=== PATIENT | female | born 1935 | race Caucasian/White ===

== ENCOUNTER → 2018-01-27 | Outpatient (CLI) | payer OTHER ==
[~2018-01-27] MED LIST: ASPIR 8181 MG PO; CARDIZEM CD240 M1 PO; CENTRUM SILVER1 EAC4 PO; FISH OIL 1,001000 M2 PO; IBUPROFEN 200200 M1 PO; PREVACID30 MG PO; TRAMADOL 50 MG50 MG PO; ZOCOR20 MG PO
== END ==
LOC: RAD 09:39
DX: R05 Cough (principal); D71 Functional disorders of polymorphonuclear neutrophils; I70.0 Atherosclerosis of aorta

== ENCOUNTER 2019-01-06 11:05 | Inpatient (IN) | payer OTHER ==
[~2019-01-06] VITALS: Ht 162.6 cm; Wt 57.0 kg
--- NOTE | ~2019-01-06 | H ---
[facility] [place] [address] HISTORY AND PHYSICAL Name: COTY LUZ Room #: 513-P ADM IN M.R.#: [id number] Admission: 01/06/19 ������������������ Attend Phys: Tremayne Tsang MD Discharge: ������������������ Date of : 34 Report #: [id number] THIS REPORT FOR: //name// CC: Tremayne Luz DATE OF SERVICE: 01/06/2019 POSTADMISSION PHYSICIAN EVALUATION: SUBJECTIVE: This is an 83-year-old white female who was admitted from [facility] with right basal ganglia intracranial hemorrhage, left hemiparesis, dysarthria, hypertension. She had a moderate size right basal ganglia hemorrhage with intraventricular extension of the hemorrhage. She was followed conservatively by Neurosurgery. Please see the full admission note dictation from Dunia Hunter regarding the full history and physical. PAST MEDICAL HISTORY: Please see the full medication listing. SOCIAL HISTORY: Please see the full medication listing. HABITS: Please see the full medication listing. CODE STATUS: Please see the full medication listing. ALLERGIES: Please see the full medication listing. MEDICATIONS: Please see the full medication listing. REVIEW OF SYSTEMS: She complains of some nausea this morning. Had some right hip discomfort. No complaints of chest pain, shortness of breath, abdominal discomfort. PHYSICAL EXAMINATION: VITAL SIGNS: Temperature 97.8, pulse 64, respirations 22, blood pressure is 90/46. NEUROLOGIC: She is alert, pleasant, small statured female. She does have some mild dysarthria with her speech. While I was examining her, she had complaints of nausea. CHEST: Sounded clear to auscultation. CARDIOVASCULAR: Regular rate and rhythm. ABDOMEN: Bowel sounds positive, nontender. GENITOURINARY AND RECTAL: Deferred. EXTREMITIES: She does have some decreased range of motion of the right upper extremity, but appears to have reasonable certified medical records coder, strengths probably grade 3+ to 4-/5, right lower extremity is probably 3+ to 4-/5, left upper extremity [facility] [address] [place] [address] HISTORY AND PHYSICAL Name: COTY LUZ Room #: 51-[facility] [place] [facility].#: [id number] Admission: 01/06/19 ������������������ Attend Phys: Tremayne Tsang MD Discharge: ������������������ Date of : 34 Report #: [id number] revealed decreased tone. She could not move her fingers for any certified medical records coder, but appeared to have at least 2/5 with left elbow flexion and extension. As far as her left lower extremity she was able to extend from the hip, but I could not have actually ____ volitionally move that left leg other than some gross extension. No focal calf swelling. No distal lower extremity edema. She appears to have decreased in distal sensation with her prior diagnosis of peripheral neuropathy. We also has decreased sensation of that left upper and left lower extremity. She has definite decreased sitting balance. HISTORY OF PRESENT ILLNESS: Shortly after my evaluation, I was called back to see her and she had complaints of some diaphoresis and actually had an apparent presyncopal episode with some decreased responsiveness was seen sitting in the wheelchair. We transferred her into the bedside chair tilt, the head back and she became more responsive. Her blood pressure was sitting in the wheelchair was 90/46 with a pulse of 64. Once we got her lying in bed, was 134/63, pulse of 73. I asked for a rapid response to be called. We did transfer her to the bed, she became more alert, was pleasant, appropriate. EKG changes were noted with question of a possible acute CO. I met with Dr. Luz and she has been here to assess the patient as well. The plan is to have her go down to the coronary care unit for further assessment and evaluation. ASSESSMENT: 1. Right basal ganglia intracranial hemorrhage. 2. Left hemiparesis. 3. Near syncopal episode. 4. Dysarthria. 5. Hypertension with goal of systolic blood pressure to be less than 140. 6. Peripheral neuropathy. 7. Gastroesophageal reflux. 8. Glaucoma. 9. Hyperlipidemia. 10. Right hip pain status post fall with negative x-rays for acute process. PLAN: The patient was admitted for acute in-hospital inpatient rehabilitation, but will now be transferred down to the CCU. From a postadmission physician evaluation perspective, there are relevant changes since the preadmission screening as well documented above. We will be following along with the patient as outplacement consultant post-discharge. ��������������������������������������������� ���������������������������������������� By: ��������������������������������������������� 0917 0950 Tremayne Tsang MD /nt
--- NOTE | ~2019-01-06 | D ---
[facility] [place] [address] DISCHARGE SUMMARY Name: COTY LUZ Room #: 202-P ADM IN M.R.#: [id number] Admission: 01/06/19 ������������������ Attend Phys: Tremayne Tsang MD Discharge: ������������������ Date of : 34 Report #: [id number] THIS REPORT FOR: //name// CC: Tremayne Luz DATE OF SERVICE: 01/07/2019 Please see the post-admission physician evaluation dictation. The patient is being discharged to the CCU from the rehab hagen to rule out for an UT and for further evaluation. DISCHARGE DIAGNOSES: From the rehab hagen include the followin. Right basal ganglia intracranial hemorrhage. 2. Left hemiparesis. 3. Presyncopal episode. 4. Dysarthria. 5. Hypertension. 6. Peripheral neuropathy. 7. Gastroesophageal reflux disease. 8. Glaucoma. 9. Hyperlipidemia. 10. Right hip pain status post fall with negative x-rays. Continued care as per Dr. Luz. We will follow, counseled regarding rehab issues from a consult basis. ��������������������������������������������� ���������������������������������������� By: ��������������������������������������������� 0921 1229 Tremayne Tsang MD /nt
[~2019-01-06 11:05] MED LIST changes: +FLUSH IV PUSH; +HOME MEDICATION OPHTHALMIC; +MIRALAX17 GM PO; +Tylenol 325MG Caplet PO
[2019-01-06 11:20] VITALS: BP 139/63
[2019-01-06 11:46] VITALS: BP 139/63
--- NOTE | 2019-01-06 12:10 | NUR ---
PT ARRIVED TO IN [facility]IA [facility]. SHE WAS ASSISTED VIA SANGEETA LIFT TO THE WHEELCHAIR AND LATER STATED TO RN THAT THE TRANSPORTER STILL HAD HER GLASSES, AND THAT SHE HAD FALLEN OUT OF THE WHEELCHCAIR WHILE IN THE TRANSPORT VAN, AND THEY HAD TO CALL 911 FOR ASSIST ON THE WAY HERE TO [facility]. SR. CASAREZ NOTIFIED NM OF THIS IMMEDIATELY, AND WHEN NM CAME TO PT'S ROOM, THE [employer] RECRUITER EVER NIXON WAS AT BEDSIDE, HAD RETURNED PT'S GLASSES, AND EXPLAINED TO PT'S DAUGHTER COTY AND PT'S GRANDSON THAT PT HAD INDEED SLID OUT OF HER WHEELCHAIR WHILE TECH WAS DRIVING, SHE HAD IMMEDIATELY STOPPED, AND CALLED 911, AND THE [facility]RE DEPT ARRIVED AND ASSISTED PT BACK INTO THE TO COMPLETE HER TRIP TO [facility]. THERAPY WAS HELD AND TYLER MIX EXAMINED THE PATIENT AND ORDERED XRAYS FOR BILAT HIPS AND PELVIS. COUTURIERE WAS NOTIFIED. FAMILY AT BEDSIDE.
--- NOTE | 2019-01-06 13:52 | NUR ---
new admit today team meeting, recommendation : xray rt fall in transport slid out of wc on way here. therapy evals and will re team .
--- NOTE | 2019-01-06 14:45 | NUR ---
DR. PENA WAS NOTIFIED OF INCIDENT DURING TRANSPORT FROM [facility], AND ADDED XRAY FOR LT KNEE. ALL XRAY RESULTS WERE REVIEWED IN TEAM CONFERENCE WITH THE INTERDISCIPLINARY TEAM AND IT WAS DEEMED APPROPRIATE TO RESUME FULL THERAPIES, THERE WAS NO REPORT OF FRACTURE. RN SR. CASAREZ NOTIFIED PT AND FAMILY AT THE BEDSIDE THAT WE ARE OK TO RESUME THERAPIES, AND FAMILY STATED THAT THEY HAD NOTIFIED DR. RAMÍREZ OF THE INCIDENT, THEY HAD PREVIOUSLY ASKED SR. CASAREZ TO REFRAIN FROM CALLING HIM RIGHT AWAY. PT WORKED WITH PHYSICAL THERAPY, BUT C/O NAUSEA. ANTIEMETIC ORDERED PER DR. RMAÍREZ, AND RN ASSESSING WITH PT CURRENTLY.
--- NOTE | 2019-01-06 19:35 | NUR ---
RECEIVED REPORT FROM MED AT 1030. PT ARRIVED TO [facility] AT 5N AROUND 1115. PT ADMITED FOR RIGHT BASAL GANLIA ICH, WITH LEFT SIDE HEMPARESIS AND DYSARTHRIA.PT REPORTS SHE HAD ROUGH DRIVE. TRANSPORTATION REPORTED THAT SHE WAS SLIPPED FROM HER WC TWICE AND [employer] HAD TO BE CALLED AND HELP PT GET BACK TO HER WC. NOTIFIED DR. PENA, AND CRISTY ABOUT THE INCIDENT. OBTAINED ORDER FOR XRAY OF BILATERAL HIPS, LEGS AND KNEES. NO FRACTURES AT THIS MOMENT. HAD LITTLE PAIN EARLIER BUT DENIES NOW. XRAY RESULTS WERE NOTIFIED DR. HOLLEY WHO CAME AND REVIEWED ADMISSION MEDS. DR. FRANCOIS ALSO WAS NOTIFIED PER CONSULT. PATIENT A/O X4. HAS POOR EYE SIGHT, LEFT SIDE WEAKNESS BUT COGNITIVE INTACT. VSS ON RA. NO SKIN ISSUES, EXCEPT LACERATION ON RIGHT ANKLE WITH BANDAID, NO NEED OF TREATMENT. WILL CONTINUE TO MONITOR. PATIENT EVALUATED BY PHYSICAL THERAPY. CONSENTS SIGNED. ADMISSION ASSESSMENT COMPLETE. PATIENT ORIENTED TO ROOM AND REHAB UNIT. MED ORDERS FAXED TO PHARMACY. PATIENT REFUSED TO EAT LUNCH, REFUSED DINNER AT FIRST DIDN'T FEEL HUNGRY. ENCOURAGED PT TO EAT AND FED PT. SHE ATE ALL MASHED POTATOES. USED CALL LIGHT APPROPRIATELY. FALL PRECAUTIONS IN PLACE. PT CONT B &B, HAD MODERATE LOOSE STOOL PER BEDPAN. HAS LEFT SIDE WEAKNESS, NOT ABLE TO TURN BY HERSELF, SHE IS ON TURN Q2HR. GAVE REPORT TO NIGHT NURSE TO CONTINUE TO MONITOR. RESTING IN BED AT CHANGE OF SHIFT. FAMILY AT BEDSIDE.
[2019-01-06 19:40] VITALS: BP 119/54
--- NOTE | 2019-01-07 03:14 | NUR ---
TURNING PATIENT Q2H, EXPLAINED TO PATIENT AND OVERNIGHT VISITOR (DAUGHTER) THAT WE REALLY LIKE TO TURN PATIENTS UNTIL THEY ARE A LITTLE MORE MOBILE. URINATING ON BEDPAN, 300 CC VOID WAS ACCIDENTLY DUMPED INSTEAD OF SENT TO LAB FOR UA, WILL TRY TO AVOID DOING THAT AGAIN. INCONTINENT SMEAR AMOUNT BM
[2019-01-07 06:04] LABS: MCH 30.9 pg (26.0-34.0); MCHC 33.4 g/dL (28.0-37.0); MCV 92.5 fL (80.0-100.0); RBC 4.22 mil/uL (4.20-5.00); WBC 13.2 thou/uL (4.0-11.0)
[2019-01-07 06:12] LABS: CALCIUM 9.5 mg/dL (8.5-10.1); CREATININE 0.9 mg/dL (0.6-1.0); POTASSIUM 4.3 mmol/L (3.5-5.1)
[2019-01-07 07:30] VITALS: BP 123/64
[2019-01-07 08:40] VITALS: BP 90/46
[2019-01-07 08:57] VITALS: BP 90/46
--- NOTE | 2019-01-07 09:08 | NUR ---
ASSUME PT CARE AT 0700. NIGHT NURSE SAID PT HAD RESTFUL NIGHT. ATTEMPTED TO UA THIS AM. BUT PT WAS INCONT THIS AM. ASSISTED PT UP TO DINNING ROOM. ST WORKED WITH PT THIS AM. PT ATE 20% BREAKFAST, C/O PAIN ON RIGHT HIP, TYLENOL GIVEN. C/O NAUSEA. PRN ZOFRAN GIVEN AND ASSISTED PT ROOM. PT FELT UNCOMFORTABLE ASSISTED PT TO RECLINER. VSS TAKEN. PT WAS DIAPHOROSIS, CLAMMY. HR 90/46, HR 64 R22, SAT 92% ON RA. RAPID RESPONSE CALLED. DR. KING AND DR. PENA PRESENT. EKG SHOWS ACUTE AZ. VP SECURITIES PRESENT AND PT WILL TRANSFER TO ROOM 202. CALLED CCU AND THEY WILL CALL BACK LATER FOR REPORT. FAMILY AT BEDSIDE. WILL CONTINUE TO MONITOR.
[2019-01-07] MEDS ORDERED: CARDURA4 MG PO ×2 (09:16)
[2019-01-07] MEDS ORDERED: BENAZEPRIL HCL20 MG PO ×2 (09:16)
[2019-01-07] MEDS ORDERED: CALCIUM 500 +1 EAC5 PO ×2 (09:17)
[2019-01-07] MEDS ORDERED: TYLENOL EXTRA500 MG PO ×2 (09:17)
[2019-01-07] MEDS ORDERED: BISACODYL SUPP10 MG RECTAL ×2 (09:17)
[2019-01-07] MEDS ORDERED: COLACE 100 MG100 MG PO ×2 (09:19)
[2019-01-07] MEDS ORDERED: SENNA8.6 MG PO ×2 (09:19)
[2019-01-07] MEDS ORDERED: MILK OF MA2400 MG/11 PO ×2 (09:19)
[2019-01-07] MEDS ORDERED: PROTONIX 20 MG20 M1 PO ×2 (09:20)
[2019-01-07] MEDS ORDERED: ZOFRAN 4 MG ORAL4 MG DISSOLVE ×2 (09:20)
[2019-01-07] MEDS ORDERED: PREDNISONE 5 MG5 M1 PO ×2 (09:22)
[2019-01-07] MEDS ORDERED: HOME MEDICATION SUBQ ×2 (09:22)
[2019-01-07] MEDS ORDERED: HOME MEDICATION OPHTHALMIC ×4 (09:22)
[2019-01-07] MEDS ORDERED: A THRU Z ADVAN1 EAC1 PO ×2 (09:22)
--- NOTE | 2019-01-07 09:30 | NUR ---
RAPID RESPONSE CALLED AT 0842 THIS AM R/T NEAR SYNCOPE WITH HYPOTENSION AT 90/48. EKG CHANGES NOTED, PT WILL BE TRANSFERRED TO FOR CLOSER MONITORING PER DR RAMÍREZ ORDER.
--- NOTE | 2019-01-07 11:01 | H ---
[facility] [place] [address] HISTORY AND PHYSICAL Name: DESIREEWAIKim Chirinos Room #: 202-P ADM IN M.R.#: [id number] Admission: 01/06/19 ������������������ Attend Phys: Tremayne Tsang MD Discharge: ������������������ Date of : 34 Report #: [id number] THIS REPORT FOR: //name// CC: Tremayne Myrick MD DATE OF SERVICE: 01/06/2019 CHIEF COMPLAINT: Stroke. HISTORY OF PRESENT ILLNESS: The patient is an 83-year-old [place] female who suffered an acute stroke involving the right basal ganglia. It was a hemorrhagic stroke with blood noted in the ventricles on initial and subsequent CT scans. The second scan was CTA and aneurysm was not seen. No malignancy or evidence of tumor or midline shift was seen either. Her main deficit is marked left-sided loss of strength in the face, upper and lower extremities. She maintained excellent mental function throughout her stay at the [facility]. There was no trauma associated with the incident. She apparently passed out at the time of the initial bleed and was caught before she fell. Paramedics were called at the scene immediately and the patient was evaluated and admitted through the [facility] Emergency Room. PAST MEDICAL HISTORY: 1. Autoimmune uveitis being treated with Humira under the care of Dr. Royce Myrick. 2. Polymyalgia rheumatica. 3. Hypertension. 4. Hyperlipidemia. 5. She is 14, para 14, LC 14. 6. She has had bilateral cataract surgeries. 7. She has had hysterectomy after failed uterine prolapse. 8. She also has a history of osteoarthritis in multiple sites including the lower back and knees. 9. Gastroesophageal reflux disease history. 10. She has had bilateral carpal tunnel repairs in the last couple of years. ALLERGIES: She has no known drug allergies. MEDICATIONS: At the time of this admission includes doxazosin 1 mg by mouth nightly (new medication), lisinopril 20 mg by mouth daily (new medication), atorvastatin daily, multivitamin daily, calcium with vitamin D supplements, pantoprazole, Simbrinza eyedrops 1 drop in each eye b.i.d. for glaucoma, [address] [address] HISTORY AND PHYSICAL Name: COTY LUZ Room #: 202-P [facility].#: [id number] Admission: 01/06/19 ������������������ Attend Phys: Tremayne Tsang MD Discharge: ������������������ Date of : 34 Report #: [id number] prednisolone eyedrops 1% one drop in each eye twice daily for treatment of uveitis. (The patient was until recently treated with diltiazem for her hypertension, but had developed orthostatic hypotension issues and the medication was discontinued with resolution of that problem). FAMILY HISTORY: Her father in his late 60s or early 70s from emphysema and coronary artery disease. He was a smoker. Her mother approximately the same age from leukemia. Her sister of complications of a diffuse meningioma approximately 25 years ago. She has one additional sister who is alive and well. SOCIAL HISTORY: She is 3 years ago, mother of 14 children. She has no vices as regards to tobacco or alcohol or illicit substances. She is Caodaism. REVIEW OF SYSTEMS: During the transfer from [facility] on the date of this admission, she apparently slipped from her wheelchair within the wheelchair van twice. The second time she was unable to be lifted and paramedics had to be called in order to reestablish her in her wheelchair. She currently denies any problems. PHYSICAL EXAMINATION: VITAL SIGNS: Temperature was 36.5 degrees Celsius, pulse 73, respirations 20, blood pressure 139/63 with a pulse oximetry of 96% on arrival. GENERAL: The patient is a pleasant, somewhat tired and nauseous elderly [place] female in no acute distress. HEENT: The extraocular muscles are intact. There is a left facial droop, which is mild to moderate in severity. Her voice is fairly normal. Oropharynx is moist and pink. No lesions, no exudates. No focal head trauma noted during exam. NECK: Without adenopathy or thyromegaly or mass. LUNGS: Clear bilaterally. CARDIAC: Reveals a regular rate and rhythm with a systolic ejection murmur. ABDOMEN: Soft. Bowel sounds are present, no visceromegaly or masses. EXTREMITIES: Show a contusion with joint effusion at the left knee medially and suspicion of developing bruise. Peripheral pulses easily palpated in all 4 distal extremities. NEUROLOGIC: The patient has a diffuse left hemiplegia/hemiparesis. There is a minimal movement in the left upper extremity and even less in the left lower extremity. Her right side is intact. She does have some left-sided neglect. It is less noticeable today than at the time of presentation. MENTAL STATUS: She is alert, fully oriented, no hallucinations or delusions, somewhat of a flat affect because of the facial paralysis. [facility] [address] [place] [address] HISTORY AND PHYSICAL Name: COTY LUZ Room #: 202-P ADM IN M.R.#: [id number] Admission: 01/06/19 ������������������ Attend Phys: Tremayne Tsang MD Discharge: ������������������ Date of : 34 Report #: [id number] LABORATORY DATA: X-rays of the bilateral hips and pelvis and left knee today were unremarkable, mild osteoarthritic changes are noted. ASSESSMENT AND PLAN: 1. Right basal ganglia hemorrhagic stroke - I had an extensive visit with Dr. Mayo at [facility] from the hospitalist Neurology Department. Her initial thought was that the stroke was related to hypertension. Upon hearing about some of her other issues such as the peripheral neuropathy and the uveitis and possible polymyalgia rheumatica, she is inclined to believe that the patient may have an autoimmune condition that contributes to this. Her recommendations included aggressive inpatient rehabilitative therapy as well as followup scan of her brain using magnetic resonance imaging with contrast in about 2 months. She would like to have the patient seen in the Neurology Clinic in followup after discharge. 2. Hypertension - See current medications regimen. 3. Acute intermittent urinary retention since the stroke - she was started on doxazosin at night to see if that would help lower blood pressure and help her with her bladder emptying. She has had postvoid residual scans and straight caths that revealed anywhere from 140 to 500 plus mL of urine in the past several days since the stroke. She did have a urinalysis prior to leaving , which suggested that that was positive for nitrites and as there is a possibility she is developing a urinary tract infection, we will get a repeat urinalysis with culture again here tomorrow. 4. Autoimmune uveitis, currently being treated with Humira. She had her last Humira injection 48 hours ago. We will continue these injections every 2 weeks as per the program Dr. Myrick has set her upon. We will supply these from her home regimen. 5. Suspected polymyalgia rheumatica - I will discuss this possible diagnosis with Dr. Myrick. At the time of the stroke, she was on a prednisone regimen which was tapering that I had established and had intended to speak with Dr. Myrick about prior to her next followup visit with him. I have further concerns that should the peripheral neuropathy and uveitis and polymyalgia all be related, might her stroke have an autoimmune (vasculitis) etiology. We will further discuss with Dr. Myrick. 6. Gastroesophageal reflux disease - continue current proton pump inhibitor therapy. 7. Hyperlipidemia - continue on atorvastatin. 8. Healthcare maintenance - the patient to have a bone density at her next visit with Dr. Myrick. ��������������������������������������������� <ELECTRONICALLY SIGNED> ���������������������������������������� By: Royce Luz MD ��������������������������������������������� 01/07/19 1101 1819 1912 Royce Luz MD /nt
--- NOTE | 2019-01-07 11:27 | 2DMMODE ---
[facility] [email or web address] [address] 2 D/M-MODE ECHOCARDIOGRAM Name: COTY RAMÍREZ Room #: 202-P [facility] IN ..#: [id number] ������������� Admission: 01/06/19 ������������� Attend Phys: Tremayne Tsang, Discharge: ��� ������������� ��� Date of : 34 Date of Service: 01/07/19 1127 �� Report #: [id number] �������� ��������������������������������������������[id number] THIS REPORT FOR: //name// APPROVED REPORT Study performed: 01/07/2019 10:17:26 EXAM: Comprehensive 2D, Doppler, and color-flow Echocardiogram Patient Location: Bedside Room #: 202 Status: routine BSA: 1.60 HR: 71 bpm BP: 90/46 mmHg Rhythm: NSR Other Information Study Quality: Adequate Risk Factors: Cardiac Risk Factors: Hyperlipidemia Indications Aortic Valve Disease Murmur Hypertension/HDD 2D Dimensions RVDd: 27.54 mm LVOT Diam: 18.48 (18-24mm) IVC: 13.00 mm Volumes Left Atrial Volume (Systole) Single Plane 4CH: 51.90 mL Single Plane 2CH: 41.99 mL LA ESV Index: 33.00 mL/m2 Aortic Valve AoV Peak Kirill.: 3.84 m/s AO Peak Gr.: 58.84 mmHg LVOT Max P.80 mmHg AO Mean Gr.: 32.73 mmHg LVOT Mean P.18 mmHg AO V2 Mean: 2.64 m/s LVOT Max V: 1.30 m/s AO V2 VTI: 73.21 cm LVOT Mean V: 0.96 m/s YANET (VTI): 0.99 cm2 LVOT V1 VTI: 26.95 cm YANET Vmax: 0.91 cm2 [facility] [place] [place] [place] [address] 2 D/M-MODE ECHOCARDIOGRAM Name: COTY RAMÍREZ Room #: 202-P [facility] IN [facility].#: [id number] ������������� Admission: 01/06/19 ������������� Attend Phys: Tremayne Tsang, Discharge: ��� ������������� ��� Date of : 34 Date of Service: 01/07/19 1127 �� Report #: [id number] �������� ��������������������������������������������[id number] SV (LVOT): 72.23 mL Mitral Valve E/A Ratio: 0.5 MV Decel. Time: 513.85 ms MV E Max Kirill.: 0.78 m/s MV A Kirill.: 1.43 m/s MV PHT: 149.02 ms IVRT: 133.79 ms Pulmonary Valve PV Peak Kirill.: 0.99 m/s PV Peak Gr.: 3.94 mmHg Pulmonary Vein P Vein S: 0.54 m/s P Vein A: 0.32 m/s P Vein D: 0.32 m/s P Vein A Dur.: 87.7 msec P Vein S/D Ratio: 1.69 Tricuspid Valve TR Peak Kirill.: 2.50 m/s TR Peak Gr.: 24.93 mmHg PA Pressure: 30.00 mmHg Left Ventricle The left ventricle is normal size. There is normal LV segmental wall motion. Mild concentric left ventricular hypertrophy. Left ventricular systolic function is hyperdynamic. LVEF is >70%. Grade I - abnormal relaxation pattern. Right Ventricle The right ventricle is normal size. The right ventricular systolic function is normal. Atria Left atrium is at the upper limits of normal. The right atrium size is normal. Aortic Valve The aortic valve is normal in structure. Aortic valve is calcified. No aortic regurgitation is present. Moderate to severe aortic stenosis. Mitral Valve The mitral valve is normal in structure. Trace mitral regurgitation. No evidence of mitral valve stenosis. [facility] [address] [place] [address] 2 D/M-MODE ECHOCARDIOGRAM Name: DESIREECOTY Room #: 202-P [facility] IN .R.#: [id number] ������������� Admission: 01/06/19 ������������� Attend Phys: Tremayne Tsang, Discharge: ��� ������������� ��� Date of : 34 Date of Service: 01/07/19 1127 �� Report #: [id number] �������� ��������������������������������������������[id number] Tricuspid Valve The tricuspid valve is normal in structure. There is trace tricuspid regurgitation. Estimated PAP 30 mmHg. There is no pulmonary hypertension. Pulmonic Valve The pulmonary valve is normal in structure. There is no pulmonic valvular regurgitation. Great Vessels The aortic root is normal in size. IVC is normal in size and collapses >50% with inspiration. Pericardium There is no pericardial effusion. <Conclusion> The left ventricle is normal size. LVEF is >70%. The left ventricle is normal size. LVEF is >70%. Left atrium is at the upper limits of normal. The aortic valve is normal in structure. Aortic valve is calcified. No aortic regurgitation is present. Moderate to severe aortic stenosis. The mitral valve is normal in structure. Trace mitral regurgitation. The tricuspid valve is normal in structure. There is trace tricuspid regurgitation. Estimated PAP 30 mmHg. There is no pulmonary hypertension. The pulmonary valve is normal in structure. There is no pericardial effusion. ��������������������������������������������� <ELECTRONICALLY SIGNED> ���������������������������������������� By: Bin Santana MD ��������������������������������������������� 01/07/19 1127 1127 112 Bin Santana MD /INF
--- NOTE | 2019-01-07 11:36 | NUR ---
OCCUPATIONAL THERAPY ORDERS RECEIVED AND A CHART REVIEW WAS COMPLETED. PRIOR TO ATTEMPTING EVAL, RAPID RESPONSE WAS CALLED TO PT'S ROOM. OT EVAL WAS NOT COMPLETED PT'S MEDICAL STATUS CHANGED AND SHE WAS TRANSFERED TO ACUTE CARE FLOOR. RECOMMEND OT EVAL ONCE PT IS MEDICALLY STABLE.
--- NOTE | 2019-01-07 12:56 | NUR ---
Nutrition: Received consult upon admission to rehab with no reason stated. Admit with [facility]. Pt transferred off unit for emergent cath following UNIFORM MAKER. Intake at 2 meals so far on unit 20-25%. ST following for swallowing precautions but pt remains on regular diet. Stable weights per hx. RD will followup when pt transfers back to unit for supplement need/food preferences.
--- NOTE | 2019-01-07 16:43 | H ---
[facility] [place] [address] HISTORY AND PHYSICAL Name: COTY LUZ Room #: 513-P [facility] IN M.R.#: [id number] Admission: 01/06/19 ������������������ Attend Phys: Tremayne Tsang MD Discharge: 01/07/19 ������������������ Date of : 34 Report #: [id number] THIS REPORT FOR: //name// CC: Tremayne Luz DATE OF SERVICE: 01/07/2019 ANTICIPATED DATE OF ADMISSION: 01/07/2019. CHIEF COMPLAINT: Presyncopal episode. HISTORY OF PRESENT ILLNESS: The patient is an 83-year-old [place] female who was admitted from [facility] with a recent right basal ganglia hemorrhagic stroke. The hemorrhagic stroke left blood in the ventricle on the right side as well. There was no evidence of hydrocephalus. Followup CTA of the brain revealed the stability of the hemorrhage and did not reveal any significant evidence for vascular anomalies. The morning after her admission to the Rehab Unit at [facility], she was apparently being prepared to get up when she slumped over and was found to have a blood pressure of 90/46 with a pulse in the 60s. The rest of her vital signs were stable and normal. She was afebrile and after being laid back down, her blood pressure came back up to 130 systolic and no overt deficits were noted. EKG done by the rapid response team at the scene showed a normal sinus rhythm with a right bundle branch block, which was not a new finding, and suggestive of acute lateral infarct - the latter finding cannot be made reliably by EKG in the presence of right bundle branch block. Because of the concerns about a possible acute infarct in the presence of recent CAT SWAMPER hemorrhage, it was decided that the patient would be best managed in a Coronary Care Unit and was discharged from the Rehab Unit and readmitted in the CCU today. PAST MEDICAL HISTORY: Includes autoimmune uveitis; suspected polymyalgia rheumatica; hypertension; hyperlipidemia; systolic ejection murmur, not yet fully evaluated; bilateral cataract surgeries; hysterectomy in the past; osteoarthritis, multiple sites; gastroesophageal reflux disease and bilateral carpal tunnel repairs. She had an ischemic colitis incident about 3-4 months ago that was self-limited and completely resolved. She also has glaucoma. ALLERGIES: She has no known drug allergies. [address] [address] HISTORY AND PHYSICAL Name: COTY LUZ Taran Room #: 513-P [facility] IN [place].#: [id number] Admission: 01/06/19 ������������������ Attend Phys: Tremayne Tsang MD Discharge: 01/07/19 ������������������ Date of : 34 Report #: [id number] MEDICATIONS: Her medication list includes Simbrinza eye drops 1 drop each eye twice daily, Pred Forte eye drops 1 drop each eye twice daily and Refresh Tears q.i.d. in each eye p.r.n. dry eyes. She was recently taken off of diltiazem because of dizziness. She was started on lisinopril 20 mg by mouth daily at . She was started on doxazosin 1 mg by mouth nightly as of last night for treatment of hypertension and urine retention that is a new finding since the stroke. Atorvastatin 20 mg daily. Multivitamin daily, calcium with vitamin D daily and pantoprazole 20 mg by mouth daily. SOCIAL HISTORY: She is , mother of 14 children. No vices as regards to smoking, alcohol or recreational drugs. She was born in the country of [place] and has lived in [place] since 1959. Prior to the stroke, she was living in a condo that was part of -[facility] alone and not driving. FAMILY HISTORY: Father of complications of coronary artery disease and emphysema and, I believe, he had a stroke. Her mother of leukemia. She had a sister who of diffuse meningioma. REVIEW OF SYSTEMS: Since the stroke, she has had occasional headaches and nausea and urinary retention issues that were manifested as urinary frequency and nocturia and urgency. She has not had any episodes of chest pain or shortness of breath. PHYSICAL EXAMINATION: VITAL SIGNS: Vital signs from this morning are in the computer and reviewed. GENERAL: The patient is an older [place] female, in no distress at the time of my exam. She is obviously left hemiparetic. HEENT: There is a slight left facial droop. Oropharynx is moist and pink. No lesions, no exudates. Extraocular muscles are intact. SKIN: No longer diaphoretic. NECK: Without adenopathy, thyromegaly, mass or significant bruit. LUNGS: Fairly clear bilaterally. CARDIAC EXAMINATION: Reveals a regular rhythm, with a grade 2/6 systolic ejection murmur. ABDOMEN: Soft. Bowel sounds present. No visceromegaly or masses. EXTREMITIES: No cyanosis or clubbing or peripheral edema. NEUROLOGICAL EXAMINATION: Mental Status: She is fully alert, oriented. No hallucinations, no delusions, able to think abstractly. Reasonably good short and long-term memory on gross exam. She has Babinski sign on the left foot. She has minimal movement in her left upper and left lower extremity. No focal deficits in her right side at all. She is unable to walk at this time. Deep tendon reflexes are not reassessed today. She has sensory deficits in a stocking distribution and glove distribution bilaterally. DIAGNOSTIC DATA: EKG is as described above. Morning labs from the date of this admission show a basic metabolic panel with sodium of 139, potassium 4.3, [facility] [address] [place] [address] HISTORY AND PHYSICAL Name: COTY LUZ Room #: 513-P [facility] IN [facility].#: [id number] Admission: 01/06/19 ������������������ Attend Phys: Tremayne Tsang MD Discharge: 01/07/19 ������������������ Date of : 34 Report #: [id number] chloride of 105, bicarbonate of 27, BUN of 28, creatinine 0.9, the anion gap is 7, the glucose is 108 nonfasting and the calcium is 9.5. The estimated GFR is 60 mL per minute. The CBC without differential shows a white count of 13,200 while on oral steroids (prednisone 50 mg by mouth twice daily), hemoglobin is 13.0, hematocrit 39.0, normal red blood cell indices and platelet count is 280,000. ASSESSMENT AND PLAN: 1. Syncopal episode with the patient to the Coronary Care Unit for further evaluation and treatment. We will rule out myocardial infarction with enzymes as the EKG is not reliable to that purpose. We will get a Cardiology consult. I have discussed the case with Dr. Jen Santos's nurse, and echocardiogram, which was previously ordered has already been done and shows an aortic valve stenosis to a moderate severity. Preliminary measurements appear to be about 0.9 to 1 cm2 in diameter in surface area of the aortic valve. Ejection fraction is excellent, even hyperdynamic. We will await the formal report later. The patient was just started on alpha-toya therapy and is likely to have first dose phenomenon seen with that class of medications. We will stop the alpha toya as well as hold the lisinopril for now. If an alpha toya is needed in the future for her urine retention issues, a more selective one might be chosen, such as Flomax, to help reduce the risk of sudden decrease in blood pressure. 2. 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 Dr. Tsang already reconsulted for managing down here. PT and OT have been ordered. Our goal is to get the patient back up to the Rehab Unit as soon as she is medically cleared from any other significant cardiovascular problems. 3. Uveitis, on Humira. Possible polymyalgia rheumatica versus vasculitis - we will get autoimmune workup. I have discussed the case by phone with her taxation agent and we will discuss those test results with him when they are available. For now, we will continue the steroids and Humira as previously ordered. 4. Gastroesophageal reflux disease. Continue current medication. 5. Hyperlipidemia. We will continue current medication. 6. History of hypertension. We will hold medications for now and make adjustments with a particular interest given to the recommendations by my Cardiology colleagues. ��������������������������������������������� <ELECTRONICALLY SIGNED> ���������������������������������������� By: Royce Luz MD ��������������������������������������������� 01/07/19 1643 1119 1240 Royce Luz MD /nt
--- NOTE | 2019-01-08 08:32 | EKG ---
[place] [address] [facility] [place] [address] ELECTROCARDIOGRAM REPORT Name: COTY LUZ Room #: 513-P [facility] IN ..#: [id number] ������������������ Admission: 01/06/19 ������������������ Attend Phys: Tremayne Tsang MD Discharge: 01/07/19 ������������������ Date of : 34 Report #: [id number] ����������������������������������������������������������������� [id number] THIS REPORT FOR: //name// [facility] Test Date: 2019-01-07 Test Time: 09:02:37 Pat Name: COTY LUZ Department: Room: [facility] Gender: F Branch Director: GR : 1935 Requested By: Royce Luz Order Number: [id number] MD: Bertram Leon Measurements Intervals [place] Rate: 76 P: 55 MD: 131 QRS: -3 QRSD: 143 T: -1 QT: 395 QTc: 445 Interpretive Statements Sinus rhythm Right bundle branch block Compared to ECG 07/09/2018 07:36:28 No significant changes Electronically Signed On 01-08-2019 8:31:57 CDT by Bertram Leon [email or web address] ��������������������������������������������� <ELECTRONICALLY SIGNED> ���������������������������������������� By: Bertram Leon MD, [facility] ��������������������������������������������� 01/08/19 0831 1 1 Bertram Leon MD, [facility] /EPI
--- NOTE | 2019-01-08 15:07 | H ---
[facility] [place] [place] [address] HISTORY AND PHYSICAL Name: DESIREECOTY E Room #: 513-P [facility] IN M.R.#: [id number] Admission: 01/06/19 ������������������ Attend Phys: Tremayne Tsang MD Discharge: 01/07/19 ������������������ Date of : 34 Report #: [id number] THIS REPORT FOR: //name// CC: Tremayne Luz DATE OF SERVICE: 01/06/2019 HISTORY OF PRESENT ILLNESS: This is an 83-year-old female who presented to [facility] with sudden onset of vomiting, dysarthria and left-sided weakness. CT head in the Emergency Department confirmed a moderate sized right basal ganglia hemorrhage with intraventricular extension of hemorrhage that was done on 01/01/2019. She was admitted to the ICU. Neurosurgery was consulted. There was no intervention required. Goal systolic blood pressure was to keep less than 140. She was initially treated with a Cardene drip that improved. She also had complaints of headache that improved. She was evaluated by therapy and due to her dysarthria and left-sided hemiparesis, she has been admitted to [facility] inpatient rehab. During the patient's transfer from to [facility] in the wheelchair van, she slid from the wheelchair onto the floor. She did hit her right hip and her left knee was bent underneath her. Upon arrival to the inpatient rehab unit, bilateral hip and pelvis and knee films were obtained with no acute process noted. Currently, the patient denies headache, dizziness or blurred vision. She denies cough or shortness of air. She denies abdominal pain, nausea or constipation. She denies dysuria or urinary retention. She does have numbness and tingling, especially in the left arm. She is not able to move her left hand or upper extremity. PAST MEDICAL HISTORY: Degenerative joint disease, hypertension, glaucoma, GERD, right bundle branch block, Janette tumor of ovary, polymyalgia, uveitis. SOCIAL HISTORY: The patient lives alone in a house. She has 0 entry stairs, 0 stairs inside. She was independent with ADLs and IADLs. She does have a 4-wheeled walker. She has 14 children, 7 that live in town and are very supportive. Denies previous falls. She does wear glasses. HABITS: Nonsmoker, nondrinker, no illicit drug use. CODE STATUS: Full code. ALLERGIES: No known drug allergies. MEDICATIONS: Multivitamin 1 tablet daily, lisinopril 20 mg daily, Protonix 20 mg daily, doxazosin 1 mg at bedtime, atorvastatin 10 mg at bedtime, prednisone 50 mg twice a day with meals, calcium plus vitamin D one tablet twice a day, Zofran p.r.n., Humira subcutaneous as directed, Tylenol 500 mg q. 6 hours p.r.n. [address] [address] HISTORY AND PHYSICAL Name: COTY LUZ Room #: 513-P [facility] IN M.R.#: [id number] Admission: 01/06/19 ������������������ Attend Phys: Tremayne Tsang MD Discharge: 01/07/19 ������������������ Date of : 34 Report #: [id number] pain, Voltaren gel q.i.d. p.r.n. pain, senna 2 tablets daily p.r.n. constipation, milk of mag 10 mL daily p.r.n., Colace 100 mg b.i.d. p.r.n., bisacodyl 10 mg at bedtime p.r.n. REVIEW OF SYSTEMS: Remainder of her 14-point review of systems is negative except as listed in the HPI. PHYSICAL EXAMINATION: VITAL SIGNS: Blood pressure 139/63, respirations 20, temperature 97.7, pulse 73, O2 sat 96% on room air. GENERAL: She is awake, alert. She is oriented x 3. She is in no acute distress. She is on room air. HEENT: Head is normocephalic. Eyes: EOMs are intact. I did not appreciate significant nystagmus. NECK: No lymphadenopathy. CARDIAC: She does have a positive murmur. S1, S2 intact. LUNGS: Clear to auscultation bilaterally, no crackles, no wheeze. ABDOMEN: Bowel sounds are positive, soft, nontender. GENITOURINARY: No CVA tenderness. EXTREMITIES: Decreased range of motion of the right upper extremity, but likely functional for daily use, poor fire range technician on the right, right upper extremity grossly 3+/5. Left upper extremity, flaccid, unable to move fingers, no fire range technician. Left lower extremity, able to flex and dorsiflex her foot, able to extend from the hip, unable to lift antigravity off the bed. Right lower extremity, negative Homans sign. Able to lift antigravity, sit to stand with max assist, bed to wheelchair with max assist and a stand pivot transfer, max assist to propel and steer 10 feet in a manual wheelchair. NEUROLOGIC: Left upper extremity, no distal sensation. Further proximal, she does have some sensation. Decreased sensation in the left lower extremity as well. She does have some dysarthria, very mild facial droop. PSYCHIATRIC: Pleasant affect. SKIN: Healing abrasion to the right ankle, otherwise scattered bruising on upper extremities, probably from multiple IV sticks. ASSESSMENT: 1. Right basal ganglia intracranial hemorrhage. 2. Left hemiparesis. 3. Dysarthria. 4. Hypertension with goal systolic blood pressure to be less than 140. 5. Peripheral neuropathy. 6. Gastroesophageal reflux disease. 7. Glaucoma. 8. Hypertension. 9. Hyperlipidemia. 10. Right hip pain, status post fall with negative x-rays for acute process. [facility] [address] [place] [address] HISTORY AND PHYSICAL Name: COTY LUZ Room #: 513-P [facility] IN [facility].#: [id number] Admission: 01/06/19 ������������������ Attend Phys: Tremayne Tsang MD Discharge: 01/07/19 ������������������ Date of : 34 Report #: [id number] PLAN: The patient has been admitted to acute inpatient rehab unit for physical, occupational and speech therapies. She will be seen by Speech for swallow and cognition eval. The patient was living independent in the community at prior level. She will have Dr. Maya see for Neuropsychology evaluation. Dr. Luz will follow for her acute medical management issues. The patient is on low endurance protocol. Social Work Services consulted for discharge planning. She is on a regular diet. We will have dietitian evaluate as well. We will have a CBC and BMP in the morning. She will have SCDs for DVT prophylaxis along with early mobilization. She will have incentive spirometry for respiratory prophylaxis. We will have a team conference next Saturday. Please see extensive orders. ��������������������������������������������� <ELECTRONICALLY SIGNED> ���������������������������������������� By: JOSE Helm ��������������������������������������������� 01/08/19 1507 1725 1817 Dunia Hunter, JOSE /nt
[2019-01-09 18:06] LABS: ANTI-DNA SCREEN 2 IU/mL (0-9); ANTI-RNP 0.4 AI (0.0-0.9)
== END 2019-01-07 13:29 | disposition short-term general hospital (02) | DRG 57 ==
LOC: 2N 11:05
PROVIDERS: Internal Medicine; Nurse Practitioner Family; ADMIT Physical Medicine & Rehabilitation
DX: G81.94 Hemiplegia, unspecified affecting left nondominant side (principal); I62.9 Nontraumatic intracranial hemorrhage, unspecified; R47.1 Dysarthria and anarthria; I10 Essential (primary) hypertension; G62.9 Polyneuropathy, unspecified; H40.9 Unspecified glaucoma; E78.5 Hyperlipidemia, unspecified; M19.90 Unspecified osteoarthritis, unspecified site; K21.9 Gastro-esophageal reflux disease without esophagitis; R33.9 Retention of urine, unspecified; E78.00 Pure hypercholesterolemia, unspecified; I45.10 Unspecified right bundle-branch block; I95.9 Hypotension, unspecified; I35.0 Nonrheumatic aortic (valve) stenosis; Z60.2 Problems related to living alone; M35.3 Polymyalgia rheumatica; Z98.41 Cataract extraction status, right eye; Z98.42 Cataract extraction status, left eye; Z90.710 Acquired absence of both cervix and uterus; Z82.49 Family history of ischemic heart disease and other diseases of the circulatory system; Z82.5 Family history of asthma and other chronic lower respiratory diseases; Z80.6 Family history of leukemia
CPT/HCPCS: 10112

== ENCOUNTER 2019-01-07 13:28 | Inpatient (IN) | payer OTHER ==
[~2019-01-07] VITALS: Ht 162.6 cm; Wt 56.7 kg
[~2019-01-07 13:28] MED LIST changes: +A THRU Z ADVAN1 EAC1 PO; +BENAZEPRIL HCL20 MG PO; +BISACODYL SUPP10 MG RECTAL; +CALCIUM 500 +1 EAC5 PO; +CARDURA4 MG PO; +COLACE 100 MG100 MG PO; +HOME MEDICATION SUBQ; +MILK OF MA2400 MG/11 PO; +PREDNISONE 5 MG5 M1 PO; +PROTONIX 20 MG20 M1 PO; +SENNA8.6 MG PO; +TYLENOL EXTRA500 MG PO; +ZOFRAN 4 MG ORAL4 MG DISSOLVE
[2019-01-07 15:31] VITALS: BP 124/54
--- NOTE | 2019-01-07 19:06 | NUR ---
ARRIVED FROM REHAB ABOUT 1130. AAOX4 VERY PLEASANT AND COOPERATIVE. NO C/O PAIN. GOOD APPETITE. VOIDS PER BEDPAN AND INCONTINENT OF URINE. WORKED WITH OT AND PT WITH GOOD TOLERATION. FAMILY AT BEDSIDE MOST OF DAY.
[2019-01-07 19:41] LABS: URINE BILIRUBIN NEGATIVE (Negative); URINE BLOOD 1+ (Negative); URINE CLARITY CLEAR; URINE COLOR YELLOW; URINE GLUCOSE-RANDOM* NEGATIVE (Negative); URINE KETONES NEGATIVE (Negative); URINE LEUKOCYTES-REFLEX NEGATIVE (Negative); URINE NITRITE-REFLEX POSITIVE (Negative); URINE PROTEIN (DIPSTICK) NEGATIVE (Negative); URINE UROBILINOGEN 0.2 E.U./dl (0.2-1.0)
[2019-01-07 19:51] LABS: AMORPHOUS PHOSPHATES Moderate /LPF (None Seen); BACTERIA-REFLEX >30 Many /HPF (None Seen); CASTS None Seen /LPF (None Seen); SQUAMOUS 4-10 Moderate /LPF (0-3); URINE RBC 0-2 Rare /HPF (0-2); URINE WBC-REFLEX 0-5 Rare /HPF (0-5)
[2019-01-07 19:55] VITALS: BP 123/59
[2019-01-08 00:15] VITALS: BP 143/78
--- NOTE | 2019-01-08 04:02 | NUR ---
pt resting in bed thru shift, calls out approptly for ass't, prn pain meds given for c/o arm and hip pain, will con't to monitor per ppoc.
[2019-01-08 04:45] VITALS: BP 147/69
[2019-01-08 07:52] VITALS: BP 160/68
--- NOTE | 2019-01-08 11:13 | NUR ---
Initially consulted to see pt upon admit to rehab, however pt had presyncopal event, drop in BP and required transfer to CCU. Wts are stable. ST had assessed and recommended regular, thin liquid diet with no straws and no mixed consistencies. Current diet is soft/fiber restricted. Recommend ST to continue to follow for diet guidelines. Wt stable. Low nutrition risk
[2019-01-08 11:18] VITALS: BP 155/63
--- NOTE | 2019-01-08 14:26 | NUR ---
Pt was admitted to acute from [facility] acute rehab. Workup completed and pt cleared to return to acute rehab today. 5N jeff confirmed rm 513 assigned to pt. Pt's family have been here throughout the am. was here and has dc'd her to return to acute rehab today.
== END 2019-01-08 14:27 | DRG 315 ==
LOC: 2N 13:28 → ENTRNSPT 01-08 14:14 → 2N 01-08 14:27
PROVIDERS: Internal Medicine; ADMIT Internal Medicine
DX: I95.9 Hypotension, unspecified (principal); G81.94 Hemiplegia, unspecified affecting left nondominant side; R55 Syncope and collapse; I35.0 Nonrheumatic aortic (valve) stenosis; I10 Essential (primary) hypertension; Z60.2 Problems related to living alone; R47.1 Dysarthria and anarthria; H40.9 Unspecified glaucoma; E78.5 Hyperlipidemia, unspecified; K21.9 Gastro-esophageal reflux disease without esophagitis; M19.90 Unspecified osteoarthritis, unspecified site; Z88.8 Allergy status to other drugs, medicaments and biological substances; Z90.710 Acquired absence of both cervix and uterus; Z98.49 Cataract extraction status, unspecified eye
CPT/HCPCS: 10081; 10797

== ENCOUNTER 2019-01-08 12:41 | Inpatient (IN) | payer OTHER ==
[~2019-01-08] VITALS: Ht 162.6 cm; Wt 58.3 kg
[2019-01-08 14:48] VITALS: BP 159/66
--- NOTE | 2019-01-08 15:02 | NUR ---
ASSESSEMNT CHARTED - MEDS PER DEC - NO CO'S OF NAUSEA - GIVEN TYLENOL FOR PAIN IN R SHOULDER WITH MOD EFFECT. TOMAS DIET AND FLUIDS. PT HAD CT SCAN AND SHOULDER XRAY COMPLETED THIS AM. PT TRANSFERED TO REHAB UNIT. REPORT CALLED TO EFE - PT TRANSFERED VIA BED TO REHAB WITH SILVIA.
--- NOTE | 2019-01-08 17:11 | NUR ---
PATIENT BROUGHT TO FLOOR AT APPROXIMATELY 1445 IN HOSPITAL BED. REPORT CALLED TO MICHELLE GUEVARA BY MICHELLE DAVIDSON ON CCU. PATIENT A/O X4, ASSESSMENT DONE AND VITALS STABLE. FAMILY AT THE BEDSIDE UPON ADMIT TO THE UNIT. DUE TO PATIENT'S HX OF FALLING OUT OF W/C IN THE PAST FEW DAYS PATIENT HAS NOT BEEN TRANSFERED OUT OF THE BED AT THIS TIME. PATIENT TOILETED WITH BEDPAN. REPORT INDICATED THAT PATIENT HAS BEEN COUGHING FOLLOWING DRINKING THIN LIQUIDS AND PATIENT WAS SUPERVISED BY NURSE DURING MEAL WITH NO INDICATION OF ASPIRATION. PATIENT HAS AREA OF NON-BLANCHING REDNESS ON HER COCCYX, ORDERS TO TURN Q2H, USE CARL MATTRESS, AND BARRIER CREAM TO THE AREA. CONSULT FOR WOUND NURSE ORDERED. FALL PRECAUTIONS IN PLACE AND NURSING WILL CONTINUE TO MONITOR PATIENT.
[2019-01-08 20:41] VITALS: BP 135/56
[2019-01-08 23:16] VITALS: BP 148/46
--- NOTE | 2019-01-09 01:13 | NUR ---
PT ASSESSMENT COMPLETED AND VSS. MEDS GIVEN ORDERED AND WELL TOLERATED. FALL PRECAUTIONS IN PLACE. SUPPORTIVE FAMILY AT BEDSIDE. ASST WITH FREQUENT REPOSITION FOR COMFORT. CONTACTED DR REGARDING PAIN CONTROL AND SLEEP. PER ORDERS GAVE BENADRYL AND PAIN PILL. PT NOW SLEEPING WELL. VSS WITH Q 4 HOUR CHECKS. FREQUENT REPOSITION FOR COMFORT. WILL CONTINUE TO MONITOR FREQUENTLY.
[2019-01-09 04:05] LABS: CALCIUM 9.6 mg/dL (8.5-10.1)
[2019-01-09 04:17] VITALS: BP 153/58
[2019-01-09 04:24] LABS: HEMATOCRIT 39.1 % (37.0-47.0); HEMOGLOBIN 13.2 gm/dL (12.0-15.0); MCH 31.3 pg (26.0-34.0); MCHC 33.8 g/dL (28.0-37.0); MCV 92.7 fL (80.0-100.0); RBC 4.21 mil/uL (4.20-5.00); RDW 13.6 % (10.5-14.5); WBC 13.7 thou/uL (4.0-11.0)
[2019-01-09 07:52] VITALS: BP 164/68
--- NOTE | 2019-01-09 08:02 | NUR ---
chart review, intro to cm, transition of care, and team meeting with pt at bedside. pt able to able her needs know. cm, st, public address systems mechanic assisted pt is getting up to work with st. prior to hospital pt live home, has lots of support from her children (14). no longer drives. family takes her to run errands, and dr appointments. no needing or using any dme prior to hospital. no hh or post acute in past. cm left senior blue book with pt for list choice if needed at dc. will cont following as needed for dc needs.
--- NOTE | 2019-01-09 09:58 | NUR ---
WOUND CONSULT; ASSESSMENT COMPLETED. NO S/S OF SKIN BREAKDOWN. NO NEED TO FOLLOW AT THIS TIME. RECOMMENDATIONS; CONTINUE TO TURN Q2H DISCUSSED WITH RN
--- NOTE | 2019-01-09 12:13 | NUR ---
Nutrition: pt admit to rehab unit S/P CVA. Intake is variable per records and son. 50% breakfast this am. Weights have been stable. No food preferences voiced. ST following for mild dysphagia. Current diet is soft, fiber rest with no straws, no mixed consistencies. Son understands option of ordering meals. Consider low nutrition risk at present.
[2019-01-09 12:14] VITALS: BP 134/71
--- NOTE | 2019-01-09 16:23 | NUR ---
ASSUME PT CARE AT 0700. PATIENT A/O X4. REPORT SLEPT GOOD. REASSESSMENT DONE AND VITALS Q4HRS AND HAS BEEN STABLE, SEE [facility]. FAMILY WITH PT. DR. HOLLEY CAME AND CHECK ON PT. NO NEW ORDER NOTED AT THIS MOMENT. PT HAS MILD RIGHT SHOULDER PAIN. TYLENOL SCHEUDULED GIVEN. DENIES PAIN AT THIS MOMENT. REPORT INDICATED THAT PATIENT HAS BEEN COUGHING FOLLOWING DRINKING THIN LIQUIDS WITH ST. OBTAINED XRAY ORDER. RESULT IS NEGATIVE. MILLY SCALE IS 13 SCORE. NO REDNESS ON HER COCCYX AT THIS MOMENT. ORDERS TO TURN Q2H, USE LOW AIR LOSS BED PUMP MATTRESS. WOUND NURSE CAME AND SEE NO NEED OF TREATMENT AT THIS MOMENT EXCEPT TURNING. OFFERED SUPPORTIVE CARE. MEDS GIVEN, PT HAS BEEN CONT B& B, USES BEDPAN. UP WITH MAX ASSIST WITH TRANSFER AND PIVOT TO WC<> BED. ENCOURAGED PT UP TO DINNING ROOM FOR MEALS. FALL PRECAUTIONS IN PLACE. WILL CONTINUE TO MONITOR.
[2019-01-09 17:36] VITALS: BP 139/71
[2019-01-09 20:09] VITALS: BP 145/73
--- NOTE | 2019-01-10 03:53 | NUR ---
TURNED TO SIDE, HAS BEEN CONTINENT OF URINE AND ASKING FOR BEDPAN. TURNS EASILY TO HER LEFT SIDE. APPRECIATES SMALL SIPS OF WATER WHEN AWAKE FOR TURNS, MEDS, AND VOIDING. PASSIVE RANGE OF MOTION WITH LEFT SHOULDER, ELBOW, AND WRIST DONE LAST NIGHT AT TIME OF 5 MINUTE PAUSE BETWEEN EYEDROPS AND AGAIN THIS MORNING
[2019-01-10 08:15] VITALS: BP 174/63
--- NOTE | 2019-01-10 11:25 | NUR ---
ASSUMED PATIENT CARE AT 0700; PATIENT WITH O.T. AT THAT TIME. NURSE ASSISTED WITH SITTING PATIENT UP AT BEDSIDE. O.T. LAID PATIENT BACK IN BED, SUPINE POSITION. ALSO RECEIVED P.T. AT 11:15, ASSISTED IN W/C TO THERAPY ROOM. CONTINUE TO MONITOR.
[2019-01-10 16:06] VITALS: BP 128/61
[2019-01-10 19:00] VITALS: BP 146/63
--- NOTE | 2019-01-11 02:19 | NUR ---
PT ALERT AND ORIENTED X 4. VOIDING SMALL AMTS YELLOW URINE ON BEDPAN. LEFT SIDED WEAKNESS. C/O PAIN IN RIGHT ARM. SCHEDULED TYLENOL GIVEN AT HS. PT TOOK HS MEDS WITH WATER WITHOUT DIFFICULTY. BED ALARM ON FOR SAFETY. PT APPEARS TO BE SLEEPING ON HOURLY ROUNDS.
[2019-01-11 07:45] VITALS: BP 193/74
[2019-01-11 07:59] VITALS: BP 182/62
[2019-01-11 11:30] VITALS: BP 154/61
--- NOTE | 2019-01-11 16:34 | NUR ---
ASSUMED CARE AT APPROX 0715. PATIENT A/O X4. C/O PAIN IN R SHOULDER AND NECK. PHYSICIAN CONTACTED REGARDING PAIN AND ELEVATED BP. PAIN MEDICATION ORDERS RECEIVED. PHYSICIAN ROUNDED ON PATIENT, MED ORDERS RECEIVED. PATIENT UP IN WC FOR PHYSICAL THERAPY, STAYED UP THROUGH LUNCH, REQUESTED AFTER APPROX 45 MIN TO REST IN BED. ASSITED TO BED X2 PERSONS. TURNED Q2, LEGS AND LEFT ARM ELEVATED ON PILLOW. FALL PRECAUTIONS IN PLACE. PATIENT CALLS FOR BEDPAN AND FOR ASSISTANCE APPROPRIATELY. WILL CONTINUE TO MONITOR.
[2019-01-11 20:01] VITALS: BP 165/89
[2019-01-11 23:38] VITALS: BP 135/58
--- NOTE | 2019-01-12 02:22 | NUR ---
PT ASSESSMENT COMPLETED AND VSS. BP SLIGHTLY ELEVATED AND REPORTED TO PRIMARY DR. MEDS GIVEN ORDERED AND WELL TOLERATED. PAIN MEDICATION HELPFUL FOR SHOULDER/BACK/AND KNEE PAIN. PAIN NUMBER PRIOR TO PAIN MEDICATION LEVEL 6. AFTER PAIN MEDICATION PT DENIES PAIN. FALL PRECAUTIONS IN PLACE. TURNED Q 2 HOURS USING PILLOWS FOR COMFORT AND FLOATING HEELS. VOIDING STRONG SMELLING URINE. SLEEPING WELL. WILL CONTINUE TO MONITOR FREQUENTLY.
[2019-01-12 07:45] VITALS: BP 144/61
--- NOTE | 2019-01-12 18:37 | NUR ---
ASSUME PT CARE AT 0700. PATIENT A/O X4. REPORT SLEPT BETTER LAST NIGHT. PT HAD NAUSEA AND VOMITING BEFORE BREAKFAST. GAVE PRN ZOFRAN. DR. HOLLEY AWARED AND STOPPED TRAZADONE. C/O DYSCOMFORT STOMACH. PRN MAALOX GIVEN. SHE SAID IT HELPED. REASSESSMENT DONE AND VSS. PT C/O FEELS TIRED TODAY BUT ABLE TO GET UP AND PARTICIPATED WITH THERAPY. PT NOTED BRUISES ON LEFT KNEE, LACERATION ON LEFT ANKLE AND DISCOLORATION ON SECOND TOE ON LEFT FEET. XRAYS ON LEFT FOOT AND ANKLE, NO FRACTURE. DR. HOLLEY AWARED. UA CULTURE RESULTS NOTED. PT STARTS ON ZOSYN IV ABT TODAY. IV STARTED ON RIGHT FOREARM. NO ADVERSE REACTION NOTED. HEELS BOGGY, HEAL PROTECTOR ORDERED AND APPLIED. RIGHT SHOULDER PAIN. TYLENOL SCHEUDULED GIVEN. DENIES PAIN AT THIS MOMENT. SON AT BEDSIDE. WILL GIVE REPORT TO NIGHT NURSE TO CONTINUE TO MONITOR. REPORT INDICATED THAT PATIENT HAS BEEN COUGHING FOLLOWING DRINKING THIN LIQUIDS WITH ST. OBTAINED XRAY ORDER. RESULT IS NEGATIVE. MILLY SCALE IS 14SCORE. NO REDNESS ON HER COCCYX AT THIS MOMENT. ORDERS TO TURN Q2H, USE LOW AIR LOSS BED PUMP MATTRESS. OFFERED SUPPORTIVE CARE. MEDS GIVEN, PT HAS BEEN CONT BLADDER, CALL FOR HELP APPROPRIATELY AND USES BEDPAN. UP WITH MAX ASSIST WITH TRANSFER AND PIVOT TO WC<> BED. ENCOURAGED PT UP TO DINNING ROOM FOR MEALS. FALL PRECAUTIONS IN PLACE. WILL GIVE REPORT TO NIGHT NURSE TO CONTINUE TO MONITOR.
[2019-01-12 19:45] VITALS: BP 173/81
[2019-01-13 00:30] VITALS: BP 157/85
--- NOTE | 2019-01-13 01:01 | NUR ---
PT ASSESSMENT COMPLETED AND VSS. MEDS GIVEN ORDERED AND WELL TOLERATED. FALL PRECAUTIONS IN PLACE. VOIDING MODERATE AMOUNT OF STRONG SMELLING YELLOW URINE IN BEDPAN. TURNED Q 2 HOURS FOR COMFORT USING PILLOWS. PT REFUSED RACHEL FOOT BOOTS AND FAMILY AWARE. PILLOWS USED TO FLOAT HEELS. C/O LEVEL 7 PAIN AND ITCHING. TYLENOL AND BENADRYL GIVEN. PT DID SLEEP FOR A SHORT TIME AFTER DOSE. AGAIN THIS MORNING PT VERY RESTLESS AND C/O PAIN LEVEL 7 PAIN. VSS AT MIDNIGHT. CONTACTED DR AND PER ORDERS GAVE ONETIME DOSE OF PERCOCET. PT SLEEPING. WILL CONTINUE TO MONITOR FREQUENTLY.
[2019-01-13 04:15] LABS: CALCIUM 8.9 mg/dL (8.5-10.1); CREATININE 0.8 mg/dL (0.6-1.0); DIRECT BILIRUBIN 0.2 mg/dL (<0.1-0.3); POTASSIUM 4.1 mmol/L (3.5-5.1); TOTAL BILIRUBIN 0.9 mg/dL (<0.1-1.0); TOTAL PROTEIN 5.7 g/dL (6.4-8.2)
[2019-01-13 04:43] LABS: HEMATOCRIT 37.9 % (37.0-47.0); HEMOGLOBIN 12.7 gm/dL (12.0-15.0); MCH 31.3 pg (26.0-34.0); MCHC 33.6 g/dL (28.0-37.0); MCV 93.3 fL (80.0-100.0); RBC 4.06 mil/uL (4.20-5.00); RDW 13.8 % (10.5-14.5); WBC 14.5 thou/uL (4.0-11.0)
[2019-01-13 05:45] VITALS: BP 167/82
--- NOTE | 2019-01-13 11:01 | NUR ---
ASSUME PT CARE AT 0700. PATIENT A/O X4. REPORT DIDN'T SLEPT WELL LAST NIGHT UNTIL SHE TOOK HYDROCODONE. FEELS TIRED THIS AM BUT ABLE TO GET UP TO DINNING ROOM, ATE 50% BREAKFAST AND ST DID VITAL STEM WITH PT. CONTINUE TO BE ON ZOSYN IV ABT WITHOUT ADVERSE REACTION NOTED. RIGHT FOREARM IV S.L, PATENT AND INTACT. HEELS BOGGY, ENCOURAGED PT TO USE HEEL PROTECTOR. RIGHT SHOULDER PAIN. TYLENOL SCHEUDULED GIVEN. REPORT PAIN IS BETTER NOW. OFFERED SUPPORTIVE CARE AND ENCOURAGEMENT. PT PARTICIPATES WITH THERAPY DESPITE OF HER TIRENESS. NO REDNESS ON HER COCCYX AT THIS MOMENT BUT CONTINUE TO TURN Q2H, USE LOW AIR LOSS BED PUMP MATTRESS. OFFERED SUPPORTIVE CARE. MEDS GIVEN, PT HAS BEEN CONT BLADDER, CALL FOR HELP APPROPRIATELY AND USES BEDPAN. UP WITH MAX ASSIST WITH TRANSFER AND PIVOT TO WC<> BED. ENCOURAGED PT UP TO DINNING ROOM FOR MEALS. MEDS GIVEN, LABS REVIEWED. REASSESSEMENT PER SHIFT. VSS ON RA. FALL PRECAUTIONS IN PLACE. USES CALL LIGHT APPROPRIATELY. CHECK FRENTQUENLY FOR NEEDS AND SAFETY. WILL CONTINUE TO MONITOR.
--- NOTE | 2019-01-13 13:59 | NUR ---
team meeting, recommendation: re team with possible dc .
[2019-01-13 20:00] VITALS: BP 149/73
--- NOTE | 2019-01-14 04:47 | NUR ---
USING BEDPAN FREQUENTLY. TURNED TO RIGHT SIDE WITH MORE ASSIST NEEDED THAN TURNING TO HER LEFT. LIDODERM PATCH TO RIGHT SUBCLAVIAN CHEST AND RIGHT LOWER TRICEP. HEATING PAD OBTAINED AND KEPT IN PLACE ON HER RIGHT CHEST AND SHOULDER. TOLERATING SMALL PILLS WITH WATER AND APPRECIATES OXY IR TO HELP SLEEP AND BENADRYL TO CONTAIN ITCHING. FEET OFFLOADED WITH PILLOW UNDER CALVES. IV IN LEFT FOREARM FOR IV ANTIBIOTICS
[2019-01-14 08:00] VITALS: BP 153/78
--- NOTE | 2019-01-14 09:55 | NUR ---
ASSUMED CARE AT 0700. PATIENT IS ALERT AND ORIENTED X4 AND FORGETFUL. PATIENT HAS LEFT SIDEDWEAKNESS. PATIENT C/O RIGHT SHOULDER PAIN. AQUA K PAD TO RIGHT SHOULDER. UP WITH MAX ASSIST OF 2 STaff TO W/C AND OUT TO DINING ROOM FOR MEALS. FALL AND SAFETY PROTOCOLS IN PLACE. PATIENT HAS S.L. IN HER RIGHT FORARM. SITE WITHOUT REDNESS OR SWELLING. PAIN above. CONTINUE TO PROGESS SLOWLY TOWARDS D/C GOALS. WILL CONTINUE TO MONITER
--- NOTE | 2019-01-14 15:26 | NUR ---
Patient participated in community reintegration on 01/14/19 with SPEECH THERAPY. Refer to documentation by SPEECH THERAPIST.
[2019-01-14 20:14] VITALS: BP 143/75
--- NOTE | 2019-01-15 07:15 | NUR ---
Assumed care at 1845. Pt resting in bed. She voided multiple times at night with no significant residual. Denies pain. Turn Q2. No identified needs at the moment. Will continue to monitor.
--- NOTE | 2019-01-15 07:25 | NUR ---
Pt PARTICIPATED IN COMMUNITY REINTEGRATION ON 01/14/19 WITH SPEECH THERAPY. PLEASE REFER TO ST DOCUMENTATION
[2019-01-15 07:35] VITALS: BP 153/85
--- NOTE | 2019-01-15 11:34 | NUR ---
ASSUMED CARE OF PT AT 0715. PT IS A&OX4. IS ON ROOM AIR. IS STABLE. IS UP WITH 1-2 MAX ASSIST, STAND PIVOT TO BSC & W/C. FALL PRECAUTIONS & HOURLY ROUNDING MAINTAINED. PT HAS LEFT SIDED WEAKNESS & TENDS TO LEAN TO THE LEFT WITH LEFT SIDED NEGLECT. CONSTANT REMINIDERS TO SITUP TALL & TO GRAB HOLD OF LEFT ARM WHEN MOVING. REPORTS PAIN IN RIGHT SHOULDER THAT IS BEING MANAGED WITH PAIN MEDS & HEATING PAD. REMAINS ON CONTACT ISOLATION PRECAUTIONS. LABS & VITALS REVIEWED. Q2H TURNS, PT IS ABLE TO HELP SOME. PT IS TO BE BLADDER SCANNED POST VOIDS. 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 WILL CONTINUE TO MONITOR.
[2019-01-15 19:29] VITALS: BP 147/72
--- NOTE | 2019-01-16 05:30 | NUR ---
BLADDER SCAN AFTER EACH VOID, STRAIGHT CATH OFFERED TO PATIENT AFTER BVIs OF 432 AND 398. DECLINED BECAUSE SHE IS NOT UNCOMFORTABLE, NOR IS SHE ANNOYED BY THE FREQUENCY OF USING THE BEDPAN. TIME GAP OF 5 HOURS, 90 MINUTES, AND 2 HOURS ARE NOT AN ANNOYING FREQUENCY TO HER AND SHE HAS BEEN ABLE TO GET RIGHT BACK TO SLEEP. PAIN IS UNDER CONTROL AFTER ASKING FOR OXY IR AND BENADRYL AT HS TO HELP HER GET TO SLEEP. DRINKING ROOM TEMP WATER WELL FROM [employer]. REPOSITIONED AFTER EACH BEDPAN USE AT 1900,1930,2030,0130,0300,AND 0500
[2019-01-16 09:03] VITALS: BP 168/71
--- NOTE | 2019-01-16 10:48 | NUR ---
ASSUMED CARE OF PT AT 0715. C/O NAUSESA THIS AM. ZOFRAN PRN GIVEN BEFORE OT SESSION. UP TO DINNING ROOM FOR BREAKFAST, ATE 25% HER MEALS. A&OX4 ABLE TO VOICE HER NEEDS. C/O SOB, SAT 98% IS ON ROOM AIR. VSS STABLE. IS UP WITH 1-2 MAX ASSIST, STAND PIVOT TO BSC & W/C. FALL PRECAUTIONS & HOURLY ROUNDING MAINTAINED. PT HAS LEFT SIDED WEAKNESS & TENDS TO LEAN TO THE LEFT WITH LEFT SIDED NEGLECT. PARTICIPATES WITH TRANFERING. CONSTANT REMINIDERS TO SITUP TALL & TO GRAB HOLD OF LEFT ARM WHEN MOVING. REPORTS PAIN IN RIGHT SHOULDER THAT IS BEING MANAGED WITH PAIN MEDS & HEATING PAD. LAST PRN PAIN GIVEN AT 0700. REMAINS ON CONTACT ISOLATION PRECAUTIONS. LABS & VITALS REVIEWED. REASSESSMENT PER CHART. CRACKLES ON BASES. NOTIFIED DR. HOLLEY OBTAINED ORDER FOR CHEST XRAY. Q2H TURNS, PT IS ABLE TO HELP SOME. PT IS TO BE BLADDER SCANNED POST VOIDS. HAS MODERATE SOFT BM THIS AM. PT REFUSED TO GET UP WITH PHYSICAL THERAPIST AT FIRST, BUT SHE GOT UP AND WORKING WITH THERAPIST NOW. WILL CONTINUE TO MONITOR.
[2019-01-16 12:44] LABS: HEMATOCRIT 37.1 % (37.0-47.0); HEMOGLOBIN 12.4 gm/dL (12.0-15.0); MCH 31.3 pg (26.0-34.0); MCHC 33.5 g/dL (28.0-37.0); MCV 93.5 fL (80.0-100.0); RBC 3.97 mil/uL (4.20-5.00); RDW 13.7 % (10.5-14.5); WBC 14.7 thou/uL (4.0-11.0)
[2019-01-16 13:03] LABS: CREATININE 0.9 mg/dL (0.6-1.0); POTASSIUM 3.6 mmol/L (3.5-5.1); TOTAL BILIRUBIN 0.8 mg/dL (<0.1-1.0); TOTAL PROTEIN 5.7 g/dL (6.4-8.2)
[2019-01-16 20:00] VITALS: BP 178/80
--- NOTE | 2019-01-17 03:58 | NUR ---
HAD TYLENOL AND 2 DOSES OF OXY IR LAST NIGHT WITH HEATING PAD, HAD TROUBLE FALLING ASLEEP AND WAS UP UNTIL 2245. AFTER FINALLY FALLING ASLEEP, SHE WOKE AT 0300 TO VOID 175 WITH A BVI OF 204, TYLENOL GIVEN FOR SHOULDER PAIN AND NOW SHE IS SLEEPING AGAIN. PROM TO LEFT ELBOW, WRIST, AND FINGERS; CAN MOVE HER FINGERS EVER SO SLIGHTLY.
[2019-01-17 09:16] VITALS: BP 204/93
--- NOTE | 2019-01-17 10:08 | NUR ---
ASSUMED CARE AT 0700. PATIENT IS ALERT AND ORIENTED X4. PATIENT HAS LEFT SIDED FLACCIDITY. UP IN THE W/C FOR MEALS. LUNGS ARE CLEAR AND DEMINISHED. 02 AT 2L PER N/C FOR SOB THIS A.M. LIDOCAIN PATCH REMOVED FROM RIGHT SHOULDER. PATIENT VOIDED ADEQUATE AMOUNTS OF DAVID COLORED URINE ON BEDPAN. PATIENT HAS S.L. IN HER RIGHT FORARM. FALL AND SAFETY PROTOCOLS IN PLACE. C/O RIGHT SHOULDER PAIN INTERMITTENTLY. PATIENT RECIEVED TYLENOL FOR THIS C/O. CONTINUES TO PROGRESS SLOWLY TOWARDS D/C GOAL. WILL CONTINUE TO MONITER. FAMILY HERE TO VISIT.
[2019-01-17 12:14] LABS: BE(vivo) -0.3 mmol/L (-2 to +3); HCO3 23.6 mmol/L (22.0-26.0); PCO2 36.2 mmHg (35.0-45.0); PO2 80.5 mmHg (80.0-100.0); pH 7.432 (7.360-7.450); sO2 96.3 % (92.0-98.0)
--- NOTE | 2019-01-17 12:56 | NUR ---
ABG'S CALLED TO DR. BULLOCK. PH 7.42, PCO2 36.2, PO2 80.5 , HC03 23.6, LACTATE 2.41 . NO NEW ORDERS. DR. NATARAJAN IS CIGARETTE TIPPER AND HE WILL TEXT HIM THE RESULTS.
[2019-01-17 19:43] VITALS: BP 183/86
--- NOTE | 2019-01-18 05:33 | NUR ---
Assumed care of pt at 1915. Pt alert and oriented x4. Pt's family in room through the evening. c/o pain in right shoulder and headache, relieved with po Oxycodone, repeated x1. Repositioned q 2 hrs. Has voided q 1-2 hrs, incont and on bedpain. Urine residuals as noted. Denies pain or burning with urination. c/o nausea with small amount of bile-colored emesis x1, relieved with po Zofran. Has appeared to be sleeping between need to void. Checked on hourly rounds. Bed alarm on.
[2019-01-18 07:53] VITALS: BP 172/81
--- NOTE | 2019-01-18 11:34 | NUR ---
ASSUMED CARE OF PT AT 0715. PT HAS BEEN ON 02 1.5-2 L INTERMITTENTLY FOR SOA. O2 SAT 99%-100% ON ROOM AIR. PT IS EXPERIENCING INCREASED WEAKNESS. DR. NATARAJAN CALLED. THIS NURSE & PHYSICAL THERAPIST ATTEMPTED TO GET PT UP IN CHAIR. PT WAS WEAK & STATED "I JUST FEEL BAD". PT DENIED DIZZINESS. PT REPORTED TINGLING IN RIGHT HAND THAT IS "OFF & ON FOR A WHILE". PT ALSO REPORTED A RIGHT EAR ACHE & A HEADACHE. PT HAS TYLENOL THIS AM. PT IS UP WITH MAX ASSIST OF 1-2, GB, STAND PIVOT TO W/C. FALL PRECAUTIONS & HOURLY ROUNDING CONTINUED THIS SHIFT. LABS & VITALS REVIEWED. PT IS BLADDER SCANNED POST VOIDS. PT HAS URINARY FREQUENCY. PT IS CURRENTLY IN BED. IS TURNED Q2H, BUT IS MOVING AROUND MORE FREQUENTLY, & IS ABLE TO HELP SOME WITH TURNS. PT IS CURRENTLY IN BED. CALL LIGHT WITHIN REACH. WILL CONTINUE TO MONITOR. PT REFUSED BREAKFAST. ATE SOME YOGURT.
--- NOTE | 2019-01-18 17:43 | HC ---
[facility] [place] [address] CONSULTATION Name: COTY LUZ Room #: 513-P [facility] M.R.#: [id number] Admission: 01/08/19 ������������������ Attend Phys: Tremayne Tsang MD Discharge: ������������������ Date of : 33 Report #: [id number] THIS REPORT FOR: //name// CC: Tremayne Luz DATE OF SERVICE: 01/10/2019 Neurobehavioral Status Exam ATTENDING PHYSICIAN: Tremayne Tsang MD DIRECTOR OF ONCOLOGY: Lamberto Maya, PhD CLINICAL PRESENTATION: The patient is an 83-year-old white female, admitted to the [facility] for comprehensive inpatient rehabilitation program to improve functional mobility, activities of daily living and self-care and mental status secondary to a right basal ganglia intracranial hemorrhage. She presents with a left hemiparesis, dysarthria, and hypertension. A complete description of her medical condition and history along with medications can be found in her medical record. Neuropsychological consultation was requested to provide assistance in the assessment of cognitive and emotional status and to provide recommendations and services. Prior to this most recent admission, she was living independently in her own home. The patient has 14 children. 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 Her son is Royce Sukh. There is no reported history of treatment for depression or anxiety. Her premorbid functioning is described as very high. She was living alone and independent with instrumental activities of daily living including driving. TECHNIQUES UTILIZED: Clinical interview, review of medical records, staff consultation and behavioral observation, Mini-Mental Status Exam 2 standard version, and verbal fluency assessment (category) and brief abstract reasoning test. EXAMINATION FINDINGS: The patient was alert and cooperative with the assessment. There is no evidence of aphasia. Her thoughts are logical and goal oriented. There is no evidence of thought disorder. She does not report auditory or visual hallucinations. She is aware of the reason for her hospitalization. There does not appear to be period of amnesia surrounding this her stroke. She describes her appetite and sleep as improving. Her energy level appears very fatigued. She is drowsy and required encouragement to maintain alertness. The therapy staff describe her energy level as very low and requring much effort for her to maintain alertness. [facility] [address] [place] [address] CONSULTATION Name: COTY LUZ Room #: 513-P [facility].#: [id number] Admission: 01/08/19 ������������������ Attend Phys: Tremayne Tsang MD Discharge: ������������������ Date of : 34 Report #: [id number] Additionally, she describes tiredness and fatigue as a primary complaint. Her performance on the MMSE 2 brief version was 08/29. She was 3/3 for initial registration, 3/5 for orientation to time, 4/[address] and 1/3 for immediate recall of 3 items after a brief time delay and distraction. Her performance improved on the standard version of the MMSE 2 to a raw score of 24, which is a T score 36 and percentile rank of 8. She was 5/5 for serial 7s, 2/2 for naming, 1/1 for repetition, 3/3 for auditory comprehension. She can read and follow single command. She is able to write a sentence. She had some difficulty with copying tasks, suggesting decreased visuospatial construction. Category fluency was in the borderline range with a T score of 34 and percentile rank of 5. She was 8/8 for auditory and verbal reasoning, suggesting functioning is within normal limits. The patient is presenting with neurocognitive deficits secondary to the CVA. A hemorrhage most often results in a very good recovery. However, neurocognitive deficits will likely persist, left neglect, tendency toward impulsivity and increased time for problem solving may need compensatory strateiges. 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 Continued speech therapy to assist with cognitive stimulation and utilization of compensatory strategies. The patient may need assistance in recognizing symptoms of diminished neglect, which along with impulsivity can lead to potential falls. Continued support and reassurance in regard to the good expectation that often follows hemorrhagic strokes versus ischemic strokes. She will likely require increased time for rest as she gradually begins to recover. Increased assistance will likely be necessary to assist with compensation and encouragement to ask for help when necessary will also further provide recovery. Thank you very much for allowing me to provide the consultation on this patient. ��������������������������������������������� <ELECTRONICALLY SIGNED> ���������������������������������������� By: Lmaberto Maya, PhD ��������������������������������������������� 01/18/19 [id number] Lamberto Maya, PhD /nt
--- NOTE | 2019-01-18 18:02 | NUR ---
PT HAD ONE BLADDER SCAN TODAY OVER 600ML. THE PT REFUSED TO BE STRAIGHT CATH & INSISTED ON USING THE BEDPAN TO EMPTY HER PLADDER. PT HAS HAD 2 INCONT EPISODES & HAS FREQUENTLY USED THE BEDPAN AT LEAST 2X WHILE THIS NURSE & THE AID IS IN THE ROOM. THIS NURSE BLADDER SCANNED PT & PT HAD 48 ML IN AT APPROX 1800. PT HAS HAD BED BATH TODAY BY THIS NURSE ALSO. WILL CONTINUE TO MONITOR.
[2019-01-18 19:20] VITALS: BP 175/86
--- NOTE | 2019-01-19 03:05 | NUR ---
PAIN MEDS AT HS AND HEATING PAD TO RIGHT SHOULDER TO ALLOW SLEEP. HAS USED THE BEDPAN 5 TIMES THIS SHIFT PLUS SHE WAS INCONTINENT. BLADDER SCAN AFTER INCONTINENT EPISODE SHOWED 147 CC. PATIENT AND FAMILY INFORMED OF ADDITIONAL DOSE OF NORVASC GIVEN LAST EVENING AND THAT SHE WILL GET INCREASED DOSE OF 5 RATHER THAN 2.5 THIS MORNING AFTER BLOOD PRESSURE CHECKED. DRINGING WATER 30-60 CC AT A TIME USING HER ESPRESSO CUP. ABLE TO MOVE LEFT FINGERS SMALL AMOUNT. REPOSITIONING PATIENT SLIGHTLY AFTER EACH BEDPAN USE
[2019-01-19 06:33] VITALS: BP 151/75
[2019-01-19 11:01] LABS: ABSOLUTE NEUTROPHILS 10.8 thou/uL (1.4-8.2); BASOPHILS 0.6 % (0.0-2.0); EOSINOPHILS 0.4 % (0.0-3.0); HEMATOCRIT 41.1 % (37.0-47.0); LYMPHOCYTES 11.2 % (24.0-44.0); MCH 31.6 pg (26.0-34.0); MCHC 34.1 g/dL (28.0-37.0); MCV 92.9 fL (80.0-100.0); MONOCYTES 7.3 % (1.0-8.0); PLATELET COUNT 374 thou/uL (150-400); POLYS 80.5 % (36.0-66.0); RBC 4.43 mil/uL (4.20-5.00); WBC 13.4 thou/uL (4.0-11.0)
[2019-01-19 11:17] LABS: ALBUMIN 3.3 g/dL (3.4-5.0); CALCIUM 9.5 mg/dL (8.5-10.1); CREATININE 0.9 mg/dL (0.6-1.0); POTASSIUM 3.7 mmol/L (3.5-5.1); TOTAL BILIRUBIN 1.4 mg/dL (<0.1-1.0); TOTAL PROTEIN 6.4 g/dL (6.4-8.2)
--- NOTE | 2019-01-19 11:20 | NUR ---
ASSUMED CARE OF PT AT 0715. OT GAVE BED BATH THIS AM. UP TO DINNING ROOM FOR BREAKFAST, ATE 25% BREAKFAST. A&OX4 ABLE TO VOICE HER NEEDS. C/O SOB, SAT 98% IS ON ROOM AIR. VSS STABLE. PT C/O RIGHT EAR DISCOMFORT. DR. BULLOCK WAS HERE TO SEE PT AND GAVE ORDER FOR ABT EAR DROPS, UA, CHEST XRAY. UA OBTAINED AND SENT TO LAB. IS UP WITH 1-2 MAX ASSIST, STAND PIVOT TO BSC & W/C. FALL PRECAUTIONS & HOURLY ROUNDING MAINTAINED. PT HAS LEFT SIDED WEAKNESS & TENDS TO LEAN TO THE LEFT WITH LEFT SIDED NEGLECT. PARTICIPATES WITH TRANFERING. CONSTANT REMINIDERS TO SITUP TALL & TO GRAB HOLD OF LEFT ARM WHEN MOVING. REPORTS PAIN IN RIGHT SHOULDER THIS AM. PRN TYLENOL GIVEN WITH MORNING MEDS. RATES PAIN IS BETTER NOW. C/O NAUSEA BEFORE PT. PRN ZOFRAN GIVEN NOW. REASSESSMENT PER CHART. LAST BM WAS 2 DAYS AGO. MIRALAX GAVE LAST NIGHT. WILL CONTINUE TO MONITOR BM. REMAINS ON CONTACT ISOLATION PRECAUTIONS. LABS & VITALS REVIEWED. OFFERED SUPPORTIVE CARE AND ENCOURAGEMENT. PT STILL C/O TIRED AND DIDN'T WANT TO PARTICIPATE WITH THERAPY D/T TIRED, BUT SHE TRIES WITH ENCOURGEMENT. WILL CONTINUE TO MONITOR. PT IS UP WITH PHYSICAL THERAPIST AT THIS MOMENT.
[2019-01-19 12:50] LABS: URINE BILIRUBIN NEGATIVE (Negative); URINE BLOOD 3+ (Negative); URINE CLARITY CLEAR; URINE COLOR YELLOW; URINE GLUCOSE-RANDOM* NEGATIVE (Negative); URINE KETONES NEGATIVE (Negative); URINE PROTEIN (DIPSTICK) TRACE (Negative); URINE SPECIFIC GRAVITY >= 1.030 (1.005-1.035); URINE UROBILINOGEN 0.2 E.U./dl (0.2-1.0)
[2019-01-19 12:51] LABS: URINE LEUKOCYTES-REFLEX 1+ (Negative); URINE NITRITE-REFLEX POSITIVE (Negative)
[2019-01-19 12:59] LABS: CASTS None Seen /LPF (None Seen); SQUAMOUS 4-10 Moderate /LPF (0-3)
[2019-01-19 13:00] LABS: BACTERIA-REFLEX >30 Many /HPF (None Seen); URINE RBC 0-2 Rare /HPF (0-2)
[2019-01-19 13:01] LABS: CALCIUM OXALATE 4-10 Moderate /LPF (None Seen)
--- NOTE | 2019-01-19 13:05 | NUR ---
Nutrition followup: pt continues on soft diet, intake generally <50% of meals. Pt voices she is not hungry at lunch today. Attempted to obtain food preferences and pt unable to provide. Did state she no longer wanted tomato soup due to GERD. SCHOOL SPEECH THERAPIST conducting vital stim. Family brought in a premier protein drink for pt to try, is in her room. Discussed use of ensure due to need for both increased calories and protein. Pt agrees to try, will offer BID. No new weight since 01/12. RECommend obtain new weight. RD to follow.
--- NOTE | 2019-01-19 14:09 | NUR ---
cm visited with son marvin this am, rt dcp ([place], [place], [place], [place], ability donaldo program). thank you for information, will discuss as family after recommendation from tomorrow team meeting. going to look at ability donaldo program also"/marvin. will cont following as needed for dc needs. referred him to unite sales representative supervisor rt insurance question on medicare los day. referred to last team meeting of 19-23 days.
[2019-01-19 20:53] VITALS: BP 147/70
--- NOTE | 2019-01-20 01:35 | NUR ---
assumed care at approx 1900 evening 01/19. pt lying in bed with head of bed elevated at change of shift with several family members at bedside. pt alert and oriented x4, pleasant and cooperative. pt stated she had therapy today and she is very tired from that. pt given hs meds with small amt water tolerating well. pt assisted with bedpan tonight voiding small, frequent amts. pt appears to be sleeping soundly with hourly rounding. pt also turns herself in bed from side to side heike moving well when on bedpan. call light in reach and bed alarm on. will continue to monitor.
[2019-01-20 05:34] VITALS: BP 154/64
[2019-01-20 08:10] VITALS: BP 137/80
--- NOTE | 2019-01-20 11:52 | H ---
[facility] [place] [address] HISTORY AND PHYSICAL Name: COTY LUZ Room #: 513-P ADM IN M.R.#: [id number] Admission: 01/08/19 ������������������ Attend Phys: Tremayne Tsang MD Discharge: ������������������ Date of : 34 Report #: [id number] THIS REPORT FOR: //name// CC: Tremayne Luz DATE OF SERVICE: 01/08/2019 HISTORY AND PHYSICAL/POST-ADMISSION PHYSICIAN EVALUATION HISTORY OF PRESENT ILLNESS: The patient is re-admitted now for acute in-hospital inpatient rehabilitation. Please see the full admission note dictation from 01/06/2019. See my discharge dictation as well as the consult note dictation from our group yesterday. The patient had a right basal ganglia intracranial hemorrhage with significant left hemiparesis, had a hypotensive episode, and EKG showed some concerning changes with question of IL, although the patient has a right bundle-branch block. She was transferred down to [facility]. Serial cardiac enzymes were negative. She had no further episodes of syncope or presyncope after her antihypertensive meds were held. Echocardiogram revealed moderate aortic valve stenosis. She was felt to be ready for re-admission to the acute in-hospital inpatient rehabilitation hagen. PAST MEDICAL HISTORY: All per the prior dictations. ALLERGIES: All per the prior dictations. SOCIAL HISTORY, HABITS: All per the prior dictations. MEDICATIONS: Please see the full medication listing. This includes vitamins, herbals, and supplements per report. REVIEW OF SYSTEMS: She is rather groggy, but no specific complaints of chest pain, shortness of breath, abdominal discomfort. She has had some problems with some mild headache with a CT of the head yesterday showing acute right basal ganglia hemorrhage with mild mass effect as expected, but no other changes. She has had some soreness of her right hip and pelvic area that is not new and has had this previously x-rayed, which was negative. PHYSICAL EXAMINATION: GENERAL: She is sleepy, pleasant, follows basic commands. She is a small statured, thin white female. VITAL SIGNS: Temperature 98.4, pulse 81, respirations 16, blood pressure 153/58. She has some mild dysarthria. No obvious significant facial weakness. CHEST: Sounded clear to auscultation. CARDIOVASCULAR: Regular rate and rhythm. ABDOMEN: Bowel sounds positive. Nontender. [facility] [address] [place] [address] HISTORY AND PHYSICAL Name: COTY LUZ Room #: 513-P [facility] IN M.R.#: [id number] Admission: 01/08/19 ������������������ Attend Phys: Tremayne Tsang MD Discharge: ������������������ Date of : 34 Report #: [id number] GENITOURINARY AND RECTAL: Deferred. 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 She may have some gross extension of the left lower extremity. No focal calf swelling. No distal lower extremity edema. I did not assess her sensation this morning. ASSESSMENT: 1. Right basal ganglia intracranial hemorrhage. 2. Left hemiparesis. 3. Presyncopal/syncopal episode. 4. Episode of hypotension with adjustment in medications. She ruled out for myocardial infarction. 5. Dysarthria. 6. History of hypertension. 7. Peripheral neuropathy. 8. Gastroesophageal reflux. 9. Glaucoma. 10. Hyperlipidemia. PLAN: The patient is readmitted for acute in-hospital inpatient rehabilitation. From a post-admission physician evaluation perspective, there are no relevant changes since the pre-admission screening. Please see the consult dictation from yesterday. Please see the review of prior and current medical and functional conditions and comorbidities. These are available with her prior dictations. As far as risk of complications, she does have the multiple medical comorbidities as noted above. Goal is to maximize her functional independence so she can hopefully return to the home setting with increased family support. The overall plan of care is based on the preadmission screen, post admission physician evaluation and information garnered from therapy evaluations. She is at a lower functional level. She will be involved in the interdisciplinary acute inpatient rehabilitation program with goal of maximizing her functional independence. We can hope that she can hopefully return back to her prior living situation. Measurable functional goals would be at this point for her to initially become as independent as possible at the wheelchair level and then will have to progress from there. Hopefully, she will get some further volitional return. Prognosis is reasonably good. Estimated length of stay, we would anticipate a fairly long rehabilitation stay as far as her lower functional level, probably at least 3 weeks. We will need to follow along regarding her therapy progress, meeting Medicare criteria, etc. Potential barriers would include her multiple medical comorbidities and decreased [facility] [address] [place] [address] HISTORY AND PHYSICAL Name: COTY LUZ Room #: 513-P ADM IN M.R.#: [id number] Admission: 01/08/19 ������������������ Attend Phys: Tremayne Tsang MD Discharge: ������������������ Date of : 34 Report #: [id number] functional status. Expected therapy bu discipline is PT,OT and ST one hour per day each 5days/wk. May need to consider a low endurance program pending tolerance. ��������������������������������������������� <ELECTRONICALLY SIGNED> ���������������������������������������� By: Tremayne Tsang MD ��������������������������������������������� 01/20/19 1152 0800 0825 Tremayne Tsang MD /nt
--- NOTE | 2019-01-20 12:39 | NUR ---
team meeting, recommendation re team, with possible 02/03/19 dc. will cont following as needed for dc needs.
--- NOTE | 2019-01-20 16:10 | NUR ---
ASSUMED CARE OF PT AT 0715. UP TO DINNING ROOM FOR BREAKFAST, ATE 25% BREAKFAST & BOWEL OF CREAM OF CHICKEN SOUP FOR LUNCH. A&OX4 ABLE TO VOICE HER NEEDS. C/O SOB, ON 1L OF OXGYGEN SAT 98% VS STABLE. REPORT RIGHT EAR HEARS BETTER, DENIES PAIN ON R EAR. PT IS UP WITH 1-2 MAX ASSIST, STAND PIVOT TO BSC & W/C. FALL PRECAUTIONS & HOURLY ROUNDING MAINTAINED. PT HAS LEFT SIDED WEAKNESS & TENDS TO LEAN TO THE LEFT WITH LEFT SIDED NEGLECT. HAS NEW ORDER FOR E STIM ON LEFT LEG. PARTICIPATES WITH TRANFERING. CONSTANT REMINIDERS TO SITUP TALL & TO GRAB HOLD OF LEFT ARM WHEN MOVING. REASSESSMENT PER CHART. HAD GOOD BM THIS AM. REMAINS ON CONTACT ISOLATION PRECAUTIONS. OFFERED SUPPORTIVE CARE AND ENCOURAGEMENT. FALL PRECAUTION IN PLACE. CALL LIGHT WITHIN REACH. PT CALLS APPROPRIATE FOR BEDPAIN. CONT BLADDER. BLADDER SCAN IS 392, WILL CONTINUE TO MONITOR. RESTING IN BED. FAMILY AT BEDSIDE.
[2019-01-20 20:15] VITALS: BP 158/75
[2019-01-21 00:13] VITALS: BP 144/69
--- NOTE | 2019-01-21 02:12 | NUR ---
ASSUMED CARE OF PT AT 1915. PT ALERT AND ORIENTED X4. UP IN WHEELCHAIR VISITING WITH FAMILY THROUGH THE EVENING. LEFT SIDE REMAINS FLACCID. C/O PAIN IN RIGHT SHOULDER, RELIEVED WITH OXYCODONE X2. OXYGEN ON AT 1 LITER BY NASAL CANNULAE AT PT'S REQUEST, O2 SAT=97% ON ROOM AIR. VOIDING IN SMALL AMOUNTS USING BEDPAIN THROUGH THE NIGHT, DENIES PAIN OR BURNING WITH URINATION. HAS APPEARED TO BE SLEEPING WHEN CHECKED ON HOURLY ROUNDS. FALL PRECAUTIONS IN PLACE.
[2019-01-21 04:00] VITALS: BP 149/65
[2019-01-21 08:30] VITALS: BP 151/66
--- NOTE | 2019-01-21 14:29 | NUR ---
PT ALERT AND ORIENTED TIMES FOUR. VSS, 98%RA. PT C/O RIGHT SHOULDER PAIN AND NAUSEA PRN MEDICATIONS GIVEN WITH SOME RELEIF. PT UP IN WC FOR SOME PART OF THE SHIFT. PT STATES SHE WAS TOO TIRED TO GET UP FOR LUNCH, WILL ENCOURAGE TO DO SO FOR DINNER. FAMILY AT BEDSIDE. PT SLOWLY [facility].
[2019-01-21 20:07] VITALS: BP 150/96
--- NOTE | 2019-01-22 04:12 | NUR ---
ASSESSMENT: PT REMAIN ALERT AND ORIENT TIMES THREE, FORGETFUL AT TIMES. LIDO PATCH ON RIGHT SHOULDER. SCHEDULED PAIN MEDICATION GIVEN TIMES TWO. AT 0400 PT C/O FEELING NAUSEA, ZOFAN GIVEN WITH GOOD RELIEF. NO EMESIS WAS NOTED, SMALL AMT OF SPUTUM WAS NOTED. VSS, AFEBRILE. SLOW PROGRESS, WILL CONTINUE TO MONITOR.
--- NOTE | 2019-01-22 10:51 | NUR ---
DR. BULLOCK CALLED THIS MORNING AND GAVE ORDER FOR MRI FOR RIGHT SHOULDER WITHOUT CONTRAST. RADIOLOGY NOTIFIED, THEY SAID WILL COME BETWEEN 11-1215PM. STATES "NO INTERFERENCE WITH THERAPY, THEIR WILL BE FAMILY MEETING AT 5PM, NO INERFERENCE AT THAT TIME EITHER.
--- NOTE | 2019-01-22 14:20 | NUR ---
ENERGY MANAGEMENT SPECIALIST ( [place]) NOTIFIED THAT PATIENT HAS HAD LOOSE STOOL X3 TODAY, AND SHE STATE TO MONITOR PATIENT FOR RIGHT NOW, BUT IF SHE CONTINUES TO HAVE LOOSE STOOL, CHECK FOR C-DIFF AND THEN SHE CAN GIVE HER SOMETHING, " I DON'T WANT TO BACK HER UP", WILL MONITOR.
[2019-01-22 22:09] VITALS: BP 145/75
--- NOTE | 2019-01-23 03:47 | NUR ---
USING BEDPAN WITH STAFF ASSISTANCE, TURNED TO RIGHT SIDE TWICE AFTER USE AND IS ABLE TO TURN HERSELF WELL TO HER LEFT FOR BEDPAN USE. EYEDROPS AND EARDROPS APPRECIATED. PAIN MEDS LAST EVENING WITH ICE CREAM WHEN FAMILY AT BEDSIDE. HEATING PAD TO RIGHT SHOULDER MAINTAINED
[2019-01-23 04:50] VITALS: BP 160/88
[2019-01-23 08:00] VITALS: BP 150/67
--- NOTE | 2019-01-23 14:07 | NUR ---
ASSUMED CARE OF PT AT 0800. REPORTS SLEPT BETTER LAST NIGHT. UP TO DINNING ROOM FOR BREAKFAST, ATE 25% BREAKFAST & LUNCH. A&OX4 ABLE TO VOICE HER NEEDS. C/O SOB, ON 1L OF OXGYGEN SAT 98% VS STABLE. CONTINUE TO BE ON ABT FOR EAR DROP. REPORT RIGHT EAR HEARS BETTER, PT IS UP WITH 1-2 MAX ASSIST, STAND PIVOT TO BSC & W/C. PT HAS LEFT SIDED WEAKNESS CONTINUE TO USE E STIM ON LEFT LEG. PARTICIPATES WITH TRANFERING. CONSTANT REMINIDERS TO SITUP TALL & TO GRAB HOLD OF LEFT ARM WHEN MOVING. REASSESSMENT PER CHART. HAD GOOD BM THIS AM. DR. KING D/C CONTACT ISOLATION PRECAUTIONS. OFFERED SUPPORTIVE CARE AND ENCOURAGEMENT. MEDS, EYE DROPS, EAR DROPS GIVEN. TURN Q 2HRS, ON LOW AIR MATRESS BED. FALL PRECAUTION IN PLACE. CALL LIGHT WITHIN REACH. PT CALLS APPROPRIATE FOR BEDPAN RESTING IN BED. HAS RIGHT SHOULDER PAIN RATE PAIN 5/10, DENIES NEED FOR PRN TYLENOL NOW. SHE SAID HEATING PAD IS HELPING NOW.WILL CONTINUE TO MONITOR.
[2019-01-23 20:36] VITALS: BP 132/82
--- NOTE | 2019-01-24 01:24 | NUR ---
PT ASSESSMENT COMPLETED AND VSS. MEDS GIVEN ORDERED AND WELL TOLERATED. FALL PRECAUTIONS IN PLACE. SUPPORIVE FAMILY AT BEDSIDE. PT IV REMOVED PER DR REQUEST. PT USING BEDPAN AT HS. VOIDING LARGE AMOUNT OF YELLOW URINE. PT CALLED FOR BOTH DOSES OF PRN PAIN MEDICATION. RESTING WELL AND PAIN CONTROLLED AT THIS TIME. SLEEPING WELL. WILL CONTINUE TO MONITOR FREQUENTLY.
[2019-01-24 08:20] VITALS: BP 146/77
--- NOTE | 2019-01-24 10:12 | NUR ---
ASSUMED CARE AT 0700. PATIENT IS ALERT AND ORIENTEDX4, BUT FORGETFUL. PATIENT ZHONG'S, DIRECTOR OF GOLF ARE EQUAL. LUNGS ARE CLEAR AND DEMINISHED. ABD IS SOFT WITH BSX4. RIGHT SHOULDER PAIN RELIEVED BY LIDOCAINE PATCH. VOIDS DAVID COLORED URINE. UP WITH ASSIST OF 1 GAIT BELT AND WALKER. FALL AND SAFETY PROTOCOLS IN PLACE. DENIES ANY PAIN. CONTINUES TO PROGRESS TOWARDS D/C GOALS. PATIENT HAS 4+ EDEMA IN LOWER EXTREMITIES. WILL CONTINUE TO MONITER.
[2019-01-24 21:19] VITALS: BP 158/70
--- NOTE | 2019-01-25 03:52 | NUR ---
PT ASSESSMENT COMPLETED AND VSS. MEDS GIVEN ORDERED AND WELL TOLERATED. FALL PRECAUTIONS IN PLACE. REPOSITIONED ORDERED USING PILLOWS FOR COMFORT. ENC PO FLUIDS. VOIDING MODERATE AMOUNT OF YELLOW URINE PER BEDPAN. SLEEPING WELL. WILL CONTINUE TO MONITOR FREQUENTLY.
--- NOTE | 2019-01-25 15:57 | NUR ---
ASSUMED CARE AT APPROX 0715. PATIENT A/O X4. C/O HEADACHE, EARACHE, AND RIGHT SHOULDER PAIN. PHSYCIAN CALLED FOR ONETIME ORDER FOR PAIN MEDS, TYELNOL ADMINISTERED BUT PATIENT REPORTS INSUFFICIENT RELIEF OF PAIN. VSS. ASSISTS WITH TURN Q2. TOILETED PER BSC. PARTICIPATED IN THERAPY. UP IN CHAIR OUT TO TABLES FOR LUNCH. FALL PRECAUTIONS IN PLACE. ROUNDED ON HOURLY. FLUIDS ENCOURAGED WITH SUPERVISION FOR SAFE SWALLOWING VIA SMALL CUP SIPS. FAMILY AT BEDSIDE. WILL CONTINUE TO MONITOR.
[2019-01-25 19:44] VITALS: BP 150/85
--- NOTE | 2019-01-26 06:45 | NUR ---
PT LYING IN BED. OXY IR PROVIDING PAIN RELIEF. VOIDING PER BEDPAN. RESTING COMFORTABLY. NO NEEDS VOICED. CALL LIGHT WITHIN REACH. WILL CONTINUE TO PROVIDE FREQUENT OBSERVATION.
[2019-01-26 08:00] VITALS: BP 154/86
--- NOTE | 2019-01-26 13:04 | NUR ---
Nutrition: Pt seen per followup. Fair appetite continues generally eating 25-50% of meals. ST continues vital stim. Pt voices she likes the food and is unable to provided specific preferences. Was drinking the ensure BID but now states it causes her diarrhea. Likes pudding, will try ensure pudding BID instead. No new weight since 01/12, have requested. Continue present interventions, may consider appetite stimulant if pt has lost weight.
--- NOTE | 2019-01-26 15:13 | NUR ---
ASSUMED CARE AT APPROX 0715. REPORTS SLEPT BETTER. MORE AWAKE THIS AM. UP FOR THERAPY. FEELS TIRED AND SLEEPY NOW. PATIENT A/O X4. C/O RIGHT SHOULDER PAIN. PRN TYLNEOL GIVEN AND HEATING PAD USE WHEN IN BED. LIDODERM PATCH ON AT NIGHT OFF AT THIS MOMENT. VSS ON RA. ASSISTS WITH TURN Q2. TOILETED PER BSC. HAD 300CC CLOUDY URINE. OFF ABT. ENCOURAGED PT TO DRINK CRANBERRY JUICE. PARTICIPATED IN THERAPY. UP IN CHAIR OUT TO TABLES FOR LUNCH. FALL PRECAUTIONS IN PLACE. ROUNDED ON HOURLY. FLUIDS ENCOURAGED WITH SUPERVISION FOR SAFE SWALLOWING VIA SMALL CUP SIPS. OFFERED SUPPORTIVE CARE. PT SITTING BETTER TODAY. CONTINUE TO BE ON VIT STIM ON LEFT LEG. ATE BOWEL OF CREAM OF CHICKEN. PT LIKES TO EAT FISH AND CREAM OF CHICKEN EACH MEALS AND CRANBERRY JUICE ORDER. WILL CONTINUE TO MONITOR.
[2019-01-26 20:49] VITALS: BP 153/82
--- NOTE | 2019-01-27 04:33 | NUR ---
TURNED Q2H PER "CLOCK SCHEDULE" WHICH IS COORDINATING WITH BEDPAN USE OVERNIGHT APPROX EVERY 2 HOURS WELL. APPRECIATES PAIN PILLS EARLY IN SHIFT, LIDODERM PATCH, AND HEATING PAD FOR RIGHT SHOULDER PAIN. PLEASANT AND TAKING SIPS OF FLUID WITH USE OF ESPRESSO CUPS.
[2019-01-27 08:05] VITALS: BP 163/60
--- NOTE | 2019-01-27 13:54 | NUR ---
team meeting, recommendation: , home with 24 care givers and hh vs CUSTODIAL. family training.
--- NOTE | 2019-01-27 18:00 | NUR ---
ASSUMED CARE AT APPROX 0715. PATIENT A/O X4. REPORTED SLEPT BETTER. C/O RIGHT SHOULDER PAIN. PRN TYLENOL GIVEN 2X. VSS. ASSISTS WITH TURN Q2. TOILETED PER BSC. PARTICIPATED IN THERAPY. UP IN CHAIR OUT TO TABLES FOR MEALS, ATE MORE THAN 25% EACH MEALS. RECEIVED ORDER FROM DR. HOLLEY TO D/C FIBER RESTRICTION. FALL PRECAUTIONS IN PLACE. ROUNDED ON HOURLY. FLUIDS ENCOURAGED WITH SUPERVISION FOR SAFE SWALLOWING VIA SMALL CUP SIPS. FAMILY AT BEDSIDE. OFFERED SUPPORTIVE CARE. PT USES CALL LIGHT APPROPRIATELY. CHECKED FREQUENTLY FOR NEEDS AND SAFETY. PT CONTINUE TO WORK ON HER E STIM ON LLE AND ST WORKED ON VITAL STEM FOR HER SWALLOWING. CONTINUE TO PROGRESS SLOWLY TO D/C GOALS ON NEXT SATURDAY. REASSESMENT PER CHART. HAD SOFT BM THIS AM. WILL GIVE REPORT TO NIGHT NURSE TO CONTINUE TO MONITOR.
[2019-01-27 20:01] VITALS: BP 139/81
--- NOTE | 2019-01-28 01:31 | NUR ---
assumed care at approx 1900 evening 01/27. pt lying in bed at change of shift resting with head of bed elevated and visiting with several family members at bedside. pt pleasant and cooperative. pt given hs meds with water at bedtime with no problems. pt asking to use bedpan several times this night voiding small amts concentrated urine. pt requested pain med approx 0040 for right shoulder pain. pt given dose of Oxycodone that was not given approx 1999. pt appears to be sleeping soundly now. bed alarm on and call light in reach. will continue to monitor.
[2019-01-28 09:30] VITALS: BP 142/70
[2019-01-28 09:32] VITALS: BP 117/63
[2019-01-28 09:33] VITALS: BP 139/62
--- NOTE | 2019-01-28 10:11 | NUR ---
cm left message with son marvin rt dcp on and with need for 24h cg
--- NOTE | 2019-01-28 11:35 | NUR ---
ASSUMED CARE AT 0700. PATIENT IS ALERT AND ORIENTED. PATIENT HAS LEFT SIDED FLACIDITY. LUNG ARE CLEAR. ABD IS SOFT WITH BSX4. UP TO THE BSC TO VOID DAVID COLORED URINE. PATIENT HAD BM TODAY. UP IN THE W/C WITH ASSIST OF 2 STAFF. OUT TO THE DINING ROOM FOR MEALS. FALL AND SAFETY PROTOCOLS IN PLACE. C/O PAIN IN HER RIGHT SHOULDER. LIDOCAINE PATCH OFF. WILL CONTINUE TO MONITER.
--- NOTE | 2019-01-28 14:51 | NUR ---
Patient participated in community reintegration on 01/28/19 with Speech Therapy. Refer to documentation by
--- NOTE | 2019-01-28 16:22 | NUR ---
Pt PARTICIPATED IN COMMUNITY REINTEGRATION ON 01/28/[address], PLEASE REFER TO ST DOCUMENTATION.
[2019-01-28 19:17] VITALS: BP 178/84
[2019-01-28 19:35] VITALS: BP 148/82; BP 175/82; BP 178/84
--- NOTE | 2019-01-29 00:01 | NUR ---
PT ASSESSMENT COMPLETED AND VSS. MEDS GIVEN ORDERED AND WELL TOLERATED. FALL PRECAUTIONS IN PLACE. SCHEDULED AND PRN PAIN MEDICATION WORKING WELL. ASST WITH REPOSITION ORDERED USING PILLOWS FOR COMFORT. SLEEPING WELL. WILL CONTINUE TO MONITOR FREQUENTLY.
[2019-01-29 08:20] VITALS: BP 170/78
--- NOTE | 2019-01-29 08:37 | NUR ---
cm spoke with gemini wong, "[facility] would be 1st choice and [facility] the 2nd choice for skilled"/marvin. [facility] are able to accept for dc on . cm left message with and son marvin that [facility] is able to accept.
--- NOTE | 2019-01-29 10:15 | NUR ---
FAXED REFERRAL TO [facility] SPOKE WITH GRICELDA IN ADM. SHE RECEIVED REFERRAL AND WILL BE ABLE TO ACCEPT PT. AT DC ANTICIPATE DC 02/03. DCP TO FOLLOW.
[2019-01-29 11:15] VITALS: BP 146/67
--- NOTE | 2019-01-29 17:18 | NUR ---
ASSUMED CARE AT APPROX 0715. PATIENT A/O X4. C/O RIGHT SHOULDER PAIN AND HEADACHE. BP ELEVATED THIS AM, WITHIN EXPECTED LIMITS ON RE-CHECK. SCHEDULED TYLENOL GIVEN PER ORDERS. TRANSFERED X2 ASSIST. MEDS GIVEN PER ORDERS. PATIENT PARTICIPATED IN THERAPY. FALL PRECAUTIONS IN PLACE. PATIENT TOILETED PER BSC THIS DATE. RIGHT SHOULDER HEATING PAD APPLIED. UP IN CHAIR FOR ALL MEALS. WILL CONTINUE TO MONITOR.
[2019-01-29 20:36] VITALS: BP 153/70
--- NOTE | 2019-01-30 00:53 | NUR ---
PT ASSESSMENT COMPLETED AND VSS. MEDS GIVEN ORDERED AND WELL TOLERATED. FALL PRECAUTIONS IN PLACE. UP TO THE BATHROOM WITH ASST/GAIT/WALKER/BOOT. MS CAUSES PT TO TREMOR WHICH MAKES WALKING AND HOLDING ON TO THINGS VERY DIFFICULT. VOIDING MODERATE AMOUNT OF YELLOW URINE. RIGHT FOOT BOOT IN PLACE. R FOOT/LEG WITH GOOD PULSE AND WARM TO THE TOUCH. SLEEPING WELL. WILL CONTINUE TO MONITOR FREQUENTLY.
--- NOTE | 2019-01-30 00:58 | NUR ---
PT ASSESSMENT COMPLETED AND VSS. MEDS GIVEN ORDERED AND WELL TOLERATED. FALL PRECAUTIONS IN PLACE. ASST WITH FREQUENTLY REPOSITION ORDERED. VOIDING LARGE AMOUNT PER BEDPAN. SUPPORTIVE FAMILY AT BEDSIDE. SCHEDULED AND PRN PAIN MEDICATION WORKING WELL. SLEEPING. WILL CONTINUE TO MONITOR FREQUENTLY.
--- NOTE | 2019-01-30 16:10 | NUR ---
ASSUMED CARE AT APROX 0715. PATIENT A/O X4. C/O RIGHT SHOULDER PAIN. TYLENOL GIVEN ORDERED. HEATING PAD APPLIED. VSS. UP TO BSC TO TOILET. TRANSFER X2 PERSON ASSIST. FLACCID ON LEFT SIDE. SHOWER COMPLETED THIS DATE WITH ASSIST OF 2 PERSONS. UP WO WC AND OUT TO DINING ROOM FOR MEALS. FALL PRECAUTIONS IN PLACE. PATIENT VISIBLE FROM NURSES STATION. ROUNDED ON HOURLY. WILL CONTINUE TO MONITOR.
--- NOTE | 2019-01-30 18:58 | HC ---
[facility] [place] [address] CONSULTATION Name: COTY LUZ Room #: 513-P ADM IN M.R.#: [id number] Admission: 01/08/19 ������������������ Attend Phys: Tremayne Tsang MD Discharge: ������������������ Date of : 34 Report #: [id number] THIS REPORT FOR: //name// CC: Tremayne Luz DATE OF SERVICE: 01/19/2019 REFERRAL PHYSICIAN: Miguel A Warren MD. REASON FOR REFERRAL: Dyspnea. HISTORY OF PRESENT ILLNESS: This is an 83-year-old white female who was admitted to the hospital following an acute stroke involving the right basal ganglia. She is going to rehab unit. Since the stroke, the patient has been complaining of episodic dyspnea. For that reason, pulmonary consultation was requested. The patient was initially admitted at [facility]. 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 History suggests that the patient may have fallen at the time of the EDI DEVELOPER bleed. She has since stabilized and was subsequently transferred to the Rehab Unit at [facility]. She is currently awake, alert, appears weak. She has left hemiparesis. The patient denies any past history of chronic lung disease. She denies any history of tobacco use. PAST MEDICAL HISTORY: As mentioned above including autoimmune uveitis, treated with Humira, followed by Dr. Royce Myrick; history of polymyalgia rheumatica; hypertension; hyperlipidemia; bilateral cataract surgery; hysterectomy for uterine prolapse; osteoarthritis involving lower back, knees; gastroesophageal reflux disease; bilateral carpal tunnel repair. ALLERGIES: None to medications. HOME MEDICATIONS: List reviewed in the MAR. FAMILY HISTORY: Notable for COPD in the father. Father had smoked cigarettes. Mother had leukemia. She has . SOCIAL HISTORY: She is a . No history of tobacco or alcohol use. The patient has 14 children. She is a [employer]. [facility] [address] [place] [address] CONSULTATION Name: COTY LUZ Taran Room #: 513-P [facility] IN [facility].#: [id number] Admission: 01/08/19 ������������������ Attend Phys: Tremayne Tsang MD Discharge: ������������������ Date of : 34 Report #: [id number] REVIEW OF SYSTEMS: As mentioned above. Otherwise, 10-point system review negative. PHYSICAL EXAMINATION: GENERAL: She is awake, alert, in no distress. VITAL SIGNS: Temperature is 98.8 degrees Fahrenheit, pulse is 80, respiratory rate is 18, blood pressure 147/70 mmHg, saturation 98%. HEENT: Normocephalic, atraumatic. NECK: Supple without lymphadenopathy or thyromegaly. CHEST: Breath sounds are fair due to poor effort. No obvious rales or wheezes. CARDIOVASCULAR: Normal S1, S2. No murmurs or gallop. There is no JVD. No carotid bruit. Pulses are 2+/4+ bilaterally. ABDOMEN: Soft, nontender. No organomegaly or masses felt. GENITOURINARY: Deferred. RECTAL: Deferred. EXTREMITIES: There is no edema, cyanosis or clubbing. NEUROLOGICAL: She has left hemiparesis. LABORATORY DATA: Chest x-ray shows mild left basilar atelectasis, otherwise unremarkable. Electrolytes are normal. Liver enzymes are grossly unremarkable. WBC is 13,400, hemoglobin is normal. Arterial blood gas revealed pH 7.43, pCO2 36, pO2 80 on room air. Albumin 3.3. IMPRESSION: 1. Dyspnea in this 83-year-old white female. Recent right basal ganglia stroke with left hemiparesis. Suspect dyspnea, likely multifactorial due to weakness, inability to clear secretions. Her saturation on arterial blood gas is adequate. Pulmonary embolus is felt to be less likely though cannot be absolutely ruled out. Deep venous thrombosis prophylaxis is recommended. 2. Right basal ganglia stroke with left hemiparesis, dysphagia. 3. Recent fall with right rotator cuff tear. 4. Autoimmune uveitis with polymyalgia rheumatica, on chronic steroids and Humira. 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 5. Hypertension. 6. Moderate aortic stenosis. 7. Syncopal episode due to above. 8. Polyneuropathy. 9. Gastroesophageal reflux disease. RECOMMENDATION: Would suggest ongoing chest physiotherapy as tolerated. Clearing secretions were p.r.n. suctioning. Incentive spirometry may be helpful. We will continue to monitor closely as the patient is at risk for developing respiratory complications due to her stroke. DVT and GI prophylaxis recommended. Given her recent bleed, SCDs will be applied. [address] [address] CONSULTATION Name: COTY LUZ Room #: 513-P [facility] IN M.R.#: [id number] Admission: 01/08/19 ������������������ Attend Phys: Tremayne Tsang MD Discharge: ������������������ Date of : 34 Report #: [id number] Thank you for this consultation. ��������������������������������������������� <ELECTRONICALLY SIGNED> ���������������������������������������� By: Avni Solorio MD ��������������������������������������������� 01/30/19 1858 2044 99 Avni Solorio MD /nt
[2019-01-30 19:59] VITALS: BP 141/72
--- NOTE | 2019-01-31 03:30 | NUR ---
assumed care at approx 1900 evening 01/30. pt lying in bed with head of bed elevated resting and visiting with family at bedside. pt given meds at hs as ordered and patch to right shoulder. pt appears to be sleeping soundly with rounding checks. bed alarm on and call light in reach. will continue to monitor.
[2019-01-31 07:25] VITALS: BP 175/95
--- NOTE | 2019-01-31 09:00 | NUR ---
PT C/O DYSPNEA THIS AM AROUND 0715. PCT CHECKED O2 SAT AND IT WAS 97%, RESPIRATIONS WERE EVEN AND UNLABORED AT 16-18/MIN ESTIMATED, AND PT WAS NOT APPEARING DISTRESSED. O2 WAS PLACED AT 1L PER NC FOR COMFORT UNTIL RN COULD ASSESS. ASSESSED LUNG SOUNDS WERE CLEAR, AND PT WAS NOT DISTRESSED, SO SHE WAS ASSISTED TO WC FOR BREAKFAST AND DENIED DYSPNEA ONCE SHE WAS SITTING UP IN WC. ENCOUAGING TIME UP OOB TODAY.
--- NOTE | 2019-01-31 10:49 | NUR ---
PT ASSISTED TO BSC AND HAD BM THIS AM, STILL C/O MILD RT SHOULDER PAIN, BUT SOME RELIEF FROM TYLENOL GIVEN EARLIER THIS AM. PT IS 2 ASSIST TO PIVOT TRANSFER, AND IS CONTINENT OF BOWEL AND BLADDER. ENDOURAGING USE OF THE BSC DURING THE DAYTIME. PT REFUSED BATHING AND DRESSING AT THIS TIME AND FAMILY AT BEDSIDE TO VISIT. PT HAS MANY VISITORS! BUT VISIT WAS NOT LONG AND PT IS RESTING WITH CALL LIGHT IN REACH.
[2019-01-31 11:16] LABS: ABSOLUTE NEUTROPHILS 6.3 thou/uL (1.4-8.2); BASOPHILS 0.7 % (0.0-2.0); EOSINOPHILS 1.3 % (0.0-3.0); HEMATOCRIT 38.1 % (37.0-47.0); HEMOGLOBIN 12.7 gm/dL (12.0-15.0); MCH 31.4 pg (26.0-34.0); MCHC 33.4 g/dL (28.0-37.0); PLATELET COUNT 285 thou/uL (150-400); RBC 4.05 mil/uL (4.20-5.00); RDW 13.8 % (10.5-14.5); WBC 9.3 thou/uL (4.0-11.0)
[2019-01-31 11:30] LABS: ALBUMIN 3.1 g/dL (3.4-5.0); CALCIUM 8.8 mg/dL (8.5-10.1); CREATININE 0.7 mg/dL (0.6-1.0); POTASSIUM 3.6 mmol/L (3.5-5.1); TOTAL BILIRUBIN 0.8 mg/dL (<0.1-1.0); TOTAL PROTEIN 5.8 g/dL (6.4-8.2)
[2019-01-31 13:18] VITALS: BP 162/64
--- NOTE | 2019-01-31 16:27 | NUR ---
VOIDS PER COMMODE. URINE SENT FOR CULTURE AND SENSITIVITY. VERY PLEASANT AND COOPERATIVE. UP TO DINING ROOM FOR MEALS. PROGRESSING TOWARD GOALS.
[2019-01-31 17:51] LABS: URINE BILIRUBIN NEGATIVE (Negative); URINE BLOOD TRACE (Negative); URINE CLARITY CLEAR; URINE COLOR YELLOW; URINE GLUCOSE-RANDOM* NEGATIVE (Negative); URINE KETONES NEGATIVE (Negative); URINE PROTEIN (DIPSTICK) NEGATIVE (Negative); URINE UROBILINOGEN 0.2 E.U./dl (0.2-1.0)
[2019-01-31 17:55] LABS: URINE LEUKOCYTES-REFLEX 1+ (Negative); URINE NITRITE-REFLEX POSITIVE (Negative)
[2019-01-31 17:59] LABS: BACTERIA-REFLEX >30 Many /HPF (None Seen); CASTS None Seen /LPF (None Seen); CRYSTALS None Seen /LPF (None Seen); SQUAMOUS 4-10 Moderate /LPF (0-3); URINE RBC None Seen /HPF (0-2)
[2019-01-31 19:50] VITALS: BP 147/79
[2019-02-01 04:18] VITALS: BP 146/71
--- NOTE | 2019-02-01 05:20 | NUR ---
C/O HEADACHE AT 2100 AND 0100, AT 0100 HEADACHE DECREASED IN INTENSITY WITHIN 20 MINUTES, BUT SHE THREW UP 30 CC, THEN FELT LESS NAUSEA WITHIN TEN MINUTES. ---GIVEN ZOFRAN ODT 10 MINUTES PRIOR TO ONETIME DOSE OF 100MG TRAMADOL AND THERE ARE NO C/O M/V OR PAIN THIS MORNING. PATIENT USING BEDPAN AND TOLERATING TURNS TO SIDE Q2H. BP CHECKED AND WITHIN NORMAL LIMITS THIS MORNING, PLAN NORVAS THIS AM
[2019-02-01 08:54] VITALS: BP 157/83
[2019-02-01 09:02] VITALS: BP 151/79
--- NOTE | 2019-02-01 14:38 | NUR ---
ASSUMED CARE AT APPROX 0715. PATIENT A/O X4. C/O RIGHT SHOULDER PAIN. DENIES NAUSEA AND HEADACHE. SCHEDULED TYLENOL PROVIDED, HEATING PAD APPLIED. REPORTED RELIEF. VSS. PATIENT UP TO WC TO VISIT WITH FAMILY. TOILETED PER BSC. TRANSFERS X2 PERSON ASSIST. FLUIDS ENCOURAGED. PATIENT ABLE TO FEED HERSELF WITH SET UP. MEDS GIVEN PER ORDERS. FALL PRECAUTIONS IN PLACE. FAMILY AT BEDSIDE. ROUNDED ON HOURLY. WILL CONTINUE TO MONITOR.
[2019-02-01 20:20] VITALS: BP 159/70
--- NOTE | 2019-02-02 02:49 | NUR ---
ASSUMED CARE AT APPROX 1900 EVENING 02/01. PT LYING IN BED WITH HEAD OF BED ELEVATED AT CHANGE OF SHIFT. SEVERAL FAMILY MEMBERS WITH PT AT BEDSIDE VISITING WITH PT. PT ASSISTED WITH BEDPAN TO VOID AND PT CALLS OUT FREQUENTLY FOR BEDPAN. PT TOOK HS MEDS WITH ICE CREAM AND WATER TOLERATING WELL. PT APPEARS TO BE SLEEPING SOUNDLY AT PRESENT. CALL LIGHT IN REACH AND BED ALARM IN PLACE. WILL CONTINUE TO MONITOR.
[2019-02-02 06:27] VITALS: BP 156/66
[2019-02-02 07:31] VITALS: BP 170/74
[2019-02-02 09:50] VITALS: BP 172/79
[2019-02-02 10:21] VITALS: BP 143/71
--- NOTE | 2019-02-02 11:41 | NUR ---
ASSUMED CARE AT APPROX 0715. REPORTS SLEPT WELL LAST NIGHT. PATIENT A/O X4. C/O RIGHT SHOULDER PAIN 05/23, GAVE PRN TRAMADOL FOR PAIN AND PREMEDICATED WITH PRN ZOFRAN. B/P WAS HIGH THIS AM BEFORE PT GOT UP MAY BE D/T PAIN AND DEPRESSED. OFFERED SUPPORTIVE CARE. OT GAVE PT UP AND WASHED HER HAIR. PT FELT BETTER, UP TO DINNING ROOM ATE 25% BREAKFAST. B/P IS DOWN NOW. SEE [employer]. DR. HOLLEY WAS HERE ORDER FOR CHEST XRAY D/T COUGH AND PERSISTENT NAUSEA. CHEST XRAY NO CHANGE. RIGHT SHOULDER MANAGE WITH SCHEDULE PAIN MEDS, PRN TRAMADOL AND HEATING PAD APPLIED. REPORTED RELIEF. VSS. TOILETED PER BSC. REASSEMENT PER CHART. TRANSFERS 1-2X PERSON ASSIST. FLUIDS ENCOURAGED. PATIENT ABLE TO FEED HERSELF WITH SET UP. MEDS GIVEN PER ORDERS. FALL PRECAUTIONS IN PLACE. FAMILY IS SUPPORTIVE. PT UP WITH PHYSICAL THERAPY NOW. NO SKIN ISSUES. UP FOR THERAPY AND BSC DURING DAY. ROUNDED ON HOURLY. WILL CONTINUE TO MONITOR.
[2019-02-02] MEDS ORDERED: AMLODIPINE BESY10 MG PO (12:09)
[2019-02-02] MEDS ORDERED: OXYCODONE HCL 5 MG PO ×2 (12:10)
[2019-02-02] MEDS ORDERED: TRAMADOL 50 MG PO (12:11)
[2019-02-02] MEDS ORDERED: TYLENOL EXTRA500 MG PO (12:11)
[2019-02-02] MEDS ORDERED: DULOXETINE 30 MG PO (12:12)
[2019-02-02] MEDS ORDERED: MINERAL OIL473 ML OTIC (12:13)
[2019-02-02] MEDS ORDERED: MIRALAX17 GM PO (12:13)
[2019-02-02] MEDS ORDERED: PANTOPRAZOLE 20 MG PO (12:13)
[2019-02-02] MEDS ORDERED: [UNRECOGNIZED DRUG - OTHER] DISSOLVE (12:13)
[2019-02-02] MEDS ORDERED: ZOFRAN 4 MG DISSOLVE (12:13)
[2019-02-02] MEDS ORDERED: LIDOPATCH1 EACH TRANSDERM (12:14)
[2019-02-02] MEDS ORDERED: HOME MEDICATION OPHTHALMIC ×2 (12:14)
[2019-02-02] MEDS ORDERED: Prednisone 5 MG TAB PO (12:14)
[2019-02-02 19:22] VITALS: BP 154/86
--- NOTE | 2019-02-03 02:28 | NUR ---
ASSUMED CARE AT APPROX 1900 EVENING 02/02. PT LYING IN BED WITH HEAD OF BED ELEVATED RESTING AND VISITING WITH FAMILY AT BEDSIDE. PT PLEASANT AND COOPERATIVE. PT ASSISTED WITH BEDPAN TO VOID AND PT APPEARS TO BE SLEEPING SOUNDLY WITH HOURLY ROUNDING CHECKS. BED ALARM ON AND CALL LIGHT IN REACH. WILL CONTINUE TO MONITOR.
[2019-02-03 08:17] VITALS: BP 169/86
--- NOTE | 2019-02-03 10:15 | NUR ---
PT. DISCHARGING TODAY TO [facility] FAXED DC ORDERS/SUMMARY TO FACILITY. SPOKE WITH MAGDALENA IN ADM. SHE RECEIVED DC ORDERS AND ARRANGED TRANSPORT VIA [facility] FOR 1300 TODAY. NOTIFIED PT'S SON DR. ANAID RAMÍREZ OF DISCHARGE AND TIME OF TRANSPORT. UNIT NOTIFIED AND CHART COPY PER US. RN TO CALL REPORT TO [phone].
--- NOTE | 2019-02-03 11:06 | NUR ---
ASSUMED CARE AT APPROX 0715. PT WILL GO TO [facility] TODAY AT 1300. CALLED AND GAVE REPORT TO DAVIDE PETE AT [facility]. [facility]. HOLLEY AND HIS FAMILY AWARE PT WILL LEAVE AT 1300. SHIFT NOTE: PT REPORTS SLEPT WELL LAST NIGHT. HAD HEADACHE THIS AM. TYLENOL GIVEN PER NIGHT NURSE. HEADACHE IS BETTER NOW. PATIENT A/O X4. ATE 50% BREAKFAST. C/O RIGHT SHOULDER PAIN 05/23, GIVE PRN TRAMADOL FOR PAIN AND PREMEDICATED WITH PRN ZOFRAN. VSS ON RA. OFFERED SUPPORTIVE CARE. TOILETED PER BSC. REASSEMENT PER CHART. TRANSFERS 1-2X PERSON ASSIST. FLUIDS ENCOURAGED. PATIENT ABLE TO FEED HERSELF WITH SET UP. MEDS GIVEN PER ORDERS. FALL PRECAUTIONS IN PLACE. FAMILY IS SUPPORTIVE. PT UP WITH PHYSICAL THERAPY NOW. NO SKIN ISSUES. ROUNDED ON HOURLY. WILL CONTINUE TO OFFER SUPPORT AND ENCOURAGEMENT. WILL CONTINUE TO MONITOR.
== END 2019-02-03 13:03 | DRG 57 ==
PROVIDERS: Internal Medicine; Nurse Practitioner Family; ADMIT Physical Medicine & Rehabilitation
DX: I69.254 Hemiplegia and hemiparesis following other nontraumatic intracranial hemorrhage affecting left non-dominant side (principal); I62.9 Nontraumatic intracranial hemorrhage, unspecified; F01.51 Vascular dementia, unspecified severity, with behavioral disturbance; H20.9 Unspecified iridocyclitis; N39.0 Urinary tract infection, site not specified; R47.1 Dysarthria and anarthria; G62.9 Polyneuropathy, unspecified; K21.9 Gastro-esophageal reflux disease without esophagitis; I10 Essential (primary) hypertension; E78.5 Hyperlipidemia, unspecified; M19.90 Unspecified osteoarthritis, unspecified site; R33.9 Retention of urine, unspecified; B96.20 Unspecified Escherichia coli [E. coli] as the cause of diseases classified elsewhere; K59.00 Constipation, unspecified; L29.9 Pruritus, unspecified; S40.011A Contusion of right shoulder, initial encounter; M75.101 Unspecified rotator cuff tear or rupture of right shoulder, not specified as traumatic; H40.9 Unspecified glaucoma; I95.1 Orthostatic hypotension; S80.01XA Contusion of right knee, initial encounter; S90.512A Abrasion, left ankle, initial encounter; J38.00 Paralysis of vocal cords and larynx, unspecified; R13.12 Dysphagia, oropharyngeal phase; F32.9 Major depressive disorder, single episode, unspecified; M35.3 Polymyalgia rheumatica; I35.0 Nonrheumatic aortic (valve) stenosis; Z79.52 Long term (current) use of systemic steroids; W18.39XA Other fall on same level, initial encounter; Y93.89 Activity, other specified; Y92.89 Other specified places as the place of occurrence of the external cause; Y99.8 Other external cause status; Z98.42 Cataract extraction status, left eye; Z98.41 Cataract extraction status, right eye; Z90.710 Acquired absence of both cervix and uterus; Z83.6 Family history of other diseases of the respiratory system; Z80.6 Family history of leukemia; Z90.49 Acquired absence of other specified parts of digestive tract
CPT/HCPCS: 10112

== ENCOUNTER 2020-01-18 18:11 | Inpatient (IN) | payer OTHER ==
[~2020-01-18] VITALS: Ht 165.1 cm; Wt 71.0 kg
--- NOTE | ~2020-01-18 | EMS ---
[address] [address] EMS Patient Care Report Name: DESIREECOTY Room #: 354-P ADM IN M.R.#: [id number] Admission: 01/18/20 Attend Phys: Royce Ramírez MD Discharge: Date of : 34 Report #: [id number] THIS REPORT FOR: //name// Report Transmitted: 01/19/2020 06:34 EMS Care Summary [facility] MED-ACT Incident [id number] @ 01/18/2020 17:37 Incident Location [address] [place] [address] Patient COTY HOLLEY Female, 84 Years 1935 Patient Address [address] [place] [address] Patient History Hypertension (HTN),Stroke/CVA, Patient Allergies No known allergies, Patient Medications Lisinopril, Chief Complaint Diarrhea Disposition Transported No Lights/[place] Dispatch Reason Sick Person Transported To [facility] Narrative EMS was dispatched for a patient having diarrhea over the last 24 hours. Prior to EMS arrival proper PPE was donned including gloves, surgical masks and eye [address] [address] EMS Patient Care Report Name: COTY RAMÍREZ Room #: 354-P [facility] IN .R.#: [id number] Admission: 01/18/20 Attend Phys: Royce Ramírez MD Discharge: Date of : 34 Report #: [id number] protection. Upon EMS arrival nursing staff advised they were going to move the patient to the front door via wheel chair. Once the patient arrived EMS assessed the patient. The patient had a GCS of 15 and advised she had diarrhea for the last day and her son, who was a doctor, wanted her transported to [facility] for further evaluation. EMS placed the patient on the cot and placed her in the ambulance. The patient was placed on the monitor and reassessed throughout the transport. The patient was transported to [facility] for further evaluation. Initial Vitals @17:55P: 90,R: 18,BP: 105/70,Pain: 0/10,GCS: 15,SpO2: 94,Revised Trauma: 12, @18:00P: 89,R: 18,BP: 106/57,Pain: 0/10,GCS: 15,SpO2: 94,Revised Trauma: 12, Assessments @17:45MENTAL:Person Oriented,Time Oriented,Place Oriented,Event Oriented,SKIN:HEENT:Head/Face: No Abnormalities,LUNG SOUNDS:General: No Abnormalities,ABDOMEN:General: No Abnormalities,PELVIS//GI:Pelvis GUOther,Incontinence,EXTREMITIES:Left Leg: Paralysis,Left Arm: Paralysis,Right Arm: No Abnormalities,Right Leg: No Abnormalities,PULSE:NEURO: Impression Diarrhea Procedures @17:45ALS AssessmentResponse: UnchangedSucceeded Timeline 17:37,Call Received 17:37,Psap Call 17:37,Dispatched 17:38,En Route 17:42,On Scene 17:45,At Patient 17:45,ALS Assessment,Response: UnchangedSucceeded, 17:55,BP: 105/70 M,PULSE: 90,RR: 18 R,SPO2: 94 Ox,ETCO2: ,BG: ,PAIN: 0,GCS: 15, 17:56,Depart Scene 18:00,BP: 106/57 M,PULSE: 89,RR: 18 R,SPO2: 94 Ox,ETCO2: ,BG: ,PAIN: 0,GCS: 15, 18:04,At Destination 18:27,Call Closed Disclaimer v1.1 Copyright 2020 [employer] This EMS Care Summary contains data elements from the applicable legal record (which may be displayed differently). It is designed to provide pertinent information for the following purposes: continuity of care, clinical quality, and state data reporting. The complete legal record is available to ED staff [address] [address] EMS Patient Care Report Name: COTY RAMÍREZ Room #: 354-P ADM IN ..#: [id number] Admission: 01/18/20 Attend Phys: Royce Ramírez MD Discharge: Date of : 34 Report #: [id number] and administrators of the receiving hospital in ES's Patient Tracker. All data is provided "as is."
[~2020-01-18 18:11] MED LIST changes: +AMLODIPINE BESY10 MG PO; +DULOXETINE 30 MG PO; +LIDOPATCH1 EACH TRANSDERM; +MINERAL OIL473 ML OTIC; +OXYCODONE HCL 5 MG PO; +PANTOPRAZOLE 20 MG PO; +Prednisone 5 MG TAB PO; +TRAMADOL 50 MG PO; +ZOFRAN 4 MG DISSOLVE; +[UNRECOGNIZED DRUG - OTHER] DISSOLVE
[2020-01-18 18:15] VITALS: BP 105/52
[2020-01-18 19:02] LABS: HEMATOCRIT 42.7 % (37.0-47.0); HEMOGLOBIN 14.2 gm/dL (12.0-15.0); MCH 31.7 pg (26.0-34.0); MCHC 33.2 g/dL (28.0-37.0); MCV 95.4 fL (80.0-100.0); PLATELET COUNT 408 thou/uL (150-400); RBC 4.48 mil/uL (4.20-5.00); RDW 13.6 % (10.5-14.5); WBC 22.1 thou/uL (4.0-11.0)
[2020-01-18 19:08] LABS: CALCIUM 8.8 mg/dL (8.5-10.1); POTASSIUM 3.8 mmol/L (3.5-5.1)
[2020-01-18 19:14] LABS: ALBUMIN 3.1 g/dL (3.4-5.0); TOTAL PROTEIN 7.4 g/dL (6.4-8.2)
[2020-01-18] MEDS ORDERED: AZOPT OPHTH1 %/10 M1 OPHTHALMIC (19:14)
[2020-01-18] MEDS ORDERED: ARTIFICIAL TEAR1510 OPHTHALMIC (19:14)
[2020-01-18] MEDS ORDERED: BRIMONIDINE 0.110 ML OP (19:15)
[2020-01-18] MEDS ORDERED: CARVEDILOL12.5 MG PO (19:16)
[2020-01-18] MEDS ORDERED: LYRICA100 MG PO (19:17)
[2020-01-18] MEDS ORDERED: LOPERAMIDE 2 MG2 M1 PO (19:17)
[2020-01-18] MEDS ORDERED: MULTIVITAM9 MG/15 M1 PO (19:18)
[2020-01-18] MEDS ORDERED: OMEPRAZOLE 20 M20 M1 PO (19:19)
[2020-01-18] MEDS ORDERED: NORVASC 2.5 MG2.5 M1 PO (19:19)
[2020-01-18] MEDS ORDERED: ONDANSETRON ODT8 MG PO (19:20)
[2020-01-18] MEDS ORDERED: PRED FORTE 1% EY5 M1 LT. EYE (19:21)
[2020-01-18 19:34] LABS: ANISOCYTOSIS 1+; POLYCHROMASIA OCCASIONAL
[2020-01-18] MEDS ORDERED: PREDNISONE 5 MG5 M1 PO (19:42)
[2020-01-18] MEDS ORDERED: PROAIR HFA8.5 GM INH (19:43)
[2020-01-18] MEDS ORDERED: TRAZODONE HCL50 MG PO (19:43)
[2020-01-18] MEDS ORDERED: ASPERCREME 1141.7 GM TOP (19:44)
[2020-01-18] MEDS ORDERED: VOLTAREN GEL 1100 G2 TOP (19:45)
[2020-01-18 20:31] VITALS: BP 105/52
--- NOTE | 2020-01-18 20:51 | H ---
[facility] [address] [place] [address] HISTORY AND PHYSICAL Name: COTY LUZ Room #: 170-11 ADM IN M.R.#: [id number] Admission: 01/18/20 Attend Phys: Royce Luz MD Discharge: Date of : 34 Report #: [id number] THIS REPORT FOR: cc: oRyce Luz MD, Mark A. MD Angles, Mark A. MD ~ CC: Royce Luz DATE OF SERVICE: 01/18/2020 CHIEF COMPLAINT: Diarrhea. HISTORY OF PRESENT ILLNESS: The patient is an 84-year-old female who resides at [facility] in [place], [place]. Per staff report at the facility, she developed diarrhea today and has had several episodes of watery stools and increasing malaise and fatigue and "Lethargy." When I spoke with the patient about it, she stated that she had been ill for several days and just was not feeling well. The staff has been checking her frequently and no fever has been detected. The patient herself denies any coughing or shortness of breath or chest congestion. Her appetite has been much decreased today. She was out of bed briefly this morning in the wheelchair when one of her sons came by to [facility] to wave hello at her because it was his birthday. 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 She also at that time suffered a right rotator cuff injury, which was severe during a fall during transfer from [facility] to the rehab unit here. The rotator cuff tear injury has greatly hampered her rehabilitation efforts. She also has a history of moderately severe aortic valve stenosis, hypertension, gastroesophageal reflux disease, autoimmune uveitis, bilateral cataract removals. She has had a hysterectomy, vaginal type about 10 years ago. She had a bladder prolapse surgery with a sling as well. She has idiopathic peripheral neuropathy. She has had bilateral carpal tunnel repair surgeries. She had syncope after her first dose of doxazosin. She had a diffuse rash with itching when she was on lisinopril. She developed dizziness with gabapentin and also had a reaction TO SULFA ANTIBIOTICS in the past. She is a 16, para 14, living children 14. She has no history of coronary artery disease or peripheral arterial disease or any kind of cancer. She does have a history of some urinary retention issues. She was on a prolonged course of oral steroids for treatment of polymyalgia rheumatica. She does have some oropharyngeal dysphagia after her stroke, mild. She has a history of bilateral glaucoma. FAMILY HISTORY: Her father of a stroke and had a history of hypertension, coronary artery disease and emphysema from smoking. Her mother of leukemia in her 70s. She was a nonsmoker. Her sister of complications of a massive meningioma. She has one remaining sister [place] [address] HISTORY AND PHYSICAL Name: COTY LUZ Room #: 170-11 [facility] IN .R.#: [id number] Admission: 01/18/20 Attend Phys: Royce Luz MD Discharge: Date of : 34 Report #: [id number] of her daughters has had bladder cancer and numerous members in the family have hyperlipidemia and hypertension. 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 Shan Luz. She is a lifelong nonsmoker and has never abused alcohol or recreational drugs. Currently resides at the [facility] in [place], [place]. She has spent most of the past year in and out of hospitals and Rehab facilities trying to recover from her stroke, which happened in 12/2018. REVIEW OF SYSTEMS: The patient reports some dizziness and generalized malaise recently and some muscle aches and pains to a mild degree. The diarrhea history is as listed above. The patient denies any abdominal pains. She denies coughing or shortness of breath. She denies any chest pain. Her appetite is decreased in the last couple of days. Her mood has been very low recently due to the COVID-19 quarantine efforts of the facility where she resides. There was an employee who tested positive in the last week to 10 days at the facility where she resides. To my knowledge, none of the residents who reside there have tested positive. PHYSICAL EXAMINATION: VITAL SIGNS: The patient was seen in the Emergency Room and had vital signs of 36.8 degrees centigrade with a pulse of 86, respirations of 19 per minute, blood pressure 105/52 and a pulse oximetry of 96% on room air. She had a blood pressure of 98/60 at the facility prior to being transferred. GENERAL: The patient appears in general exam flushed and hair is damp from sweating. HEENT: Oropharynx is dry and pink without lesions. Eyes appear sunken and she was aroused with some difficulty initially on my arrival. Sinuses are nontender. Hearing is grossly normal. Extraocular muscles are intact. For her visual acuity, she was able to identify me on site. NECK: Without adenopathy or thyromegaly or mass. She does have a bruit that is radiating from the heart and there is positive tenting of the skin. LUNGS: Fairly clear bilaterally on exam and auscultation. CARDIAC: Reveals a regular rhythm with a 2-3/6 systolic ejection murmur consistent with known aortic stenosis. No rub or gallop. ABDOMEN: Soft. Bowel sounds are present and slightly hyperactive. No visceromegaly or masses. EXTREMITIES: There is no cyanosis or clubbing or peripheral edema. Peripheral pulses are weak diffusely, but easily palpated. NEUROLOGIC: The patient has a left hemiparesis grossly. She does have some proximal strength in both her left upper and left lower extremity. She has chronically tender right shoulder with decreased range of motion there as well. She does have a good cigar packer and grader on the right side and a weak cigar packer and grader on the left side. She is not weightbearing at this time. [address] [address] HISTORY AND PHYSICAL Name: COTY LUZ Room #: 170-11 [facility] IN M.R.#: [id number] Admission: 01/18/20 Attend Phys: Royce Luz MD Discharge: Date of : 34 Report #: [id number] MENTAL STATUS: The patient is arousable and remains alert for a prolonged period. No overt hallucinations or delusions, although she was transiently confused about where she was, but was easily reoriented. Affect is markedly depressed. MEDICATIONS: List is as follows: Acetaminophen, artificial tears, Azopt suspension 1%, brimonidine tartrate 0.2%, Coreg tablet 3.125 mg b.i.d., Imodium AD p.r.n. loose stools started today, Lidoderm patch to the right shoulder applied at bedtime every night and off every morning, Lyrica capsules 100 mg by mouth twice daily, multivitamin daily, amlodipine 5 mg by mouth daily, omeprazole 20 mg by mouth daily, ondansetron 8 mg by mouth every 8 hours p.r.n. nausea and vomiting. Pred Forte suspension 1% one drop both eyes daily. She is currently on a very lengthy prednisone taper and is currently at 2 mg by mouth every morning, ProAir HFA inhaler 2 puffs every 6 hours p.r.n. shortness of breath or wheezing, trazodone 25 mg by mouth nightly at bedtime, trolamine salicylate cream 10% apply to hands and feet as needed or peripheral neuropathy pain b.i.d. and Voltaren gel 2 grams t.i.d. for pain in the hands and feet. LABORATORY DATA: Chest x-ray shows nothing for failure or obvious pneumonitis. There is mild atelectasis in the left lung base. The vascularity and the heart size appear normal. Chemistry shows sodium 137, potassium 3.8, chloride 102, bicarbonate 22, BUN of 25, creatinine 1, anion gap is 13, glucose 120, AST of 17, ALT of 23, both normal. Glucose 120, total bilirubin is normal at 1.0 with an alkaline phosphatase of 81 also normal. Total protein 7.4 and albumin 3.1 and the estimated GFR is 53. CBC shows a white count is markedly elevated at 22.1, hemoglobin of 14.2, hematocrit 42.7 and a platelet count of 408,000. The differential is pending at the time of this dictation. ASSESSMENT AND PLAN: 1. Leukocytosis with dehydration -- in this COVID pandemic era, I will await the differential results before making final disposition, but she clearly needs to be admitted to the hospital for aggressive hydration and monitoring of her infectious status. If she turns out to be lymphopenic, we will definitely pursue COVID-19 test. If not, we may consider in any way. 2. Moderately severe aortic valve stenosis with a history of hypertension -- we will monitor the patient's blood pressure and try to keep the systolic less than 140 without being excessively aggressive. She does not appear to be septic at the present time, but her blood pressure is significantly lower than usual, so I will hold her blood pressure lowering medicines at the present. 3. Toxic encephalopathy, mild -- The patient is a little more confusion than usual at this time. It is probably a reflection of the underlying infection and dehydration. We will treat the underlying problem as I do not think there is an acute stroke or other neurologic catastrophe. 4. Gastroesophageal reflux disease. Continue current medications. 5. Autoimmune uveitis. We will continue the patient's current medications regimen. [facility] [address] [place] [address] HISTORY AND PHYSICAL Name: COTY LUZ Room #: 170-11 [facility] IN .Selam.#: [id number] Admission: 01/18/20 Attend Phys: Royce Luz MD Discharge: Date of : 34 Report #: [id number] 6. Osteoporosis. 7. Severe peripheral neuropathy in the hands and feet. Continue Lyrica. 8. Possible reactive depression. We will consider assessing for treatment once she recovers from her organic illness and can be better assessed at that time. Differential diagnosis on her presentation includes acute gastroenteritis versus infection from other source. We will aggressively rehydrate at this point and monitor closely. Other considerations would include COVID-19, healthcare-acquired pneumonia living in assisted Care Facility, urinary tract infection, or other occult source. <ELECTRONICALLY SIGNED> By: Royce Luz MD 01/18/202050 29 34 Royce Luz MD /nt
[2020-01-18 21:43] VITALS: BP 116/72
[2020-01-18 22:53] VITALS: BP 132/81
[2020-01-19 01:55] VITALS: BP 119/75
[2020-01-19 06:49] LABS: HEMATOCRIT 39.8 % (37.0-47.0); HEMOGLOBIN 13.3 gm/dL (12.0-15.0); MCHC 33.5 g/dL (28.0-37.0); MCV 95.6 fL (80.0-100.0); RBC 4.16 mil/uL (4.20-5.00); RDW 13.5 % (10.5-14.5); WBC 19.2 thou/uL (4.0-11.0)
[2020-01-19 06:54] VITALS: BP 124/75
[2020-01-19 07:02] LABS: CALCIUM 7.8 mg/dL (8.5-10.1); CREATININE 0.8 mg/dL (0.6-1.0); POTASSIUM 3.4 mmol/L (3.5-5.1)
[2020-01-19 08:01] LABS: URINE BLOOD 1+ (Negative); URINE CLARITY CLOUDY; URINE COLOR YELLOW; URINE GLUCOSE-RANDOM* NEGATIVE (Negative); URINE KETONES 1+ (Negative); URINE LEUKOCYTES-REFLEX NEGATIVE (Negative); URINE NITRITE-REFLEX POSITIVE (Negative); URINE PROTEIN (DIPSTICK) TRACE (Negative); URINE SPECIFIC GRAVITY >= 1.030 (1.005-1.035); URINE UROBILINOGEN 0.2 E.U./dl (0.2-1.0)
[2020-01-19 08:03] LABS: ICTOTEST (BILI CONFIRMATORY) Negative (Negative); URINE BILIRUBIN NEGATIVE (Negative)
[2020-01-19 08:11] LABS: SQUAMOUS 4-10 Moderate /LPF (0-3)
[2020-01-19 08:12] LABS: AMORPHOUS URATES Moderate /LPF (None Seen); BACTERIA-REFLEX >30 Many /HPF (None Seen); CASTS None Seen /LPF (None Seen); URINE RBC None Seen /HPF (0-2); URINE WBC-REFLEX 0-5 Rare /HPF (0-5)
[2020-01-19 08:13] VITALS: BP 125/76
[2020-01-19 14:56] VITALS: BP 115/59
[2020-01-19 19:32] VITALS: BP 141/67
[2020-01-19 23:58] VITALS: BP 115/61
[2020-01-20 04:08] VITALS: BP 128/74
[2020-01-20 04:55] LABS: CALCIUM 7.8 mg/dL (8.5-10.1); CREATININE 0.6 mg/dL (0.6-1.0)
[2020-01-20 05:19] LABS: HEMATOCRIT 36.1 % (37.0-47.0); HEMOGLOBIN 11.9 gm/dL (12.0-15.0); MCH 31.9 pg (26.0-34.0); MCV 96.6 fL (80.0-100.0); RBC 3.74 mil/uL (4.20-5.00); RDW 13.4 % (10.5-14.5); WBC 13.2 thou/uL (4.0-11.0)
[2020-01-20 08:30] VITALS: BP 149/66
--- NOTE | 2020-01-20 12:02 | 2DMMODE ---
[facility] [address] [place] [address] 2 D/M-MODE ECHOCARDIOGRAM Name: COTY LUZ Room #: 203-P ADM IN M.R.#: [id number] Admission: 01/18/20 Attend Phys: Royce Luz MD Discharge: Date of : 34 Report #: [id number] THIS REPORT FOR: cc: Royce Luz MD, Mark A. MD Lammoglia, Francisco J. MD ~ APPROVED REPORT Study performed: 01/20/2020 11:11:30 EXAM: Comprehensive 2D, Doppler, and color-flow Echocardiogram Patient Location: Bedside Room #: 203 Status: routine BSA: 1.67 HR: 86 bpm BP: 149/66 mmHg Rhythm: NSR arrhythmia Other Information Study Quality: Adequate Indications Aortic stenosis. Tachycardia. Hx: HTN, HLP, CVA. 2D Dimensions RVDd: 36.50 mm IVSd: 11.34 (7-11mm) LVOT Diam: 19.22 (18-24mm) LVDd: 40.61 mm PWd: 11.33 (7-11mm) Ascending Ao: 32.38 (22-36mm) LVDs: 25.62 (25-40mm) Aortic Root: 33.21 mm Volumes Left Atrial Volume (Systole) Single Plane 4CH: 59.50 mL Single Plane 2CH: 54.98 mL LA ESV Index: 36.00 mL/m2 Aortic Valve AoV Peak Kirill.: 4.84 m/s AO Peak Gr.: 93.54 mmHg LVOT Max P.74 mmHg AO Mean Gr.: 61.50 mmHg AO V2 Mean: 3.79 m/s LVOT Max V: 1.09 m/s [facility] [email or web address] [address] 2 D/M-MODE ECHOCARDIOGRAM Name: COTY LUZ Room #: 203-P [facility]#: [id number] Admission: 01/18/20 Attend Phys: Royce Luz MD Discharge: Date of : 34 Report #: [id number] AO V2 VTI: 104.80 cm YANET Vmax: 0.65 cm2 Mitral Valve E/A Ratio: 0.7 MV Decel. Time: 209.60 ms MV E Max Kirill.: 1.11 m/s MV A Kirill.: 1.51 m/s MV PHT: 60.78 ms IVRT: 83.04 ms Pulmonary Valve PV Peak Kirill.: 0.68 m/s PV Peak Gr.: 1.86 mmHg Pulmonary Vein P Vein S: 0.42 m/s P Vein A: 0.31 m/s P Vein D: 0.31 m/s P Vein A Dur.: 76.1 msec P Vein S/D Ratio: 1.35 Tricuspid Valve TR Peak Kirill.: 2.77 m/s RAP Estimate: 10.00 mmHg TR Peak Gr.: 31.00 mmHg PA Pressure: 41.00 mmHg Left Ventricle The left ventricle is normal size. There is normal LV segmental wall motion. Mild concentric left ventricular hypertrophy. Left ventricular systolic function is normal. LVEF is 65%. Mild diastolic dysfunction is present (impaired relaxation pattern). Right Ventricle The right ventricle is normal size. The right ventricular systolic function is normal. Atria Left atrium is mildly dilated. The right atrium size is normal. Aortic Valve Aortic valve is heavily calcified. No aortic regurgitation is present. There is severe valvular aortic stenosis. Calculated aortic valve area is 0.7 cm2 with maximum pressure gradient of 94 mmHg and mean pressure gradient of 62 mmHg. Mitral Valve The mitral valve is normal in structure. Moderate mitral annular [address] [address] 2 D/M-MODE ECHOCARDIOGRAM Name: COTY LUZ Room #: 203-P [facility] IN ..#: [id number] Admission: 01/18/20 Attend Phys: Royce Luz MD Discharge: Date of : 34 Report #: [id number] calcification. Mild to moderate mitral regurgitation. No evidence of mitral valve stenosis. Tricuspid Valve The tricuspid valve is normal in structure. Mild to moderate tricuspid regurgitation. Estimated PAP is 40-45mmHg. Pulmonic Valve Pulmonic valve is not well visualized. Mild pulmonic regurgitation. Great Vessels The aortic root is normal in size. The ascending aorta is normal in size. IVC is normal in size and collapses <50% with inspiration. Pericardium There is no pericardial effusion. <Conclusion> The left ventricle is normal size. LVEF is 65%. Left atrium is mildly dilated. Aortic valve is heavily calcified. There is severe valvular aortic stenosis. Calculated aortic valve area is 0.7 cm2 with maximum pressure gradient of 94 mmHg and mean pressure gradient of 62 mmHg. The mitral valve is normal in structure. Moderate mitral annular calcification. Mild to moderate mitral regurgitation. The tricuspid valve is normal in structure. Mild to moderate tricuspid regurgitation. Estimated PAP is 40-45mmHg. Pulmonic valve is not well visualized. Mild pulmonic regurgitation. There is no pericardial effusion. <ELECTRONICALLY SIGNED> By: iBn Santana MD 01/20/20 1200 1200 99 Bin Santana MD /INF
[2020-01-20 17:10] VITALS: BP 143/69
[2020-01-20 19:55] VITALS: BP 152/72
[2020-01-20 23:53] VITALS: BP 114/50
[2020-01-21 03:43] VITALS: BP 140/59
[2020-01-21 05:27] LABS: CREATININE 0.5 mg/dL (0.6-1.0); POTASSIUM 3.8 mmol/L (3.5-5.1)
[2020-01-21 07:33] VITALS: BP 177/80
[2020-01-21 15:32] VITALS: BP 131/63
[2020-01-21 20:15] VITALS: BP 140/71
[2020-01-22 04:15] VITALS: BP 147/62
[2020-01-22 05:22] LABS: HEMATOCRIT 36.2 % (37.0-47.0); HEMOGLOBIN 12.3 gm/dL (12.0-15.0); MCH 32.6 pg (26.0-34.0); MCHC 34.2 g/dL (28.0-37.0); MCV 95.4 fL (80.0-100.0); RBC 3.79 mil/uL (4.20-5.00); RDW 13.1 % (10.5-14.5)
[2020-01-22 05:35] LABS: ALBUMIN 2.4 g/dL (3.4-5.0); CALCIUM 8.2 mg/dL (8.5-10.1); CREATININE 0.6 mg/dL (0.6-1.0); POTASSIUM 3.5 mmol/L (3.5-5.1); TOTAL BILIRUBIN 0.7 mg/dL (<0.1-1.0); TOTAL PROTEIN 5.8 g/dL (6.4-8.2)
[2020-01-22 07:40] VITALS: BP 150/60
--- NOTE | 2020-01-22 12:24 | EKG ---
[facility] [address] [address] [place] [address] ELECTROCARDIOGRAM REPORT Name: COTY LUZ Room #: 203-P ADM IN M.R.#: [id number] Admission: 01/18/20 Attend Phys: Royce Luz MD Discharge: Date of : 34 Report #: [id number] THIS REPORT FOR: cc: Royce Luz MD, Mark A. MD Lundgren,Bertram Tom MD [facility] ~ THIS REPORT FOR: //name// [facility] ED Test Date: 2020-01-18 Test Time: 21:12:50 Pat Name: COTY LUZ Department: Room: [facility] Gender: F Distributor Operator: Nguyễn : 1935 Requested By: Natalie Birch Order Number: [id number] MD: Bertram Leon Measurements Intervals Radiant Rate: 103 P: 35 ND: 143 QRS: -20 QRSD: 161 T: -22 QT: 397 QTc: 520 Interpretive Statements Sinus tachycardia Right bundle branch block Inferior infarct, old Compared to ECG 01/07/2019 09:02:37 No significant change was found Electronically Signed On 01-19-2020 7:57:45 CDT by Bertram Leon [email or web address] <ELECTRONICALLY SIGNED> By: Bertram Leon MD, [facility] 01/19/20 0757 11 11 Bertram Leon MD, [facility] /EPI
[2020-01-22 12:35] VITALS: BP 150/60
[2020-01-22 15:15] VITALS: BP 121/77
[2020-01-22 20:15] VITALS: BP 135/66
[2020-01-23 04:00] VITALS: BP 148/72
[2020-01-23 07:25] VITALS: BP 133/63
[2020-01-23 13:12] VITALS: BP 133/63
[2020-01-23 16:07] LABS: ADENOVIRUS Negative (Negative); INFLUENZA A Negative (Negative); INFLUENZA B Negative (Negative); METAPNEUMOVIRUS Negative (Negative); PARAINFLUENZA 1 Negative (Negative); PARAINFLUENZA 2 Negative (Negative); PARAINFLUENZA 3 Negative (Negative); RHINOVIRUS Negative (Negative); RSV A Negative (Negative); RSV B Negative (Negative)
[2020-01-23 16:20] VITALS: BP 156/91
[2020-01-23 19:22] VITALS: BP 144/67
[2020-01-24 04:23] VITALS: BP 110/61
[2020-01-24 08:15] VITALS: BP 150/76
[2020-01-24 16:55] VITALS: BP 136/85
[2020-01-24 17:55] VITALS: BP 136/85
[2020-01-24 19:53] VITALS: BP 130/66
[2020-01-25 05:17] VITALS: BP 137/61
[2020-01-25 07:30] VITALS: BP 155/73
[2020-01-25 09:14] VITALS: BP 155/73
[2020-01-25] MEDS ORDERED: PACERONE 200 M200 M1 PO (11:30)
[2020-01-25] MEDS ORDERED: FIRVANQ50 MG/1 ML PO (11:30)
[2020-01-25] MEDS ORDERED: COREG 6.25 MG PO (11:31)
[2020-01-25] MEDS ORDERED: DICLOFENAC SODIUM TOP (11:32)
[2020-01-25] MEDS ORDERED: ARTHRITIS PAIN M3 O1 TOP (11:32)
[2020-01-25] MEDS ORDERED: LYRICA 50 MG50 MG PO (11:33)
[2020-01-25] MEDS ORDERED: TYLENOL EXTRA500 MG PO (11:33)
[2020-01-25] MEDS ORDERED: TRAZODONE HCL50 MG PO (11:34)
[2020-01-25] MEDS ORDERED: POTASSIUM CHLORIDE E PO (11:34)
[2020-01-25] MEDS ORDERED: PRED FORTE 1% EY5 M1 OPHTHALMIC (11:35)
[2020-01-25] MEDS ORDERED: BRIMONIDINE TART5 ML OPHTHALMIC (11:36)
[2020-01-25] MEDS ORDERED: TRUSOPT OCUMETE10 ML OPHTHALMIC (11:36)
[2020-01-25] MEDS ORDERED: [UNRECOGNIZED DRUG - OTHER] DISSOLVE (11:37)
[2020-01-25] MEDS ORDERED: FLORANEX GRANU1 EACH PO (11:37)
[2020-01-25] MEDS ORDERED: ZOFRAN 4 MG DISSOLVE (11:37)
[2020-01-25] MEDS ORDERED: ARTIFICIAL TEA1 EACH OPHTHALMIC (11:37)
[2020-01-25] MEDS ORDERED: PANTOPRAZOLE 20 MG PO (11:38)
[2020-01-25] MEDS ORDERED: MUPIROCIN22 GM NASAL (11:38)
[2020-01-25] MEDS ORDERED: LIDOPATCH1 EACH TRANSDERM (11:39)
[2020-01-25] MEDS ORDERED: Unicomplex M Tablet PO (11:39)
[2020-01-25] MEDS ORDERED: VANCOMYCIN1 GM/2002 IV (13:38)
--- NOTE | 2020-01-26 08:19 | D ---
[facility] [place] [address] DISCHARGE SUMMARY Name: COTY LUZ Room #: 203-P [facility] IN M.R.#: [id number] Admission: 01/18/20 Attend Phys: Royce Luz MD Discharge: 01/25/20 Date of : 34 Report #: [id number] THIS REPORT FOR: cc: Royce Luz MD, Mark A. MD Angles, Mark A. MD ~ THIS REPORT FOR: //name// CC: Josue Solorio MD DATE OF SERVICE: 01/25/2020 HOSPITAL COURSE: The patient is an 84-year-old female, resident of [facility] who developed diarrhea and dehydration couple of days prior to admission. She was brought to the [facility] Emergency Room via [facility] ambulance. Workup revealed left lower lobe pneumonia. She underwent an extensive workup and was negative for COVID-19 and the respiratory viral panel. She did have a positive methicillin-resistant Staphylococcus aureus nasal swab and her Legionella and Strep antigens were negative also. In addition, her stool tested positive for Clostridium difficile and so she was treated with both oral and intravenous vancomycin to treat those 2 infections. While on telemetry, she was noted to have episodes of rapid atrial fibrillation with a heart rate in the 150s range. Cardiology consult was obtained. A followup echocardiogram to when she had about a year ago showed that her aortic valve stenosis, which previously measured at 1.0 square cm, was now worsened to 0.7 square cm. She definitely qualifies as a severe aortic valve stenosis. I discussed the case by phone with Dr. Michael Zuleta who felt that the prior history of hemorrhagic stroke, left the patient at increased risk with the use of anticoagulant therapies and therefore recommended aggressive management and hopefully prevention of the atrial fibrillation. She was started on amiodarone loading dose of 200 mg twice a day over the next 3 days and the telemetry strip showed no improvement, but no worsening either. She will continue the loading regimen for a total of 2 weeks before decreasing the dose to 200 mg by mouth daily. The patient was evaluated by Pulmonary Medicine for pneumonia, by Infectious Diseases for the related infections and Cardiology. She was also seen by Physical Medicine and Rehab for evaluation of her general debility. She has underlying left hemiparesis from her prior stroke. Dr. Tsang felt she would be a good candidate for a [address] [place] [address] stay. At the time of discharge, [place] [address] DISCHARGE SUMMARY Name: COTY LUZ Room #: 203-P [facility] IN [facility].#: [id number] Admission: 01/18/20 Attend Phys: Royce Luz MD Discharge: 01/25/20 Date of : 34 Report #: [id number] going to the [address] [place] [address] Rehab Unit for continuing rehab needs until she is able to return back to [facility]. DISCHARGE DIAGNOSES: As follows: 1. Healthcare-acquired pneumonia, positive for methicillin-resistant Staphylococcus aureus and nasal swab. 2. Toxic encephalopathy, which is transient. 3. Clostridium difficile enterocolitis. 4. Paroxysmal atrial fibrillation. 5. Severe aortic valve stenosis. 6. Oropharyngeal dysphagia. 7. Hypertension. 8. Severe malnutrition (albumin 2.4). 9. 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 11. Idiopathic peripheral neuropathy. 12. Gastroesophageal reflux disease. 13. Osteoarthritis of the lumbar spine. 14. Bilateral lower extremity venous insufficiency, chronic. 15. General debility. DISCHARGE MEDICATIONS: Will be as follows: 1. Amiodarone 200 mg by mouth twice daily for a total of 2 weeks and then 200 mg daily thereafter, albuterol HFA inhaler 2 puffs every 4-6 hours as needed for wheezing, vancomycin 125 mg orally 4 times daily. 2. Vancomycin intravenous 1000 mg IV q. 12 hours with followup at the pharmacy, 3. Coreg 6.25 mg twice daily. 4. Diclofenac sodium topical gel t.i.d. to right shoulder and sore joints. 5. Trolamine salicylate cream t.i.d. to the right shoulder. 6. Acetaminophen 1000 mg p.o. 3 times daily. 7. Pregabalin 100 mg by mouth twice daily. 8. Trazodone 25 mg by mouth nightly at bedtime. 9. Potassium chloride 20 mEq by mouth daily. 10. Prednisolone acetate 1% eyedrops 1 drop in each eye twice daily. 11. Brimonidine tartrate 1 drop each eye twice daily. 12. Dorzolamide hydrochloride 1 drop each eye twice daily. 13. Artificial Tears 1 drop each eye 3 times daily. 14. Floranex granules one packet twice daily with meals x 30 days. 15. Zofran 8 mg ODT on the tongue every 8 hours as needed for nausea. 16. Protonix 40 mg by mouth daily. 17. Mupirocin nasal ointment 1 g swabbed in each nostril b.i.d. before meals x 14 days. 18. Lidoderm patch to the right shoulder every evening at bedtime and off in the morning. 19. Multivitamin by mouth once daily. [address] [address] DISCHARGE SUMMARY Name: COTY LUZ Room #: 203-P DIS IN M.R.#: [id number] Admission: 01/18/20 Attend Phys: Royce Luz MD Discharge: 01/25/20 Date of : 34 Report #: [id number] The patient is going to the rehab unit and will be followed by me and managed by Dr. Tsang and beginning physical therapy, occupational therapy and speech therapy while there. Please note that her diet is a mechanical soft (chopped) with normal thin liquids. <ELECTRONICALLY SIGNED> By: Royce Luz MD 01/26/20 0819 [id number] Royce Luz MD /nt
== END 2020-01-25 15:48 | DRG 177 ==
LOC: ER 18:11 → 2N 18:44 → 3W 18:44 → EROBS 18:44 → 3W 21:44 → 2N 01-19 21:28
PROVIDERS: Emergency Medicine Emergency Medical Services; Internal Medicine Pulmonary Disease; ADMIT Internal Medicine
DX: J69.0 Pneumonitis due to inhalation of food and vomit (principal); G92 Toxic encephalopathy; E43 Unspecified severe protein-calorie malnutrition; J96.01 Acute respiratory failure with hypoxia; R65.11 Systemic inflammatory response syndrome (SIRS) of non-infectious origin with acute organ dysfunction; H20.9 Unspecified iridocyclitis; A04.72 Enterocolitis due to Clostridium difficile, not specified as recurrent; I69.354 Hemiplegia and hemiparesis following cerebral infarction affecting left non-dominant side; H20.00 Unspecified acute and subacute iridocyclitis; N39.0 Urinary tract infection, site not specified; D72.829 Elevated white blood cell count, unspecified; K21.9 Gastro-esophageal reflux disease without esophagitis; E86.0 Dehydration; I35.0 Nonrheumatic aortic (valve) stenosis; I48.0 Paroxysmal atrial fibrillation; R13.12 Dysphagia, oropharyngeal phase; I10 Essential (primary) hypertension; G60.9 Hereditary and idiopathic neuropathy, unspecified; M47.816 Spondylosis without myelopathy or radiculopathy, lumbar region; I87.2 Venous insufficiency (chronic) (peripheral); M81.0 Age-related osteoporosis without current pathological fracture; R19.7 Diarrhea, unspecified; E87.6 Hypokalemia; I45.10 Unspecified right bundle-branch block; E78.5 Hyperlipidemia, unspecified; M35.3 Polymyalgia rheumatica; Z20.828 Contact with and (suspected) exposure to other viral communicable diseases; M19.90 Unspecified osteoarthritis, unspecified site; Z79.01 Long term (current) use of anticoagulants; Z68.26 Body mass index [BMI] 26.0-26.9, adult; Z83.6 Family history of other diseases of the respiratory system; Z80.6 Family history of leukemia; Z88.2 Allergy status to sulfonamides; Z88.8 Allergy status to other drugs, medicaments and biological substances; Z90.89 Acquired absence of other organs; Z90.710 Acquired absence of both cervix and uterus; Z79.899 Other long term (current) drug therapy
CPT/HCPCS: 10081; 10879

== ENCOUNTER 2020-01-22 09:22 | Inpatient (IN) | payer OTHER ==
[~2020-01-22] VITALS: Ht 165.1 cm; Wt 73.0 kg
[~2020-01-22 09:22] MED LIST changes: +ARTIFICIAL TEAR1510 OPHTHALMIC; +ASPERCREME 1141.7 GM TOP; +AZOPT OPHTH1 %/10 M1 OPHTHALMIC; +BRIMONIDINE 0.110 ML OP; +CARVEDILOL12.5 MG PO; +LOPERAMIDE 2 MG2 M1 PO; +LYRICA100 MG PO; +MULTIVITAM9 MG/15 M1 PO; +NORVASC 2.5 MG2.5 M1 PO; +OMEPRAZOLE 20 M20 M1 PO; +ONDANSETRON ODT8 MG PO; +PRED FORTE 1% EY5 M1 LT. EYE; +PROAIR HFA8.5 GM INH; +TRAZODONE HCL50 MG PO; +VOLTAREN GEL 1100 G2 TOP
[2020-01-25] MEDS ORDERED: FIRVANQ50 MG/1 ML PO (11:30)
[2020-01-25] MEDS ORDERED: PACERONE 200 M200 M1 PO (11:30)
[2020-01-25] MEDS ORDERED: COREG 6.25 MG PO (11:31)
[2020-01-25] MEDS ORDERED: DICLOFENAC SODIUM TOP (11:32)
[2020-01-25] MEDS ORDERED: ARTHRITIS PAIN M3 O1 TOP (11:32)
[2020-01-25] MEDS ORDERED: TYLENOL EXTRA500 MG PO (11:33)
[2020-01-25] MEDS ORDERED: LYRICA 50 MG50 MG PO (11:33)
[2020-01-25] MEDS ORDERED: POTASSIUM CHLORIDE E PO (11:34)
[2020-01-25] MEDS ORDERED: TRAZODONE HCL50 MG PO (11:34)
[2020-01-25] MEDS ORDERED: PRED FORTE 1% EY5 M1 OPHTHALMIC (11:35)
[2020-01-25] MEDS ORDERED: TRUSOPT OCUMETE10 ML OPHTHALMIC (11:36)
[2020-01-25] MEDS ORDERED: BRIMONIDINE TART5 ML OPHTHALMIC (11:36)
[2020-01-25] MEDS ORDERED: ZOFRAN 4 MG DISSOLVE (11:37)
[2020-01-25] MEDS ORDERED: ARTIFICIAL TEA1 EACH OPHTHALMIC (11:37)
[2020-01-25] MEDS ORDERED: [UNRECOGNIZED DRUG - OTHER] DISSOLVE (11:37)
[2020-01-25] MEDS ORDERED: FLORANEX GRANU1 EACH PO (11:37)
[2020-01-25] MEDS ORDERED: MUPIROCIN22 GM NASAL (11:38)
[2020-01-25] MEDS ORDERED: PANTOPRAZOLE 20 MG PO (11:38)
[2020-01-25] MEDS ORDERED: Unicomplex M Tablet PO (11:39)
[2020-01-25] MEDS ORDERED: LIDOPATCH1 EACH TRANSDERM (11:39)
[2020-01-25] MEDS ORDERED: VANCOMYCIN1 GM/2002 IV (13:38)
--- NOTE | 2020-01-25 15:29 | NUR ---
pt suppose to dc to up to acute rehab this afternoon. unable to visit with pt via phone call, she not answer phone in her room. stevie has had 5n acute rehab in past almost a year ago in rt stroke. chart review, she been to skilled rehab at [facility] then dc to [facility]. she has family support (14). will need to found out if she has apartment on lower level and if she uses elevator and if she still uses wheel chair (dme ) that's she uses. will cont following as needed for dc needs. there is [facility] at [facility], assistance with bathing and medication. will see what level of GROUP HOME she was receiving.
[2020-01-25 16:00] VITALS: BP 171/69
[2020-01-25 17:00] VITALS: BP 171/69
[2020-01-25 18:50] VITALS: BP 142/63
--- NOTE | 2020-01-25 19:33 | NUR ---
ASSUME PT CARE AT 1600. PT CAME FROM 203 TO ROOM 510 FORTOXIC ENCEPHALOPATHY, IMPROVING LATE EFFECT CVA WITH L HEMEPARESIS. 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 REPORTS HAD 2X SOFT SMALL BM PRIOR ADMIT TO 5N. PATIENT IS ALERT AND ORIENTED X4. ABLE TO VOICE HER OWN NEEDS. CONT BLADDER. REQUESTS FOR BEDPAN 3X DURING ADMISSION PROCESS. REASSESSMENT PER CHART, HAS HEART MURMUR. LUNG SOUND CLEAR AND DIMINISHED ON BASES. C/O SOB AT TIME. CALLED RT TO GIVE PT PRN BREATHING TX. VS TAKEN B/P HIGH SEE MEDITECH. CARDIZEM AND CARVEDILOL AND ALL EVENING MEDS GIVEN. CONTINUE TO BE ON VACOMYCIN PO FOR C-DIFF AND IV ABT WELL. RIGHT FA IV DRESSING CHANGED, PATENT AND INTACT AT THIS MOMENT. C/O RIGHT SHOULDER PAIN 4/10, TYLENOL AND LYRICA GIVEN SCHEDULE AND VOTAREN GEL APPLIED. PT HAS LEFT SIDE WEAKNESS, LEFT HAND FLACCID ELEVATED ON PILLOW HAS SOME EDEMA ON LEFT FOOT. SKIN INTACT HAS SOME REDNESS ON BUTTOCK D/T HAVING URINATION FREQUENLTY. APPLIED BARRIER CREAM AND TURN Q2HR IN BED. PT NOT ABLE TO SIGN CONSENT AND SAID ANAID HER SON WILL SIGN TOMORROW. NOTIFIED DR. BULLOCK, AND HE SAID HE WILL COME TO SIGN TOMORROW. ALSO NOTIFIED DOCTOR THAT PT HAS FREQUENCY URINATION. ADMISSION REASSESSMENT CHART. PHYSICIAN CONSULTS WERE NOTIFIED. OFFERED SUPPORTIVE CARE AND SPIRITUAL CARE. DISCUSSED ABOUT REHAB SCHEDULE WITH PT THAT WILL GET P.T./ O.T. AND [place].T. [place] IN A.M. PT ATE 20% DINNER, BUT DRANK ALL HER ENSURE. TURNED CHANNEL 40 AND PT ABLE TO ATTEND MASS ONLINE. COMMUNICATED WITH PHARMACY TO SEND NEW LABELS FOR HER EYE DROPS AND TOPICAL MEDICATION. FALL PRECAUTION IN PLACE, CALL LIGHT WITHIN REACH. GAVE REPORT TO NIGHT NURSE TO CONTINUE TO MONITOR.
--- NOTE | 2020-01-26 01:45 | NUR ---
PT ALERT AND ORIENTED X 4. LEFT SIDE FLACCID. VERBALIZES PAIN IN RIGHT SHOULDER. LIDOCAINE PATCH APPLIED. RFA SALINE LOCK INTACT AND PATENT. IV ANTIBIOTICS GIVEN ORDERED. PT TURNED Q2H. BED ALARM ON FOR SAFETY. PT APPEARS TO BE SLEEPING ON HOURLY ROUNDS.
[2020-01-26 06:32] LABS: HEMATOCRIT 36.5 % (37.0-47.0); HEMOGLOBIN 12.2 gm/dL (12.0-15.0); MCH 32.1 pg (26.0-34.0); MCHC 33.5 g/dL (28.0-37.0); MCV 95.7 fL (80.0-100.0); RBC 3.82 mil/uL (4.20-5.00); RDW 13.3 % (10.5-14.5)
[2020-01-26 06:43] LABS: CALCIUM 8.8 mg/dL (8.5-10.1); CREATININE 0.6 mg/dL (0.6-1.0); POTASSIUM 3.8 mmol/L (3.5-5.1)
[2020-01-26 08:00] VITALS: BP 181/92
[2020-01-26 09:30] VITALS: BP 154/100
--- NOTE | 2020-01-26 13:15 | NUR ---
team meeting, recommendation: report family going to bring in stevie left hand splint. last time she was on 5n acute rehab 12/2018. re team, wanting to work on transfer, clarification on how she was being transfer and if her own wheel chair can be bring up here. with possible dc on 10-14 day back [facility] with [facility] (pt, ot, st and nursing).
--- NOTE | 2020-01-26 16:42 | NUR ---
ASSUMED CARES AT 0700. PT AWAKE, ALERT AND ORIENTED*4. C/O RACHEL SHOULDER PAIN, LIDOCAINE PATCH APPLIED TO RIGHT SHOULDER, VOLTAREN GEL APPLIED TO LEFT SHOULDER AND TYLENOL ADMINISTERED NEEDED. BP ELEVATED THIS AM, BP LOWERING MEDS ADMINISTERED. PT HAS BLE EDEMA, LEFT MORE THAN RIGHT, EXTREMITIES ELEVATED. IV ON RIGHT ARM REMAINS INTACT AND PATENT, IV ANTIBIOTICS ADMINISTERED ORDERED. PT VOIDING FREQUENTLY, URINE IS LIGHT YELLOW AND CLEAR. *2 LOOSE STOOLS, DARK GREEN. SPECIAL ISOLATION MAINTAINED. PT UP WITH 1-2 MAX ASSIST, PIVOT TRANSFER. Q1H VISUAL CHECKS. CALL LIGHT WITHIN REACH. FALL PRECAUTIONS IN PLACE
[2020-01-26 19:50] VITALS: BP 180/85
--- NOTE | 2020-01-26 23:29 | NUR ---
TOOK OVER PT CARE AT 1900. ASSESSMENT DONE AND VSS EXCEPT ELEVATED BP OF 180/85, HR 80. WAS STARTED ON NEW BP MED COREG TODAY. SCHEDULED MEDS GIVEN AND WELL TOLERATED. DR. RAMÍREZ HERE TO SEE HIS MOM/BROUGHT UP HER WC. FALL PRECAUTIONS IN PLACE. HOURLY ROUNDING. CALL LIGHT IN REACH. WILL CONTINUE TO MONITOR.
[2020-01-27 08:00] VITALS: BP 132/63
[2020-01-27 12:19] LABS: URINE BILIRUBIN NEGATIVE (Negative); URINE BLOOD NEGATIVE (Negative); URINE CLARITY CLEAR; URINE COLOR YELLOW; URINE GLUCOSE-RANDOM* NEGATIVE (Negative); URINE KETONES NEGATIVE (Negative); URINE LEUKOCYTES-REFLEX NEGATIVE (Negative); URINE NITRITE-REFLEX NEGATIVE (Negative); URINE PROTEIN (DIPSTICK) NEGATIVE (Negative); URINE UROBILINOGEN 0.2 E.U./dl (0.2-1.0)
--- NOTE | 2020-01-27 18:04 | NUR ---
ASSUMED CARE AT 0700, PT A&O X 4, NO ACUTE DISTRESS DURING SHIFT. VSS O2 ON RA. PT PAIN CONTROLLED WITH FARRUKH TYLENOL. IV TO RFA FLUSHES WELL. TOLERATES MEDS WITH APPLESAUCE. PARTICIPATED IN FARRUKH THERAPIES. ISOLATION PRECAUTIONS CONTINUED FOR C-DIFF/MRSA. CONTINENT OF B&B, SEVERAL BM TODAY, URINE SAMPLE SENT TO LAB. LLE ELEVATED FOR EDEMA. RESTING IN BED, CALL LIGHT WITHIN REACH, WILL CONTINUE TO MONITOR PER POC.
[2020-01-27 21:50] VITALS: BP 116/68
--- NOTE | 2020-01-28 00:45 | NUR ---
PT ASSESSMENT COMPLETED AND VSS. MEDS GIVEN ORDERED AND WELL TOLERATED. FALL PRECAUTIONS IN PLACE. ASST WITH REPOSITION FOR COMFORT. CREAMS APPLIED ORDERED. EYE DROPS GIVEN. SPECIAL CONTACT ISOLATION FOLLOWED. PT INC OF LARGE AMOUNT OF URINE AFTER SLEEPING. SCDS ON. SMALL SMEAR BM AT HS. PT DENIES NEEDS. SLEEPING WELL. WILL CONTINUE TO MONITOR FREQUENTLY. VERY PLEASANT PT.
[2020-01-28 08:00] VITALS: BP 141/73
--- NOTE | 2020-01-28 16:40 | NUR ---
ASSUMED CARE AT O7OO, PT A&O X 4, NO ACUTE DISTRESS DURING SHIFT. VSS, O2 ON RA. PAIN CONTROLLED WITH FARRUKH TYLENOL AND VOLTERAN GEL. PT PARTICIPATED IN FARRUKH THERAPIES. L ARM AND L LEG ELEVATED FOR EDEMA. MEDS GIVEN WITH YOGHURT, TOLERATED WELL. CONTINENT OF B&B USES BEDPAN, SEVERAL BM'S TODAY. RESTING IN BED, CALL LIGHT WITHIN REACH, WILL CONTINUE TO MONITOR PER POC.
--- NOTE | 2020-01-28 19:52 | NUR ---
POST VOID RESIDUAL DONE, 71ML NOTED.
[2020-01-28 21:00] VITALS: BP 98/62
--- NOTE | 2020-01-29 00:33 | NUR ---
TOOK OVER CARES AT 1900. PT ASSESSMENT DONE AND VSS. MEDS/CREAMS AND EYE DROPS GIVEN AND WELL TOLERATED. BILAT ARMS ELEVAATED ON PILLOWS/LEFT SIDE DUE TO FLACCIDITY AND THE RIGHT SIDE DUE TO REDDENED ELBOW. OPTIFOAM DRESSING ALSO PLACED ON AREA TO PAD IT PER DR. RAMÍREZ REQUEST. ISOLATION MAINTAINED FOR MRSA/CDIFF. FALL PRECAUTIONS IN PLACE. HOURLY ROUNDING. CALL LIGHT IN REACH. WILL CONTINUE TO MONITOR.
[2020-01-29 07:45] VITALS: BP 143/74
--- NOTE | 2020-01-29 18:30 | NUR ---
ASSUMED CARES AT 0700. REPORTS SLEPT GOOD LAST NIGHT. PT AWAKE, ALERT AND ORIENTEDX4. C/O RIGHT SHOULDER PAIN, VOLTAREN GEL APPLIED TO R SHOULDER AND TYLENOL ADMINISTERED ORDERED. PT HAS BLE EDEMA, LEFT MORE THAN RIGHT, THOMAS HOSE APPLIED DURING DAY AND OFF NOW. EXTREMITIES ELEVATED. IV ON RIGHT ARM REMAINS INTACT AND PATENT. IV ABT DISCONTINUE. PT VOIDING FREQUENTLY, URINE IS LIGHT YELLOW AND CLEAR. *3 LIQUID STOOLS, AND 1X LARGE LOOSE STOOL. DARK GREEN. CONTINUE TO BE ON C-DIFF SPECIAL ISOLATION MAINTAINED. PT UP WITH 1-2 MAX ASSIST, PIVOT TRANSFER. OFFERED SUPPORTIVE CARE. REASSESSMENT PER CHART. EYE DROPS AND TOPICAL MEDS GIVEN ORDERED. ELBOWS ELEVATED ON PILLOWS. SCD APPLIED. ASSISTED TO BATHROOM FREQUENTLY. PT CALLS FOR TOILETING, SOMETIMES CONTINENT AND SOMETIMES NOT ABLE TO HOLD. PT UP AND PARTICIPATED WITH THERAPISTS. Q1H VISUAL CHECKS. CALL LIGHT WITHIN REACH. GAVE REPORT TO NIGHT NURSE TO CONTINUE TO MONITOR. FALL PRECAUTIONS IN PLACE. CALL LIGHT WITHIN REACH.
[2020-01-29 20:00] VITALS: BP 119/69
--- NOTE | 2020-01-30 05:17 | NUR ---
ASSUMED PT CARE AROUND 193. AXOX4. ISO FOR MRSA AND CDIFF. ASSISTED WITH ADLs. BLE ELEVATED WITH PIILLOWS. NO S/S ACUTE DISTRESS NOTED OR REPORTED AT THIS TIME. WILL CONT TO MONITOR FOR ANY CHANGES IN CONDITION.
--- NOTE | 2020-01-30 13:45 | NUR ---
ASSUMED CARES AT 0700. PT AWAKE, ALERT AND ORIENTED*4. VITALS STABLE. C/O PAIN ON RIGHT SHOULDER AND LEFT HEEL DISCOMFORT, PAIN MEDICATION ADMINISTERED NEEDED AND HEELS OFFLOADED. AIRLOSS MATTRESS IN PLACE. CONTINUES TO HAVE LEFT SIDED HEMIPARESIS. CONTINUES TO HAVE FREQUENCY WITH URINATION, URINE IS LIGHT YELLOW AND CLEAR WITH NO FOUL ODOR. UNFORMED BM TODAY NO DIARRHEA, SPECIAL ISOLATION MAINTAINED. PT UP WITH MAX ASSIST, PIVOT TRANSFER TO CHAIR AND TOLERATED WELL. Q1H VISUAL CHECKS. CALL LIGHT WITHIN REACH. FALL PRECAUTIONS IN PLACE
[2020-01-30 19:50] VITALS: BP 150/65
--- NOTE | 2020-01-31 02:18 | NUR ---
ASSUMED CARE OF PT AT 1915. PT IS A&OX4. IS ON ROOM AIR. REPORTS PAIN IN RIGHT SHOULDER THAT IS BEING MANAGED WITH TRANSDERAMAL MEDICATION & OTHER THERAPUETIC THECNIQUES. IS STABLE. IS TURNED Q2H. IS INCONTINENT TO B&B, BUT IS ABLE TO CALL OUT FOR ASSISTANCE. IS OFFERED THE BEDPAN TRIVEDI WITH HOURLY ROUNDING. REMAINS ON CONTACT ISOLATION PRECAUTIONS FOR C-DIFF. LABS & VITALS REVIEWED. FALL PRECAUTIONS MAINTAINED. THIS SHIFT. WILL CONTINUE TO MONITOR.
[2020-01-31 08:03] VITALS: BP 140/58
--- NOTE | 2020-01-31 17:06 | NUR ---
ASSUMED CARE AT 0700, PT A&O X 4, NO ACUTE DISTRESS DURING SHIFT. VSS, 02 ON RA. PT ON [facility] TYLENOL FOR R SHOULDER PAIN. MEDS TOLERATED WHOLE WITH WATER. ISO PRECAUTIONS FOR C-DIFF AND MRSA CONTINUED. PT ATE BREAKFAST IN DINING ROOM. INCONTINENT OF B&B AT TIMES, SEVERAL SMALL LOOSE BM TODAY. ZGUARD FOR SACRAL REDNESS. RESTING IN BED, CALL LIGHT WITHIN REACH, WILL CONTINUE TO MONITOR PER POC.
[2020-01-31 19:47] VITALS: BP 140/63
--- NOTE | 2020-02-01 02:03 | NUR ---
ASSUMED CARE AT APPROX 1900 EVENING 01/30. PT DOZING OFF AND ON AT CHANGE OF SHIFT. PT REMAINS IN ISOLATION FOR C-DIFF AND MRSA. PT ASSISTED WITH BEDPAN AT HS. PT PLEASANT AND COOPERATIVE. PT TOOK HS MEDS WITH PUDDING TOLERATING WELL. PT APPEARS TO BE SLEEPING SOUNDLY WITH HOURLY ROUNDING CHECKS. BED ALARM ON AND CALL LIGHT IN REACH. WILL CONTINUE TO MONITOR.
[2020-02-01 04:10] LABS: HEMATOCRIT 36.1 % (37.0-47.0); HEMOGLOBIN 12.1 gm/dL (12.0-15.0); MCH 32.2 pg (26.0-34.0); MCHC 33.4 g/dL (28.0-37.0); MCV 96.4 fL (80.0-100.0); RBC 3.75 mil/uL (4.20-5.00); RDW 13.7 % (10.5-14.5)
[2020-02-01 04:20] LABS: CALCIUM 8.9 mg/dL (8.5-10.1); CREATININE 0.7 mg/dL (0.6-1.0); POTASSIUM 3.9 mmol/L (3.5-5.1)
--- NOTE | 2020-02-01 19:47 | NUR ---
ASSUMED CARE AT 0700, PT A&O X 4, NO ACUTE DISTRESS DURING SSHIFT. VSS O2 ON RA. PT ON FARRUKH TYLENOL AND VOLTERAN GEL FOR R SHOULDER PAIN. TOLERATES MEDS WHOLE ONE BY ONE WITH WATER. PARTICIPATEDD IN FARRUKH THERAPIES. INCONTINENT OF B&B AT TIMES, HAS SOME STRESS INCONTINENCE BUT CALLS FOR BEDPAN APPROPRIATELY. 3 SMALL LOOSE BM'S TODAY. RESTING IN BED, CALL LIGHT WITHIN REACH, WILL CONTINUE TO MONITOR PER POC.
[2020-02-01 19:50] VITALS: BP 154/85
--- NOTE | 2020-02-02 00:35 | NUR ---
PT ASSESSMENT COMPLETED AND VSS. MEDS GIVEN ORDERED AND WELL TOLERATED. CREAMS AND EYE DROPS GIVEN. ASST WITH REPOSITION FOR COMFORT USING PILLOWS. SCDS ON. INC OF LARGE AMOUNTS OF URINE. SMALL BM AT HS. [facility] PROVIDED. BARRIER CREAM APPLIED. SPECIAL CONTACT ISOLATION FOLLOWED. SLEEPING WELL. WILL CONTINUE TO MONITOR FREQUENTLY.
[2020-02-02 06:57] LABS: ALBUMIN 2.9 g/dL (3.4-5.0); CALCIUM 8.7 mg/dL (8.5-10.1); CREATININE 0.7 mg/dL (0.6-1.0); POTASSIUM 4.2 mmol/L (3.5-5.1); TOTAL BILIRUBIN 0.9 mg/dL (<0.1-1.0); TOTAL PROTEIN 6.4 g/dL (6.4-8.2)
[2020-02-02 07:19] VITALS: BP 143/73
--- NOTE | 2020-02-02 10:55 | NUR ---
ASSUMED CARE AT 0700, REPORTS SLEPT GOOD LAST NIGHT. PT A&O X 4, FORGETFUL AT TIME. VSS, 02 ON RA. C/O RIGHT SHOULDER PAIN. PT ON FARRUKH TYLENOL AND VOLTARENE GEL. MEDS TOLERATED WHOLE WITH WATER. ISO PRECAUTIONS FOR C-DIFF AND MRSA CONTINUED. PT ATE BREAKFAST IN DINING ROOM. INCONTINENT OF B&B AT TIMES. HAD ONE LARGE LOOSE STOOL THIS AM. DR. BABB SAID GO AHEAD AND GIVE HER PRN IMMODIUM BECAUSE DOCTOR THINKS PT MAY HAS IBS. ZGUARD FOR SACRAL REDNESS. TURN Q2HR. DISCUSSED WITH PT ABOUT GETTING UP FOR EAT MEALS AND USES BSC DURING DAY. PT WAS UP IN WC THIS AM. RESTING IN BED NOW AND WILL BE UP FOR LUNCH.UP WITH MAX OF 1X ASSIST AND BSC WITH 2X. CALL LIGHT WITHIN REACH, WILL CONTINUE TO MONITOR PER POC.
--- NOTE | 2020-02-02 10:57 | NUR ---
vendor form, list choices provided to bedside nurse to leave with stevie and family for resources outside hospital
[2020-02-02 20:25] VITALS: BP 143/61
--- NOTE | 2020-02-03 08:20 | NUR ---
PROGRESS PT ALERT AND ORIENED TO SELF STAFF, SITUATION AND PLACE, A LITTLE OFF ON TIME. REPORTS PAIN TO RIGHT SHOULDER. TOLERATING DIET. HAD 2 KIARA DARK LIQUID STOOLS AND VOIDED IN BEDPAN X 3 CALLS APPROPRIAELY. SKIN C/D/I NO AREAS OF BREAKDOWN NOTED. PT REPOSITIONED Q2HRS SLEPT MOST OF NOC CLOTHES WASHED IN DRYER.
[2020-02-03 08:43] VITALS: BP 158/86
--- NOTE | 2020-02-03 08:48 | NUR ---
ASSUMED CARE AT 0700, REPORTS SLEPT GOOD LAST NIGHT. REQUEST FOR BEDPAN. ASSISTED PT TO BSC WITH 2X ASSIST. HAD MODERATE LOOSE STOOL. PT A&O X 4, FORGETFUL AT TIME. VSS, 02 ON RA. C/O RIGHT SHOULDER PAIN. PT ON FARRUKH TYLENOL AND VOLTARENE GEL. MEDS TOLERATED WHOLE WITH WATER. ISO PRECAUTIONS FOR C-DIFF AND MRSA CONTINUED. LAST DOSE OF VANCOMYCIN GIVEN NOW. CONT OF B&B. PRN IMMODIUM GIVEN WITH MORNING MEDS. TAKE MED WHOLE ONE AT THE TIME. EYES DROPS AND TOPICAL MEDS GIVEN ORDERED. SORE ON RIGHT ELBOW COVERED WITH OPTIFOAM. ZGUARD FOR SACRAL REDNESS. TURN Q2HR. DISCUSSED WITH PT ABOUT GETTING UP FOR EAT MEALS AND USES BSC DURING DAY. PT WAS UP IN WC THIS AM. EATING WITH ST AT DINNING ROOM. UP WITH MAX OF 1X ASSIST AND BSC WITH 2X. WILL CONTINUE TO FOLLOW UP WITH PLANS OF CARE. OFFERED SUPPORTIVE CARE. REASSESSMENT PER CHART. DISCUSSED WITH PHYSICAL THERAPIST TO CHECK ORTHOSTATIC B/P LYING AND STANDING B/P FOR DR. KING. WILL CONTINUE TO FOLLOW UP.
--- NOTE | 2020-02-03 11:30 | NUR ---
FAXED REFERRAL TO [facility] SPOKE WITH [facility] IN INTAKE SHE RECEIVED REFERRAL AND WILL ACCEPT AT DC. ANTICIPATE DC 02/08.
[2020-02-03 11:32] VITALS: BP 158/86
--- NOTE | 2020-02-04 04:09 | NUR ---
assumed care at approx 1900 evening 02/02. pt remains in isolation as ordered. pt awake somewhat dozing at change of shift. pt requested bedpan tonight and voiding small amts clear, yellow urine. pt took hs meds with water tolerating well. pt appears to be sleeping soundly with hourly rounding checks. bed alarm on and call light in reach. will continue to monitor.
[2020-02-04 07:55] VITALS: BP 145/75
--- NOTE | 2020-02-04 16:09 | NUR ---
ASSUMED CARES AT 0700. PT AWAKE, ALERT AND ORIENTED*4. C/O RIGHT SHOULDER PAIN, VOLTAREN GEL APPLIED AND ACETAMINOPHEN ADMINISTERED SCHEDULED. PT C/O NAUSEA AND HAD A LARGE EMESIS THIS AM, ZOFRAN ADMINISTERED PER ORDER. PT HAS NOT HAD ANY OTHER EMESIS SINCE AND DENIES NAUSEA. ISOLATION MAINTAINED. DRESSING ON RIGHT ELBOW CHANGED. PT REPOSITIONED Q2H. CONTINUES TO HAVE BLE EDEMA, EXTREMITIES ELEVATED. UP WITH MAX ASSIST, GB AND W/C. WORKED WITH THERAPY AND TOLERATED WELL. Q1H VISUAL CHECKS. CALL LIGHT WITHIN REACH. FALL PRECAUTIONS IN PLACE
[2020-02-04 19:50] VITALS: BP 137/61
--- NOTE | 2020-02-05 00:56 | NUR ---
TOOK OVER PT CARE AT 1900. ASSESSMENT DONE AND VSS. MEDS/EYE DROPS/CREAMS GIVEN AND WELL TOLERATED. SLEEPING WELL OVERNIGHT. HOURLY ROUNDING. CALL LIGHT IN REACH. WILL CONTINUE TO MONITOR.
[2020-02-05 08:10] LABS: HEMATOCRIT 34.3 % (37.0-47.0); HEMOGLOBIN 11.6 gm/dL (12.0-15.0); MCH 32.6 pg (26.0-34.0); MCHC 33.7 g/dL (28.0-37.0); MCV 96.8 fL (80.0-100.0); PLATELET COUNT 279 thou/uL (150-400); RBC 3.55 mil/uL (4.20-5.00); RDW 14.2 % (10.5-14.5); WBC 5.9 thou/uL (4.0-11.0)
[2020-02-05 08:30] VITALS: BP 141/63
[2020-02-05 08:50] LABS: ALBUMIN 2.9 g/dL (3.4-5.0); CALCIUM 8.6 mg/dL (8.5-10.1); CREATININE 0.8 mg/dL (0.6-1.0); POTASSIUM 4.2 mmol/L (3.5-5.1); TOTAL PROTEIN 6.4 g/dL (6.4-8.2)
[2020-02-05 10:02] LABS: ABSOLUTE NEUTROPHILS 3.5 thou/uL (1.4-8.2); PLATELET ESTIMATE NORMAL
[2020-02-05] MEDS ORDERED: ALBUTEROL2.5 MG/0.5 INH (10:47)
[2020-02-05] MEDS ORDERED: ENOXAPARIN40 MG/0.1 SUBQ (10:48)
--- NOTE | 2020-02-05 11:03 | PLAN ---
[facility] [address] [place] [address] REHAB UNIT PLAN OF CARE Name: COTY LUZ Room #: 510-P ADM IN M.R.#: [id number] Admission: 01/25/20 Attend Phys: Tremayne Tsang MD Discharge: Date of : 34 Report #: [id number] THIS REPORT FOR: //name// CC: Tremayne Luz DATE OF SERVICE: 01/27/2020 PROGRESS NOTE AND OVERALL PLAN OF CARE SUBJECTIVE: The patient was seen back today in followup. She is pleasant, in no distress. Temperature 97.9, pulse 80, respirations 16, and blood pressure 180/95. She notes that her family member will be bringing in the left wrist splint for her. We are working with her with basic functional mobility issues with bed to wheelchair transfers, max assist x 2. Bed mobility is max assist. In occupational therapy, lower body dressing is dependent, upper body dressing is dependent. Speech therapy is involved with mild cognition, moderate memory. Her diet is mechanical soft with all liquids. ASSESSMENT: 1. 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 2. Toxic encephalopathy. 3. Healthcare-associated pneumonia. 4. Clostridium difficile colitis. 5. Electrolyte abnormalities. 6. Paroxysmal atrial fibrillation. 7. Moderately severe aortic valve stenosis. 8. Immunosuppression with corticosteroids for polymyalgia rheumatica. 9. Osteoporosis. 10. History of right rotator cuff injury. PLAN: The overall plan of care is based on the preadmission screen, post-admission physician evaluation and information garnered from therapy assessments. 1. Estimated length of stay was discussed with the team conference yesterday and will be for 10-14 days as discussed yesterday. 2. Medical prognosis is reasonably good. 3. Anticipated interventions includes the interdisciplinary acute inpatient rehabilitation program. 4. Anticipated functional outcomes would be for the patient to improve as far as basic transfers, mobility, ADLs and we have speech therapy involved regarding cognition with her noted prior toxic encephalopathy. Goals to improve her function, so she can be again at a level where she can return back to the assisted living facility. 5. Discharge destination would be back to her assisted living facility. 6. Expected therapy by discipline includes PT, OT and speech 1 [place] [address] REHAB UNIT PLAN OF CARE Name: COTY LUZ Room #: 510-P [facility] IN [facility].#: [id number] Admission: 01/25/20 Attend Phys: Tremayne Tsang MD Discharge: Date of : 34 Report #: [id number] each five days a week throughout the duration of the acute inpatient rehabilitation stay. <ELECTRONICALLY SIGNED> By: Tremayne Tsang MD 02/05/20 1103 [id number] Tremayne Tsang MD /nt
--- NOTE | 2020-02-05 11:03 | H ---
[facility] [place] [address] HISTORY AND PHYSICAL Name: WAI LUZKim Chirinos Room #: 510-P ADM IN M.R.#: [id number] Admission: 01/25/20 Attend Phys: Tremayne Tsang MD Discharge: Date of : 34 Report #: [id number] THIS REPORT FOR: cc: Royce Luz MD, Mark A. MD Smithson,Tremayne Merida MD ~ CC: Tremayne Luz DATE OF SERVICE: 01/25/2020 HISTORY AND PHYSICAL AND POST-ADMISSION PHYSICIAN EVALUATION HISTORY OF PRESENT ILLNESS: The patient an 84-year-old female who was originally admitted to [facility] on 01/18/2020 from her assisted living facility with diarrhea, low-grade fever and weakness. She was diagnosed with healthcare-associated pneumonia, possible aspiration, Clostridium difficile colitis. She was evaluated and followed by Infectious Disease, Pulmonary and Cardiology. She was noted to have paroxysmal atrial fibrillation during her acute hospitalization with Cardiology involved and was started on amiodarone loading. The patient has a prior CVA with significant left hemiparesis and with her multiple medical comorbidities, atrial fibrillation, pneumonia, electrolyte abnormalities. She was diagnosed with a toxic encephalopathy with improvement overall noted. 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 She has had further decline in her functional abilities and has now been admitted for acute in-hospital inpatient rehabilitation. She has been able to live at an assisted living facility level prior to this. PAST MEDICAL HISTORY: As noted above. She has a history of the CVA approximately 1 year prior with significant left hemiparesis. She also suffered a right rotator cuff injury in that timeframe. She has a history of moderately severe aortic valve stenosis, hypertension, GERD, autoimmune uveitis, bilateral cataract removals. She has idiopathic peripheral neuropathy. PAST SURGICAL HISTORY: Includes hysterectomy, bilateral cataracts removals as noted above. Bilateral carpal tunnel repair surgeries. ALLERGIES: INCLUDE SULFA. SHE DEVELOPS DIZZINESS WITH NEURONTIN. REVIEW OF SYSTEMS: She has had some urinary retention in the past. No current complaints of chest pain, shortness of breath, abdominal discomfort. SOCIAL HISTORY: , lives at the [facility]. She has needed assistance post due to stroke back in 12/31/2018. She has assists with ADLs and IADLs provided. She utilizes a wheelchair post with CVA. [address] [address] HISTORY AND PHYSICAL Name: COTY LUZ Taran Room #: 510-P [facility] IN ..#: [id number] Admission: 01/25/20 Attend Phys: Tremayne Tsang MD Discharge: Date of : 34 Report #: [id number] PHYSICAL EXAMINATION: GENERAL: She is a pleasant 84-year-old slender white female in no obvious distress. The patient is alert. She is pleasant. VITAL SIGNS: Last recorded temperature 97.7, pulse 85, respirations 20, blood pressure 142/63. HEENT: Appeared to be benign. CHEST: Sounded clear overall. CARDIOVASCULAR: Sounded regular rate. ABDOMEN: Bowel sounds positive, nontender. GENITOURINARY AND RECTAL: Deferred. EXTREMITIES: She does have some left shoulder movement, a grade 2-. Left dyer and washer is very weak. Unable to lift the left upper extremity against gravity. Unable to lift the left lower extremity against gravity. Her right shoulder reveals some decreased range of motion with the prior rotator cuff injury. Extremities revealed trace distal pedal edema. Negative Homans. Strength of the right upper and right lower extremity is probably at least a grade 3+ to 4 minus. Sensation appears grossly intact. ASSESSMENT: An 84-year-old white female with the following problem list: 1. 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 2. Toxic encephalopathy, noted to be improving. 3. Healthcare-associated pneumonia with possible aspiration. 4. Clostridium difficile colitis. 5. Electrolyte abnormalities. 6. Paroxysmal atrial fibrillation. 7. Moderately severe aortic valve stenosis. 8. Immunosuppression with corticosteroids for polymyalgia rheumatica. 9. Osteoporosis. 10. History of right rotator cuff injury. PLAN: The patient has been admitted for acute in-hospital inpatient rehabilitation. From a postadmission physician evaluation perspective, there are no relevant changes since the preadmission screening. Please see the above review of prior and current medical and functional conditions and comorbidities. Please see the patient's previous and current functional status. The initial plan of care involves the interdisciplinary acute inpatient rehabilitation program. Measurable functional goals would be for the patient to reach a level that she was at before as far as requiring the assistance, but being able to be at the level such that she can return back to the assisted living facility that she was at. Potential barriers would include her multiple medical comorbidities and decreased functional status. The patient meets diagnostic criteria for an acute in-hospital inpatient rehabilitation stay. She meets the medical necessity criteria. She does have [address] [address] HISTORY AND PHYSICAL Name: COTY LUZ Room #: 510-P [facility] IN M.R.#: [id number] Admission: 01/25/20 Attend Phys: Tremayne Tsang MD Discharge: Date of : 34 Report #: [id number] the tolerance for therapies and has appropriate discharge goals back to the home setting. <ELECTRONICALLY SIGNED> By: Tremayne Tsang MD 02/05/20 [id number] Tremayne Tsang MD /nt
[2020-02-05] MEDS ORDERED: PACERONE 200 M200 M1 PO ×2 (11:04→11:14)
[2020-02-05] MEDS ORDERED: CHOLESTYRAMINE L4 GM PO (11:04)
[2020-02-05] MEDS ORDERED: COREG 6.25 MG PO (11:05)
[2020-02-05] MEDS ORDERED: AMLODIPINE BESYLATE PO (11:05)
[2020-02-05] MEDS ORDERED: ARTHRITIS PAIN M3 O1 TOP (11:06)
[2020-02-05] MEDS ORDERED: Meloxicam 7.5 MG Tab PO (11:06)
[2020-02-05] MEDS ORDERED: DICLOFENAC SODIUM TOP (11:06)
[2020-02-05] MEDS ORDERED: LYRICA 50 MG50 MG PO (11:07)
[2020-02-05] MEDS ORDERED: TYLENOL EXTRA500 MG PO (11:07)
[2020-02-05] MEDS ORDERED: PRED FORTE 1% EY5 M1 OPHTHALMIC (11:08)
[2020-02-05] MEDS ORDERED: TRUSOPT OCUMETE10 ML OPHTHALMIC (11:09)
[2020-02-05] MEDS ORDERED: BRIMONIDINE TART5 ML OPHTHALMIC (11:09)
[2020-02-05] MEDS ORDERED: FLORANEX GRANU1 EACH PO (11:10)
[2020-02-05] MEDS ORDERED: ARTIFICIAL TEA1 EACH OPHTHALMIC (11:10)
[2020-02-05] MEDS ORDERED: PANTOPRAZOLE 20 MG PO (11:11)
[2020-02-05] MEDS ORDERED: ZOFRAN 4 MG DISSOLVE (11:11)
[2020-02-05] MEDS ORDERED: LOPERAMIDE 2 MG PO (11:11)
[2020-02-05] MEDS ORDERED: [UNRECOGNIZED DRUG - OTHER] DISSOLVE (11:11)
[2020-02-05] MEDS ORDERED: [UNRECOGNIZED DRUG - OTHER] PO (11:12)
[2020-02-05] MEDS ORDERED: LIDOPATCH1 EACH TRANSDERM (11:12)
[2020-02-05] MEDS ORDERED: Unicomplex M Tablet PO (11:13)
[2020-02-05] MEDS ORDERED: VITAMIN D325 MCG PO (11:13)
--- NOTE | 2020-02-05 15:46 | NUR ---
ASSUMED CARES AT 0700. PT AWAKE, ALERT AND ORIENTED*4. C/O RIGHT SHOULDER PAIN, VOLTAREN GEL APPLIED NEEDED. VITALS REMAIN STABLE. PT CONTINUES TO HAVE LEFT SIDED HEMIPARESIS. LEFT FOOT EDEMA REMAINS, EXTREMITIES ELEVATED. *2 BM TODAY, LOOSE. ABDOMEN SOFT AND ROUND WITH ACTIVE BS, PT DENIES N&V. SPECIAL ISOLATION MAINTAINED. PT UP WITH MAX ASSIST, GB AND W/C. Q1H VISUAL CHECKS. CALL LIGHT WITHIN REACH. FALL PRECAUTIONS IN PLACE
[2020-02-05 19:58] VITALS: BP 139/71
--- NOTE | 2020-02-06 00:32 | NUR ---
TOOK OVER PT CARE AT 1900. ASSESSMENT DONE AND VSS. MEDS, CREAMS AND EYE DROPS GIVEN AND WELL TOLERATED. FALL PRECAUTIONS IN PLACE. HOURLY ROUNDING. CALL LIGHT IN REACH. WILL CONTINUE TO MONITOR.
[2020-02-06 08:28] VITALS: BP 145/72
--- NOTE | 2020-02-06 12:01 | NUR ---
ASSUMED CARE AT 0700, PT A&O X 4, NO ACUTE DISTRESS DURING SHIFT. VSS O2 ON RA. MEDS GIVEN WHOLE WITH WATER. VOLTERN GEL FOR R SHOULDER PAIN. PARTICIPATED IN FARRUKH THERAPIES, CONTINENT OF B&B, USES BEDPAN AND BSC. BED IN LOWEST POSITION, CALL LIGHT WITHIN REACH, WILL CONTINUE TO MONITOR PER POC.
[2020-02-06 20:13] VITALS: BP 145/71
--- NOTE | 2020-02-07 02:51 | NUR ---
assumed care at approx 1900 evening 02/05. pt lying in bed with head of bed elevated. pt remains in isolation as ordered. pt took hs meds with water tolerating well. pt incontinent of urine and assisted with bedpan and changing of pad. pt appears to be sleeping soundly with hourly rounding checks. bed alarm on and call light in reach. will continue to monitor.
[2020-02-07 07:31] VITALS: BP 136/68
--- NOTE | 2020-02-07 14:25 | NUR ---
ASSUMED CARES AT 0700. PT AWAKE, ALERT AND ORIENTED*4. C/O RIGHT SHOULDER PAIN, VOLTAREN GEL APPLIED AND ACETAMINOPHEN ADMINISTERED. VITALS REMAIN STABLE. PT CONTINUES TO HAVE RLE EDEMA, EXTREMITIES ELEVATED. PT VOIDING PER BEDPAN. ATE 10-20% OF HER MEALS AND 100% OF THE SUPPLEMENT. UP WITH MAX ASSIST OF 2 PIVOT TRANSFERS. ISOLATION MAINTAINED. Q1H VISUAL CHECKS. CALL LIGHT WITHIN REACH. FALL PRECAUTIONS IN PLACE
[2020-02-07 19:25] VITALS: BP 138/55
--- NOTE | 2020-02-08 02:26 | NUR ---
PT CARE ASSSUMED AT 1915 WITH PT IN BED WATCHING TV.PT IS ALERT AND ORIENTED X3.PT IS UP TO BSC X2.PT USED BEDPAN DURING SHIFT AND PT CALLS APPROPRIATELY.PT C/O OF SHOULDER PAIN AND VOLTERENE GEL ADMINISTERED AND SCHEDULE TYLEOL GIVEN.PT HAD BM .LIDOCAIBE PATCHED ADMINISTERED ON RT ARM.PT TOOK MEDS ONE AT A TIME WITH NO ISSUES.WILL CONTINUE TO MONITOR
[2020-02-08 07:54] VITALS: BP 149/61
--- NOTE | 2020-02-08 11:44 | NUR ---
ASSUMED CARE AT 0700, REPORTS SLEPT GOOD LAST NIGHT. ASSISTED PT TO BSC WITH 2X ASSIST 2TIME ALREADAY. HAD SMALL SOFT BM AND URINATE ONE TIME PT A&O X 4, FORGETFUL AT TIME. VSS, 02 ON RA. C/O RIGHT SHOULDER PAIN. PT ON FARRUKH TYLENOL AND VOLTARENE GEL. MEDS TOLERATED WHOLE WITH WATER. ISO PRECAUTIONS FOR C-DIFF AND MRSA CONTINUED. CONT OF B&B. EYES DROPS AND TOPICAL MEDS GIVEN ORDERED. SORE ON RIGHT ELBOW COVERED WITH OPTIFOAM. ZGUARD FOR SACRAL REDNESS. TURN Q2HR. DISCUSSED WITH PT ABOUT GETTING UP FOR EAT MEALS AND USES BSC DURING DAY. PT WAS UP IN WC THIS AM. EATING WITH ST AT DINNING ROOM. TAKE MEDS ONE AT THE TIME. WILL CONTINUE TO FOLLOW UP WITH PLANS OF CARE. OFFERED SUPPORTIVE CARE. REASSESSMENT PER CHART. OFFERED SUPPORTIVE CARE. ENCOURAGED PT TO VOICE HER NEEDS. PT UP TO A GYM WITH THERAPY THIS AM. PT WILL BE DISCHARGE TOMORROW. SHE IS IN GOOD SPIRIT AT THIS MOMENT. FR. BARBOZA CAME TO SEE HER THIS AM. PT WAS PLEASED WITH IT. WILL CONTINUE TO MONITOR.
--- NOTE | 2020-02-08 11:51 | NUR ---
cm notified by bedside nurse that [facility] called and requested updates. cm team to send updates. pt dc on with [facility].
--- NOTE | 2020-02-08 16:54 | NUR ---
FAXED UPDATE TO [facility] RECEIVED CONFIRMATION WILL F/U WITH FACILITY IN THE AM PT TO DC TOMORROW 02/08 BACK TO [facility].
[2020-02-08 16:56] VITALS: BP 158/86
[2020-02-08 19:43] VITALS: BP 120/65
--- NOTE | 2020-02-09 02:28 | NUR ---
Assumed pt care at 1900,A/OX4. VSS.C/o right shoulder pain especially with movement, Voltaren gel/lidocaine patch applie on area. Pt with left hemiparesis, requires max assist with transfers. Redness noted on periarea, moisture barrier applied with each episode of toileting. Edema noted on left leg/foot and left arm extremities elevated while in bed. Fall precautions in place, calls appoprriately for help. C-diff/MRSA isolation maintained. Pt resting quietly at this time, will continue to monitor pt.
[2020-02-09 07:52] VITALS: BP 135/68
[2020-02-09 08:00] VITALS: BP 173/83
--- NOTE | 2020-02-09 08:19 | NUR ---
received phone call from pt son rt concerns about dc to her [facility] rt covid cases and wants to speak with dr sparks. cm passed on information to .
--- NOTE | 2020-02-09 12:29 | NUR ---
FAXED REFERRAL TO [facility] SPOKE WITH JOSEPH IN ADM SHE RECEIVED REFERRAL AND THEY ARE NOT ACCEPTING NEW ADMISSIONS NOW. FAXED REFERRAL TO [facility] RECEIVED CONFIRMATION AND LEFT MSG WITH ANTONIO IN ADM. DP TO FOLLOW.
--- NOTE | 2020-02-09 16:04 | NUR ---
ASSUMED CARE AT 0700, PT A&O X 4, NO ACUTE DISTRESS DURING SHIFT. VSS, O2 ON RA. PT DENIES ANY PAIN ONLY SORENESS TO R SHOULDER AND HAS FARRUKH VOLTERAN GEL FOR IT. TOLERATED MEDS WITH WATER. PARTICIPATED IN FARRUKH THERAPIES. CONTINENT OF B&B, USES BSC AND BEDPAN, BM TODAY. RESTIN GIN BED, CALL LIGHT WITHIN REACH, WILL CONTINUE TO MONITOR PER POC.
[2020-02-09 16:44] VITALS: BP 152/76
--- NOTE | 2020-02-09 16:46 | NUR ---
FAXED REFERRAL TO [facility] RECEIVED CONFIRMATION LEFT MSG WITH ADM. PT IS DC READY WILL F/U WITH FACILITY IN THE AM. DP TO FOLLOW.
[2020-02-09 19:39] VITALS: BP 120/72
--- NOTE | 2020-02-09 23:35 | NUR ---
PT ASSESSMENT COMPLETED AND VSS. MEDS GIVEN ORDERED AND WELL TOLERATED. FALL PRECAUTIONS IN PLACE. SPECIAL CONTACT ISOLATION FOLLOWED. ASST WITH FREQUENT REPOSITION FOR COMFORT USING PILLOWS. SCDS ON. LARGE AMOUNT OF URINE IN THE BEDPAN. INC AT TIMES. DENIES NEEDS. SLEEPING WELL. WILL CONTINUE TO MONITOR FREQUENTLY.
[2020-02-10 07:13] VITALS: BP 115/52
[2020-02-10 07:30] VITALS: BP 115/52
--- NOTE | 2020-02-10 10:10 | NUR ---
SPOKE WITH CAMPOS IN ADM AT [facility] THEY CAN ACCEPT PT TO DC TODAY. DP TO FOLLOW.
--- NOTE | 2020-02-10 10:49 | NUR ---
ASSUMED CARE AT 0700, REPORTS SLEPT WELL LAST NIGHT. PT A&O X 4, ABLE TO VOICE HER NEEDS. ASKED FOR BEDPAN EARLIER. ASSISTED TO BSC 2X. HAD 3X SOFT BM THIS AM. VSS, O2 ON RA. PT HAS PAIN ONLY SORENESS TO R SHOULDER RATES PAIN 7/10 AND HAS FARRUKH VOLTERAN GEL FOR IT AND TYLENOL GIVEN. TOLERATED MEDS WITH WATER. PARTICIPATED IN FARRUKH THERAPIES. CONTINENT OF B&B, USES BSC AND BEDPAN. OFFERED SUPPORTIVE CARE. ENCOURAGED PT TO VOICE HER NEEDS. [facility] ACCEPT PT TODAY. DR. KING WILL WORKING ON DISCHARGE MEDS. WILL CALL AND GIVE REPORT. PT IS UP TO THE GYM WORKING WITH PHYSICAL THERAPIST AT THIS MOMENT. FALL PRECAUTION IN PLACE. WILL CONTINUE TO MONITOR PER POC.
[2020-02-10 11:20] VITALS: BP 158/86
--- NOTE | 2020-02-10 11:52 | NUR ---
PT DISCHARGING TODAY TO [facility] FAXED DC ORDERS/SUMMARY TO FACILITY SPOKE WITH CAMPOS IN ADM SHE RECEIVED ORDERS AND ARRANGED TRANSPORT BY [facility] FOR 1430 TODAY. NOTIFIED PT'S SON DR. ANAID RAMÍREZ OF DC AND TIME OF TRANSPORT. UNIT NOTIFIED AND CHART COPY PER US. RN TO CALL REPORT TO [phone].
--- NOTE | 2020-02-10 12:01 | NUR ---
DISCHARGE NOTE: SW reviewed chart. SW notified that [facility] is able to accept pt today. SW notified 5N rehab specialist. SW notified pt's physician. Discharge orders/summary completed. data processing systems project planner coordinated and notified pt's family. No SW needs identified at this time, but is available to assist should needs arise.
--- NOTE | 2020-02-10 15:02 | NUR ---
CALLED AND GAVE REPORT TO DAV[facility] CHEN AT [facility] [place] AT 1100. INFORMATION AND ORDERS FAXED BY CM TO [facility].
== END 2020-02-10 15:06 | DRG 91 ==
PROVIDERS: Internal Medicine; Nurse Practitioner Family; ADMIT Physical Medicine & Rehabilitation
DX: G92 Toxic encephalopathy (principal); J69.0 Pneumonitis due to inhalation of food and vomit; E43 Unspecified severe protein-calorie malnutrition; I69.354 Hemiplegia and hemiparesis following cerebral infarction affecting left non-dominant side; A04.72 Enterocolitis due to Clostridium difficile, not specified as recurrent; N39.0 Urinary tract infection, site not specified; I48.0 Paroxysmal atrial fibrillation; I35.0 Nonrheumatic aortic (valve) stenosis; M35.3 Polymyalgia rheumatica; M81.0 Age-related osteoporosis without current pathological fracture; I10 Essential (primary) hypertension; K21.9 Gastro-esophageal reflux disease without esophagitis; R53.81 Other malaise; F32.9 Major depressive disorder, single episode, unspecified; R13.12 Dysphagia, oropharyngeal phase; E87.6 Hypokalemia; E86.0 Dehydration; R33.9 Retention of urine, unspecified; N32.81 Overactive bladder; G62.9 Polyneuropathy, unspecified; E55.9 Vitamin D deficiency, unspecified; M19.90 Unspecified osteoarthritis, unspecified site; E78.5 Hyperlipidemia, unspecified; G31.84 Mild cognitive impairment of uncertain or unknown etiology; Z90.710 Acquired absence of both cervix and uterus; Z79.01 Long term (current) use of anticoagulants; I69.391 Dysphagia following cerebral infarction; Z98.42 Cataract extraction status, left eye; Z98.41 Cataract extraction status, right eye; Z88.2 Allergy status to sulfonamides; Z88.8 Allergy status to other drugs, medicaments and biological substances; Z68.26 Body mass index [BMI] 26.0-26.9, adult
CPT/HCPCS: 10112